=== PATIENT | female | born 1940 | race Caucasian/White ===

== ENCOUNTER 2022-02-25 06:54 | Inpatient (IN) ==
[2022-02-25] MEDS ORDERED: SODIUM CHLORIDE 0.9% 500 ML IV SCH (07:15)
--- NOTE | 2022-02-25 07:15 | Emergency Department Note ---
Impression & Plan Weakness, Urinary tract infection, Hypomagnesemia ED Provider Note NAME: STEFFANIE Yan MINOR AGE: 81 SEX: F : 1940 ARRIVES VIA: Walk-In INFORMANT: Patient, ED PROVIDER(S): Sen Alvarez DO CHIEF COMPLAINT: Weakness HPI: The patient is an 81-year-old female who presented to the emergency department with her granddaughter for evaluation of generalized weakness. Apparently the patient has been having problems for a few months. She is concerned because her symptoms are not any have been worsening and especially over the last week. She has been noticing that she is become very weak. She has difficulty breathing with any ambulation. She notices exertional dyspnea as well. She notices no orthopnea. She has had a dry cough but has had 2 episodes of COVID-19 infection since October of this year. She does not notice any lower extremity swelling. She does not notice any chest pain. She was seen by her primary crystal gazer recently and had an echocardiogram but does not know the results of this test. She does have a history of cardiomyopathy but she states this is not ischemic cardiomyopathy. She is been compliant with her usual medications. She had decreased p.o. intake. She has loose bowel movements but this is not new for her. She denies having any black or bloody bowel movements. She also notices lower abdominal pain which she states is suprapubic in nature and shoots up into her epigastric region. She notices this pain intermittently and is associated with nausea. The patient also has been noticed to have a low-grade fever around 100 degrees. She also was noted to have episodes of hypoxia when her pulse ox was checked at home. She has had exertional pulse ox is in the 80s. She is also noticed back pain but this is not new for her. She has a history of spinal stenosis. ROS: See above HPI for pertinent positives & negatives. A total of 10 systems reviewed and were otherwise negative. PAST MEDICAL HISTORY: See Below PAST SURGICAL HISTORY: See Below FAMILY HISTORY: See Below SOCIAL HISTORY: See Below HOME MEDICATIONS: See Below ALLERGIES: See Below VITALS: See Below PHYSICAL EXAMINATION: GENERAL: The patient is awake and alert. She is comfortable appearing. EYES: The conjunctivae are clear. The pupils are round and reactive. EARS, NOSE, MOUTH AND THROAT: The nose is without any evidence of any deformity. Mucous membranes are dry. NECK: The neck is nontender and supple. RESPIRATORY: Normal respiratory effort is noted there is no evidence of wheezing rhonchi or rales CARDIOVASCULAR: Regular rate and rhythm noted there no murmurs rubs or gallops normal S1 normal S2. GASTROINTESTINAL: Abdomen is soft and nondistended. There is suprapubic tenderness to palpation but no guarding rigidity. MUSCULOSKELETAL/EXTREMITIES: There is no evidence of gross deformity full range of motion is noted in the hips and shoulders. SKIN: The skin is warm and dry. Trace pedal edema was noted bilaterally. NEUROLOGIC: Patient is awake alert and oriented x3. Strength was symmetric but diminished. There is no facial droop. Speech is clear. MEDICAL DECISION MAKING: Patient is an 81-year-old female who presented to the emergency department for evaluation of weakness and shortness of breath. The patient is noticed worsening shortness of breath with exertion as well as generalized weakness over the last few weeks. The patient had COVID infection in the past. She was unsure if this was secondary to COVID. She was also noted to have hypoxia by family members previously when they checked her pulse ox at home. I discussed the patient's laboratory and radiographic studies with her. She was treated with a small fluid bolus as well as IV antibiotics. Given the patient's overall condition and findings of hypoxia at home I did discuss her case with the on- call hospitalist. The degree to evaluate the patient in the emergency department for further management and disposition. Triage Nursing notes reviewed. Prior medical records reviewed Vital Signs: reviewed and remarkable for elevated blood pressure. Differential diagnosis: Infection, dehydration, metabolic abnormality, hypo/hyperglycemia, electrolyte disturbance, anemia, hypoxia, cardiac sources, intracerebral event, toxicologic, neurologic, as well as other pathologies. ER treatment provided: See below Diagnostics interpreted by me: ECG: EKG was obtained in the emergency department. My interpretation is sinus rhythm at 67 bpm. Left bundle branch block pattern was appreciated. No previous tracing was available Cardiac Monitoring: An order was placed for continuous cardiac monitoring. The monitor shows a rate of 77 bpm with sinus rhythm. Laboratory studies: As stated above and show below. Imaging studies: See below Consultation(s): I discussed this case with Dr. Abad who is on-call for the [facility] hospitalist group. Past Med/Surg History Medical History Cardiomyopathy High cholesterol Spinal stenosis Valvular heart disease Surgical History H/O: hysterectomy History of appendectomy History of cholecystectomy Social History Smoking Status: Never smoker Feels Safe at Home: Yes Allergies Allergies Allergy/AdvReac Type Severity Reaction Status Date / Time amoxicillin [From Augmentin] Allergy Severe Anaphylaxis Unverified 02/25/22 08:50 cefuroxime Allergy Severe Anaphylaxis Unverified 02/25/22 08:50 clarithromycin Allergy Severe Anaphylaxis Unverified 02/25/22 08:50 clavulanic acid Allergy Severe Anaphylaxis Unverified 02/25/22 08:50 [From Augmentin] erythromycin base Allergy Severe Anaphylaxis Unverified 02/25/22 08:50 Penicillins Allergy Severe Anaphylaxis Unverified 02/25/22 08:50 phenobarbital Allergy Severe Anaphylaxis Unverified 02/25/22 08:50 Home Meds Home Medications Medication Instructions Recorded Confirmed Spbjhkt-Uzhdkgjln-Size-D3 3 tab PO QAM 02/25/22 02/25/22 aspirin 81 mg tablet,delayed 81 mg PO QAM 02/25/22 02/25/22 release atorvastatin 80 mg tablet 80 mg PO HS 02/25/22 02/25/22 carvedilol 25 mg tablet 25 mg PO BID 02/25/22 02/25/22 cyanocobalamin (vitamin B-12) 1,000 mcg SUBCUT .EVERY 3 WEEKS 02/25/22 02/25/22 1,000 mcg/mL injection solution esomeprazole magnesium 40 mg 40 mg PO QAM 02/25/22 02/25/22 capsule,delayed release ferrous sulfate 325 mg (65 mg 325 mg PO QAM 02/25/22 02/25/22 iron) tablet (iron) folic acid 800 mcg tablet 0.8 mg PO 3XWK 02/25/22 02/25/22 ipratropium 0.5 mg-albuterol 3 mg 3 ml INHALATION QID PRN 02/25/22 02/25/22 (2.5 mg base)/3 mL nebulization soln naproxen 500 mg tablet 500 mg PO DAILY PRN 02/25/22 02/25/22 omega 4-vkt-thc-fish oil 1,000 mg 1 cap PO QAM 02/25/22 02/25/22 (120 mg-180 mg) capsule (Fish Oil) paroxetine HCl 20 mg tablet 20 mg PO QAM 02/25/22 02/25/22 sacubitril 24 mg-valsartan 26 mg 1 tab PO BID 02/25/22 02/25/22 tablet (Entresto) spironolactone 25 mg tablet 25 mg PO QAM 02/25/22 02/25/22 tolterodine 4 mg capsule,extended 4 mg PO QAM 02/25/22 02/25/22 release 24 hr vitamins A,C,R-zbap-nwhuet 7,160 2 tab PO HS 02/25/22 02/25/22 unit-113 mg-100 unit tablet (PreserVision AREDS) Results & Data (ED) Vital Signs Vital Signs - 24 hr 02/25/22 06:54 02/25/22 07:22 02/25/22 07:30 Temperature 36.4 C L Temperature Source Oral Pulse Rate 70 68 67 Pulse Rate [Apical] Pulse Rate from SpO2 Sensor 68 71 Respiratory Rate 16 20 28 H Respiratory Effort / Characteristics Non-Labored Spontaneous Respiratory Depth Normal Respiratory Pattern Regular Blood Pressure 115/69 118/75 116/61 Blood Pressure [Left Arm] Blood Pressure Mean 84 89 79 Blood Pressure Mean [Left Arm] Blood Pressure Position Sitting Pulse Oximetry 95 94 95 Oxygen Delivery Method Room Air Room Air Room Air Oxygen Flow Rate Sepsis Recent Fever Within 48 Hours Yes Sepsis New/Unexplained Change in Mental Status No Sepsis Action Taken by Nursing No Action Required Oxygen Flow Rate - Titration Pulse Oximetry Post Tiitration 02/25/22 07:40 02/25/22 08:00 02/25/22 08:30 Temperature Temperature Source Pulse Rate 72 71 Pulse Rate [Apical] Pulse Rate from SpO2 Sensor 72 Respiratory Rate 19 Respiratory Effort / Characteristics Non-Labored Spontaneous Respiratory Depth Respiratory Pattern Regular Blood Pressure 109/55 L Blood Pressure [Left Arm] Blood Pressure Mean 73 Blood Pressure Mean [Left Arm] Blood Pressure Position Pulse Oximetry 95 91 84 L Oxygen Delivery Method Room Air Room Air Room Air Oxygen Flow Rate Sepsis Recent Fever Within 48 Hours Sepsis New/Unexplained Change in Mental Status Sepsis Action Taken by Nursing Oxygen Flow Rate - Titration 2 Pulse Oximetry Post Tiitration 96 02/25/22 09:00 02/25/22 09:30 02/25/22 10:00 Temperature Temperature Source Pulse Rate 72 69 73 Pulse Rate [Apical] Pulse Rate from SpO2 Sensor 71 69 73 Respiratory Rate 18 15 15 Respiratory Effort / Characteristics Respiratory Depth Respiratory Pattern Blood Pressure 111/62 122/62 119/57 L Blood Pressure [Left Arm] Blood Pressure Mean 78 82 77 Blood Pressure Mean [Left Arm] Blood Pressure Position Pulse Oximetry 96 95 96 Oxygen Delivery Method Nasal Cannula Nasal Cannula Nasal Cannula Oxygen Flow Rate 2 2 2 Sepsis Recent Fever Within 48 Hours Sepsis New/Unexplained Change in Mental Status Sepsis Action Taken by Nursing Oxygen Flow Rate - Titration Pulse Oximetry Post Tiitration 02/25/22 11:00 02/25/22 11:30 02/25/22 12:00 Temperature 37 C Temperature Source Oral Pulse Rate 70 77 Pulse Rate [Apical] 77 Pulse Rate from SpO2 Sensor 69 Respiratory Rate 16 22 25 H Respiratory Effort / Characteristics Respiratory Depth Respiratory Pattern Blood Pressure 132/71 148/76 H Blood Pressure [Left Arm] 127/72 Blood Pressure Mean 91 100 Blood Pressure Mean [Left Arm] 90 Blood Pressure Position Pulse Oximetry 95 96 Oxygen Delivery Method Nasal Cannula Nasal Cannula Oxygen Flow Rate 2 2 Sepsis Recent Fever Within 48 Hours Sepsis New/Unexplained Change in Mental Status Sepsis Action Taken by Nursing Oxygen Flow Rate - Titration Pulse Oximetry Post Tiitration Home Medications Current Medication List: was personally reviewed by me Laboratory Data Attestation: I reviewed the patient's lab results. Result diagrams: 02/25/22 07:27 02/25/22 07:27 Lab Results 02/25/22 02/25/22 02/25/22 Range/Units 07:27 07:27 07:27 WBC 13.20 H (4.8-10.8) K/uL RBC 3.39 L (4.2-5.4) M/uL Hgb 10.4 L (12.0-16.0) g/dL Hct 31.7 L (37-47) % MCV 93.5 (80-100) fL MCH 30.7 (25-34) pg MCHC 32.8 (32-36) g/dL RDW Std Deviation 45.9 (36.4-46.3) fL RDW Coeff of [place] 13.4 (11.5-14.5) % Plt Count 186 (130-400) K/uL MPV 10.1 (7.4-10.4) fL Immature Gran % (Auto) 0.2 % Neut % (Auto) 75.8 % Lymph % (Auto) 11.6 % [place] % (Auto) 12.0 % Eos % (Auto) 0.2 % Baso % (Auto) 0.2 % Neut # (Auto) 10.01 H (1.4-6.5) K/uL Lymph # (Auto) 1.53 (1.2-3.4) K/uL [place] # (Auto) 1.59 H (0.11-0.59) K/uL Eos # (Auto) 0.02 (0-0.5) K/uL Baso # (Auto) 0.02 (0-0.2) K/uL Immature Gran # (Auto) 0.03 H (0.00-0.02) K/uL ESR 12 (0-30) mm/hr PT 11.6 (9.0-12.0) Seconds INR 1.1 (0.9-1.1) APTT 24.4 (21.0-31.0) Seconds PTT Ratio 0.9 Sodium (136-145) mmol/L Potassium (3.5-5.1) mmol/L Chloride (98-107) mmol/L Carbon Dioxide (21-32) mmol/L Anion Gap (3-11) BUN (6-23) mg/dl Creatinine (0.6-1.2) mg/dl Est Cr Clr Drug Dosing Est GFR ( Amer) ml/min Est GFR (Non-Af Amer) ml/min BUN/Creatinine Ratio (10-20) Glucose (70-99(Fasting)) mg/dl Lactate (0.4-2.0) mmol/L Calcium (8.5-10.1) mg/dl Magnesium (1.7-2.4) mg/dl Total Bilirubin (0.2-1.0) mg/dl AST (13-39) U/L ALT (7-52) U/L Alkaline Phosphatase (34-104) U/L Total Creatine Kinase (26-192) U/L Troponin I High Sens (0-14) pg/ml C-Reactive Protein (0-0.5) mg/dl Total Protein (6.0-8.3) gm/dl Albumin (3.4-5.0) gm/dl Globulin (2.5-4.0) gm/dl Albumin/Globulin Ratio (0.9-2) Procalcitonin (0-0.5) ng/ml TSH (0.300-4.500) uIu/ml Free T4 (0.61-1.60) ng/dl Urine Color Urine Appearance (Clear) Urine pH (4.5-7.5) Ur Specific [place] (1.000-1.030) Urine Protein (Negative) Urine Glucose (UA) (Negative) Urine Ketones (Negative) Urine Blood (Negative) Urine Nitrite (Negative) Urine Bilirubin (Negative) Urine Urobilinogen (Negative) Ur Leukocyte Esterase (Negative) Urine WBC (Auto) (0-5) /hpf Urine RBC (Auto) (0-4) /hpf U Hyaline Cast (Auto) (0-5) /lpf U Epithel Cells (Auto) (0-5) /lpf Urine Bacteria (Auto) (Negative) SARS-CoV-2, RNA, NAAT (NEGATIVE) 02/25/22 02/25/22 02/25/22 Range/Units 07:27 07:27 07:27 WBC (4.8-10.8) K/uL RBC (4.2-5.4) M/uL Hgb (12.0-16.0) g/dL Hct (37-47) % MCV (80-100) fL MCH (25-34) pg MCHC (32-36) g/dL RDW Std Deviation (36.4-46.3) fL RDW Coeff of [place] (11.5-14.5) % Plt Count (130-400) K/uL MPV (7.4-10.4) fL Immature Gran % (Auto) % Neut % (Auto) % Lymph % (Auto) % Meeker % (Auto) % Eos % (Auto) % Baso % (Auto) % Neut # (Auto) (1.4-6.5) K/uL Lymph # (Auto) (1.2-3.4) K/uL [place] # (Auto) (0.11-0.59) K/uL Eos # (Auto) (0-0.5) K/uL Baso # (Auto) (0-0.2) K/uL Immature Gran # (Auto) (0.00-0.02) K/uL ESR (0-30) mm/hr PT (9.0-12.0) Seconds INR (0.9-1.1) APTT (21.0-31.0) Seconds PTT Ratio Sodium 133 L (136-145) mmol/L Potassium 3.6 (3.5-5.1) mmol/L Chloride 100 (98-107) mmol/L Carbon Dioxide 24 (21-32) mmol/L Anion Gap 9 (3-11) BUN 10 (6-23) mg/dl Creatinine 0.86 (0.6-1.2) mg/dl Est Cr Clr Drug Dosing Not Reportable Est GFR ( Amer) 72.4 ml/min Est GFR (Non-Af Amer) 62.5 ml/min BUN/Creatinine Ratio 11.6 (10-20) Glucose 112 H (70-99(Fasting)) mg/dl Lactate (0.4-2.0) mmol/L Calcium 8.6 (8.5-10.1) mg/dl Magnesium 1.1 L (1.7-2.4) mg/dl Total Bilirubin 1.1 H (0.2-1.0) mg/dl AST 9 L (13-39) U/L ALT 6 L (7-52) U/L Alkaline Phosphatase 95 (34-104) U/L Total Creatine Kinase 39 (26-192) U/L Troponin I High Sens 15.5 H (0-14) pg/ml C-Reactive Protein 10.03 H (0-0.5) mg/dl Total Protein 6.1 (6.0-8.3) gm/dl Albumin 3.6 (3.4-5.0) gm/dl Globulin 2.5 (2.5-4.0) gm/dl Albumin/Globulin Ratio 1.4 (0.9-2) Procalcitonin 0.12 (0-0.5) ng/ml TSH 5.129 H (0.300-4.500) uIu/ml Free T4 1.24 (0.61-1.60) ng/dl Urine Color Urine Appearance (Clear) Urine pH (4.5-7.5) Ur Specific [place] (1.000-1.030) Urine Protein (Negative) Urine Glucose (UA) (Negative) Urine Ketones (Negative) Urine Blood (Negative) Urine Nitrite (Negative) Urine Bilirubin (Negative) Urine Urobilinogen (Negative) Ur Leukocyte Esterase (Negative) Urine WBC (Auto) (0-5) /hpf Urine RBC (Auto) (0-4) /hpf U Hyaline Cast (Auto) (0-5) /lpf U Epithel Cells (Auto) (0-5) /lpf Urine Bacteria (Auto) (Negative) SARS-CoV-2, RNA, NAAT (NEGATIVE) 02/25/22 02/25/22 02/25/22 Range/Units 07:49 09:00 11:10 WBC (4.8-10.8) K/uL RBC (4.2-5.4) M/uL Hgb (12.0-16.0) g/dL Hct (37-47) % MCV (80-100) fL MCH (25-34) pg MCHC (32-36) g/dL RDW Std Deviation (36.4-46.3) fL RDW Coeff of [place] (11.5-14.5) % Plt Count (130-400) K/uL MPV (7.4-10.4) fL Immature Gran % (Auto) % Neut % (Auto) % Lymph % (Auto) % [place] % (Auto) % Eos % (Auto) % Baso % (Auto) % Neut # (Auto) (1.4-6.5) K/uL Lymph # (Auto) (1.2-3.4) K/uL [place] # (Auto) (0.11-0.59) K/uL Eos # (Auto) (0-0.5) K/uL Baso # (Auto) (0-0.2) K/uL Immature Gran # (Auto) (0.00-0.02) K/uL ESR (0-30) mm/hr PT (9.0-12.0) Seconds INR (0.9-1.1) APTT (21.0-31.0) Seconds PTT Ratio Sodium (136-145) mmol/L Potassium (3.5-5.1) mmol/L Chloride (98-107) mmol/L Carbon Dioxide (21-32) mmol/L Anion Gap (3-11) BUN (6-23) mg/dl Creatinine (0.6-1.2) mg/dl Est Cr Clr Drug Dosing Est GFR ( Amer) ml/min Est GFR (Non-Af Amer) ml/min BUN/Creatinine Ratio (10-20) Glucose (70-99(Fasting)) mg/dl Lactate 0.7 (0.4-2.0) mmol/L Calcium (8.5-10.1) mg/dl Magnesium (1.7-2.4) mg/dl Total Bilirubin (0.2-1.0) mg/dl AST (13-39) U/L ALT (7-52) U/L Alkaline Phosphatase (34-104) U/L Total Creatine Kinase (26-192) U/L Troponin I High Sens (0-14) pg/ml C-Reactive Protein (0-0.5) mg/dl Total Protein (6.0-8.3) gm/dl Albumin (3.4-5.0) gm/dl Globulin (2.5-4.0) gm/dl Albumin/Globulin Ratio (0.9-2) Procalcitonin (0-0.5) ng/ml TSH (0.300-4.500) uIu/ml Free T4 (0.61-1.60) ng/dl Urine Color Yellow Urine Appearance Cloudy A (Clear) Urine pH 6.0 (4.5-7.5) Ur Specific [place] 1.004 (1.000-1.030) Urine Protein Trace H (Negative) Urine Glucose (UA) Negative (Negative) Urine Ketones Negative (Negative) Urine Blood 1+ H (Negative) Urine Nitrite Positive A (Negative) Urine Bilirubin Negative (Negative) Urine Urobilinogen Negative (Negative) Ur Leukocyte Esterase 3+ H (Negative) Urine WBC (Auto) >30 H (0-5) /hpf Urine RBC (Auto) 0-4 (0-4) /hpf U Hyaline Cast (Auto) 0 (0-5) /lpf U Epithel Cells (Auto) 5-10 H (0-5) /lpf Urine Bacteria (Auto) 4+ H (Negative) SARS-CoV-2, RNA, NAAT NEGATIVE (NEGATIVE) Administered Medications Discontinued Medications Sodium Chloride (Nss) 500 mls @ 999 mls/hr IV .Q31M YARELIS Stop: 02/25/22 07:45 Last Infusion: 02/25/22 08:18 Dose: 0 mls/hr Documented by: [id number] Admin: 02/25/22 07:47 Dose: 999 mls/hr Documented by: [id number] Magnesium Sulfate/Dextrose (Magnesium Sulfate / D5w) 1 gm in 100 mls @ 100 mls/hr IV Q1H YARELIS Stop: 02/25/22 10:20 Last Infusion: 02/25/22 11:18 Dose: 0 mls/hr Documented by: [id number] Admin: 02/25/22 10:11 Dose: 100 mls/hr Documented by: [id number] Infusion: 02/25/22 09:56 Dose: 100 mls/hr Documented by: [id number] Admin: 02/25/22 08:56 Dose: 100 mls/hr Documented by: [id number] Ceftriaxone Sodium (Rocephin) 2,000 mg in 70 mls @ 140 mls/hr IV NOW STA Stop: 02/25/22 11:26 Last Admin: 02/25/22 11:18 Dose: 140 mls/hr Documented by: [id number] Ondansetron HCl (Ondansetron Inj 2 Mg/Ml 2 Ml Vial) Confirm Administered Dose 4 mg .ROUTE .STK-MED ONE Stop: 02/25/22 11:45 Last Admin: 02/25/22 11:47 Dose: 4 mg Documented by: [id number] Imaging Data Radiologist's Impression: Chest X-Ray 02/25/22 07:12 XR chest 1V portable CLINICAL HISTORY: weakness TECHNIQUE: Single frontal radiograph of the chest was obtained. Comparison: None available at the time of this dictation. FINDINGS: No lines and tubes are seen. There is borderline cardiomegaly. The lungs are clear. There is a small left pleural effusion. IMPRESSION: Small left pleural effusion. ACT 112: Negative or not required by law. Electronically signed by: Judd Hoyt M.D. 02/25/2022 7:43 AM Abdomen/Pelvis CT 02/25/22 07:20 CT SCAN OF THE ABDOMEN AND PELVIS WITHOUT IV CONTRAST CLINICAL HISTORY: Lower abdominal pain. Nausea and vomiting. COMPARISON STUDY: No priors. TECHNIQUE: CT scan of the abdomen and pelvis is performed from the lung bases to the proximal femora. Images are reviewed in the axial, sagittal, and coronal planes. IV contrast was not administered for this examination. Note that the examination was performed in suboptimal fashion without oral and IV contrast. A dose lowering technique was utilized adhering to the principles of ALARA. CT DOSE: 479.77 mGy.cm FINDINGS: Lung bases: The heart is mildly enlarged noting trace pericardial effusion. There are scattered calcified granulomas. The lung bases are otherwise clear noting bibasilar scarring/atelectasis. There is a large hiatal hernia, with the majority of the stomach located in the thorax. Liver: The unenhanced liver is normal in size, contour, and attenuation. There is no intrahepatic biliary ductal dilatation. Gallbladder: Surgically absent noting clips in the gallbladder fossa. Spleen: Normal in size and attenuation. Pancreas: The unenhanced pancreas is moderately atrophic and grossly unremarkable. Adrenal glands: Unremarkable. Kidneys: The unenhanced kidneys demonstrate cortical atrophy and are without hydronephrosis. There are no renal calculi identified. There is no evidence of contour deforming renal mass lesion. Question trace age indeterminant subcapsular hematoma of the left kidney. There is mild nonspecific bilateral perinephric stranding. Abdominal vasculature: The abdominal aorta is normal in course and caliber noting advanced atherosclerotic calcification. Bowel: There is no bowel obstruction. Mild fecal retention is seen throughout the colon. The appendix is not identified and reported surgically absent. Peritoneum: There is no intraperitoneal free air or abdominal ascites. A midline surgical scar is noted. Lymphadenopathy: None. Pelvic viscera: The bladder is normal as visualized. The uterus is surgically absent. No adnexal lesion is seen. Skeletal structures: The skeletal structures are osteopenic. There is moderate to advanced lumbar sacral spondylosis and mild scoliosis. No lytic or blastic lesions are seen. IMPRESSION: 1. Question trace age indeterminant subcapsular hemorrhage of the left kidney. This could be further assessed with a contrast-enhanced examination if clinically warranted. 2. There is mild nonspecific bilateral perinephric stranding. Correlate with urinalysis. 3. Large hiatal hernia. 4. Cardiomegaly. 5. Additional findings as above. ACT 112: Negative or not required by law. Electronically signed by: Ty Fung M.D. 02/25/2022 9:09 AM Chest CTA 02/25/22 09:24 CT angio chest PE protocol HISTORY: 81 years-old Female with PE. Acute shortness of breath TECHNIQUE: Multiple CTA images of the chest were obtained after the intravenous administration of 120 ml Optiray. Coronal and sagittal MIPS were obtained from the axial data set and were submitted for review. All measurements were obtained according to NASCET criteria. A dose lowering technique was utilized adhering to the principles of ALARA. COMPARISON: CT abdomen and pelvis of same day FINDINGS: CTA: Moderate cardiomegaly with small pericardial effusion. Atherosclerosis of the thoracic aorta without aneurysm. Mild descending thoracic aortic tortuosity. Satisfactory opacification of the pulmonary artery. No filling defects are identified to suggest thromboembolic disease. CT CHEST: No thyroid nodule or lymphadenopathy identified. Trace pleural effusions. No pne umothorax. Mild intralobular septal thickening. Subsegmental bibasilar groundglass and consolidative opacities are noted along with bronchial wall thickening. No suspicious pulmonary nodules or masses are identified. Central airways are patent. Cholecystectomy. Mid to distal esophageal wall thickening with moderate sized hiatal hernia. Nonspecific bilateral perinephric stranding. Unremarkable soft tissues. Degenerative changes of the shoulders and spine. Debris noted within the bilateral glenohumeral joints with possible rotator cuff calcific tendinosis. IMPRESSION: 1. No pulmonary emboli. 2. Cardiomegaly with suggestion of mild developing interstitial pulmonary edema. 3. Trace pleural effusions with left greater than right bibasilar opacities favoring atelectasis. 4. Moderate sized hiatal hernia. ACT 112: Negative or not required by law. The above report was generated using voice recognition software. It may contain grammatical, syntax or spelling errors. Electronically signed by: Duane Joyce M.D. 02/25/2022 10:38 AM Abdomen/Pelvis CT 02/25/22 09:27 CT SCAN OF THE ABDOMEN AND PELVIS WITH IV CONTRAST CLINICAL HISTORY: Remote fall. Follow-up abnormal left kidney. COMPARISON STUDY: Unenhanced abdominal CT performed earlier the same day 02/25/2022. TECHNIQUE: Following the IV administration of 120 cc of Optiray 320, CT scan of the abdomen and pelvis is performed from the lung bases to the proximal femora. Images are reviewed in the axial, sagittal, and coronal planes. IV contrast was administered without complication. A dose lowering technique was utilized adhering to the principles of ALARA. CT DOSE: 848.95 mGy.cm FINDINGS: Lung bases: The heart is mildly enlarged noting trace pericardial effusion. There are scattered calcified granulomas. The lung bases are otherwise clear noting bibasilar scarring/atelectasis. There is a large hiatal hernia, with the majority of the stomach located in the thorax. Liver: The contrast-enhanced liver is normal in size, contour, and attenuation. There is no intrahepatic biliary ductal dilatation. The hepatic veins and portal veins are patent. Gallbladder: Surgically absent noting clips in the gallbladder fossa. Spleen: Normal in size and attenuation. Pancreas: The unenhanced pancreas is moderately atrophic and grossly unremarkable. Adrenal glands: Unremarkable. Kidneys: The contrast-enhanced kidneys demonstrate cortical atrophy and are without hydronephrosis. The kidneys enhance symmetrically. Urothelial thickening and enhancement is noted in the renal pelvis bilaterally and involving both ureters. There is mild nonspecific bilateral perinephric stranding. Scattered subcentimeter cortical hypodensities likely represent cysts but are too small for definitive characterization. Abdominal vasculature: The abdominal aorta is normal in course and caliber noting advanced atherosclerotic calcification. Bowel: There is no bowel obstruction. Mild fecal retention is seen throughout the colon. The appendix is not identified and reported surgically absent. Peritoneum: There is trace free fluid in the pelvis. No intraperitoneal free air is identified. A midline surgical scar is noted. Lymphadenopathy: None. Pelvic viscera: The bladder wall appears mildly thickened with mucosal hyperemia. The uterus is surgically absent. No adnexal lesion is seen. Skeletal structures: The skeletal structures are osteopenic. There is moderate to advanced lumbar sacral spondylosis and mild scoliosis. No lytic or blastic lesions are seen. IMPRESSION: 1. Findings suggest cystitis with bilateral ascending urinary tract infection. Correlate with clinical findings and urinalysis. 2. There is no subcapsular hemorrhage of the left kidney. The finding questioned on today's unenhanced examination corresponds to prominent/asymmetric clinical lobulation. 3. Trace free fluid in the pelvis is nonspecific and likely reactive. 4. Large hiatal hernia. 5. Cardiomegaly. 6. Additional findings as above. ACT 112: Negative or not required by law. Electronically signed by: Ty Fung M.D. 02/25/2022 10:03 AM Discharge Plan Visit Data Chief Complaint: Shortness of Breath/Dyspnea Stated Complaint: SOB/N/V/ABD APIN ED Provider: Sen Alvarez Discharge Problem: Weakness, Urinary tract infection, Hypomagnesemia Patient Disposition: Being Evaluated by Hospitalist Forms Stand Alone Forms: My [facility] Prescriptions Prescriptions: No Action atorvastatin 80 mg tablet 80 mg PO HS RF: 0 carvedilol 25 mg tablet 25 mg PO BID RF: 0 ipratropium-albuterol 0.5 mg-3 mg(2.5 mg base)/3 mL solution for nebulization 3 ml INHALATION QID PRN (Reason: Shortness Of Breath Or Wheezing) RF: 0 tolterodine 4 mg capsule,extended release 24hr 4 mg PO QAM RF: 0 aspirin [Aspir-81] 81 mg Tablet,Delayed Release (Dr/Ec) 81 mg PO QAM RF: 0 spironolactone 25 mg tablet 25 mg PO QAM RF: 0 paroxetine HCl 20 mg tablet 20 mg PO QAM RF: 0 cyanocobalamin (vitamin B-12) 1,000 mcg/mL solution 1,000 mcg subcut .EVERY 3 WEEKS RF: 0 ferrous sulfate [iron] 325 mg (65 mg iron) Tablet 325 mg PO QAM RF: 0 esomeprazole magnesium 40 mg capsule,delayed release(DR/EC) 40 mg PO QAM RF: 0 folic acid 800 mcg Tablet 0.8 mg PO 3XWK RF: 0 naproxen 500 mg tablet 500 mg PO DAILY PRN (Reason: Back Pain) RF: 0 omega 5-jsg-lxo-fish oil [Fish Oil] 1,000 mg (120 mg-180 mg) Capsule 1 cap PO QAM RF: 0 PreserVision AREDS 7,160 unit- 113 mg-100 unit Tablet 2 tab PO HS RF: 0 Entresto 24-26 mg tablet 1 tab PO BID RF: 0 Gahodjy-Nwkiaztnf-Ipqw-D3 3 tab PO QAM RF: 0 Referrals Referrals: PCP,NO [Physician] -
--- NOTE | 2022-02-25 07:44 | XRay Report ---
XR chest 1V portable CLINICAL HISTORY: weakness TECHNIQUE: Single frontal radiograph of the chest was obtained. Comparison: None available at the time of this dictation. FINDINGS: No lines and tubes are seen. There is borderline cardiomegaly. The lungs are clear. There is a small left pleural effusion. IMPRESSION: Small left pleural effusion. ACT 112: Negative or not required by law. Electronically signed by: Judd Hoyt M.D. 02/25/2022 7:43 AM
[2022-02-25 07:46] LABS: Basophils # (auto) 0.02 K/uL (0-0.2); Basophils % (auto) 0.2 %; Eosinophils # (auto) 0.02 K/uL (0-0.5); Eosinophils % (auto) 0.2 %; Hematocrit (blood only) 31.7 % (37-47); Hemoglobin 10.4 g/dL (12.0-16.0); Immature Granulocytes # (auto) 0.03 K/uL (0.00-0.02); Immature Granulocytes % (auto) 0.2 %; Lymphocytes # (auto) 1.53 K/uL (1.2-3.4); Lymphocytes % (auto) 11.6 %; Mean Corpuscular Hemoglobin 30.7 pg (25-34); Mean Corpuscular Hgb Conc 32.8 g/dL (32-36); Mean Corpuscular Volume 93.5 fL (80-100); Mean Platelet Volume 10.1 fL (7.4-10.4); Monocytes # (auto) 1.59 K/uL (0.11-0.59); Neutrophils # (auto) 10.01 K/uL (1.4-6.5); Neutrophils % (auto) 75.8 %; Platelet Count 186 K/uL (130-400); RDW Coefficient of Variation 13.4 % (11.5-14.5); RDW Standard Deviation 45.9 fL (36.4-46.3); Red Blood Count 3.39 M/uL (4.2-5.4)
[2022-02-25 07:55] LABS: INR 1.1 (0.9-1.1); Partial Thromboplastin Ratio 0.9; Partial Thromboplastin Time 24.4 Seconds (21.0-31.0); Prothrombin Time 11.6 Seconds (9.0-12.0)
[2022-02-25 08:01] LABS: Alanine Aminotransferase 6 U/L (7-52); Albumin Globulin Ratio 1.4 (0.9-2); Albumin Level 3.6 gm/dl (3.4-5.0); Alkaline Phosphatase 95 U/L (34-104); Anion Gap 9 (3-11); Aspartate Aminotransferase 9 U/L (13-39); BUN Creatinine Ratio 11.6 (10-20); Bilirubin,Total 1.1 mg/dl (0.2-1.0); Blood Urea Nitrogen 10 mg/dl (6-23); C Reactive Protein 10.03 mg/dl (0-0.5); Calcium 8.6 mg/dl (8.5-10.1); Carbon Dioxide 24 mmol/L (21-32); Chloride 100 mmol/L (98-107); Creatine Kinase 39 U/L (26-192); Est GFR (African American) 72.4 ml/min; Est GFR (Non-African American) 62.5 ml/min; Globulin 2.5 gm/dl (2.5-4.0); Glucose 112 mg/dl (70-99(Fasting)); Magnesium 1.1 mg/dl (1.7-2.4); Potassium 3.6 mmol/L (3.5-5.1); Sodium 133 mmol/L (136-145); Total Protein 6.1 gm/dl (6.0-8.3)
[2022-02-25 08:08] LABS: Troponin I High Sensitivity 15.5 pg/ml (0-14)
[2022-02-25 08:29] LABS: Thyroid Stimulating Hormone 5.129 uIu/ml (0.300-4.500)
[2022-02-25] MEDS: MAGNESIUM SULFATE / D5W 1 GM/100 ML BAG IV SCH ×6 (08:56→23:57)
--- NOTE | 2022-02-25 09:11 | CT Scan Report ---
CT SCAN OF THE ABDOMEN AND PELVIS WITHOUT IV CONTRAST CLINICAL HISTORY: Lower abdominal pain. Nausea and vomiting. COMPARISON STUDY: No priors. TECHNIQUE: CT scan of the abdomen and pelvis is performed from the lung bases to the proximal femora. Images are reviewed in the axial, sagittal, and coronal planes. IV contrast was not administered for this examination. Note that the examination was performed in suboptimal fashion without oral and IV contrast. A dose lowering technique was utilized adhering to the principles of ALARA. CT DOSE: 479.77 mGy.cm FINDINGS: Lung bases: The heart is mildly enlarged noting trace pericardial effusion. There are scattered calci fied granulomas. The lung bases are otherwise clear noting bibasilar scarring/atelectasis. There is a large hiatal hernia, with the majority of the stomach located in the thorax. Liver: The unenhanced liver is normal in size, contour, and attenuation. There is no intrahepatic lyn iary ductal dilatation. Gallbladder: Surgically absent noting clips in the gallbladder fossa. Spleen: Normal in size and attenuation. Pancreas: The unenhanced pancreas is moderately atrophic and grossly unremarkable. Adrenal glands: Unremarkable. Kidneys: The unenhanced kidneys demonstrate cortical atrophy and are without hydronephrosis. There ar e no renal calculi identified. There is no evidence of contour deforming renal mass lesion. Question trace age indeterminant subcapsular hematoma of the left kidney. There is mild nonspecific bilateral perinephric stranding. Abdominal vasculature: The abdominal aorta is normal in course and caliber noting advanced atheroscle rotic calcification. Bowel: There is no bowel obstruction. Mild fecal retention is seen throughout the colon. The appendix is not identified and reported surgically absent. Peritoneum: There is no intraperitoneal free air or abdominal ascites. A midline surgical scar is not ed. Lymphadenopathy: None. Pelvic viscera: The bladder is normal as visualized. The uterus is surgically absent. No adnexal lesi on is seen. Skeletal structures: The skeletal structures are osteopenic. There is moderate to advanced lumbar sac ral spondylosis and mild scoliosis. No lytic or blastic lesions are seen. IMPRESSION: 1. Question trace age indeterminant subcapsular hemorrhage of the left kidney. This could be further assessed with a contrast-enhanced examination if clinically warranted. 2. There is mild nonspecific bilateral perinephric stranding. Correlate with urinalysis. 3. Large hiatal hernia. 4. Cardiomegaly. 5. Additional findings as above. ACT 112: Negative or not required by law. Electronically signed by: Ty Fung M.D. 02/25/2022 9:09 AM
[2022-02-25 09:12] LABS: T4 Free Thyroxine 1.24 ng/dl (0.61-1.60)
[2022-02-25 09:29] LABS: Appearance Urine Cloudy (Clear); Bacteria Urine Automated 4+ (Negative); Bilirubin Urine Negative (Negative); Blood Urine 1+ (Negative); Cast Urine Automated 0 /lpf (0-5); Color Urine Yellow; Glucose Urine UA Negative (Negative); Ketones Urine Negative (Negative); Leukocyte Esterase Urine 3+ (Negative); Nitrite Urine Positive (Negative); Protein Urine Trace (Negative); RBC Urine Automated 0-4 /hpf (0-4); Specific Gravity Urine 1.004 (1.000-1.030); Urobilinogen Urine Negative (Negative); WBC Urine Automated >30 /hpf (0-5)
--- NOTE | 2022-02-25 10:04 | CT Scan Report ---
CT SCAN OF THE ABDOMEN AND PELVIS WITH IV CONTRAST CLINICAL HISTORY: Remote fall. Follow-up abnormal left kidney. COMPARISON STUDY: Unenhanced abdominal CT performed earlier the same day 02/25/2022. TECHNIQUE: Following the IV administration of 120 cc of Optiray 320, CT scan of the abdomen and pelvi s is performed from the lung bases to the proximal femora. Images are reviewed in the axial, sagittal , and coronal planes. IV contrast was administered without complication. A dose lowering technique wa s utilized adhering to the principles of ALARA. CT DOSE: 848.95 mGy.cm FINDINGS: Lung bases: The heart is mildly enlarged noting trace pericardial effusion. There are scattered calci fied granulomas. The lung bases are otherwise clear noting bibasilar scarring/atelectasis. There is a large hiatal hernia, with the majority of the stomach located in the thorax. Liver: The contrast-enhanced liver is normal in size, contour, and attenuation. There is no intrahepa tic biliary ductal dilatation. The hepatic veins and portal veins are patent. Gallbladder: Surgically absent noting clips in the gallbladder fossa. Spleen: Normal in size and attenuation. Pancreas: The unenhanced pancreas is moderately atrophic and grossly unremarkable. Adrenal glands: Unremarkable. Kidneys: The contrast-enhanced kidneys demonstrate cortical atrophy and are without hydronephrosis. T he kidneys enhance symmetrically. Urothelial thickening and enhancement is noted in the renal pelvis bilaterally and involving both ureters. There is mild nonspecific bilateral perinephric stranding. Sc attered subcentimeter cortical hypodensities likely represent cysts but are too small for definitive characterization. Abdominal vasculature: The abdominal aorta is normal in course and caliber noting advanced atheroscle rotic calcification. Bowel: There is no bowel obstruction. Mild fecal retention is seen throughout the colon. The appendix is not identified and reported surgically absent. Peritoneum: There is trace free fluid in the pelvis. No intraperitoneal free air is identified. A mid line surgical scar is noted. Lymphadenopathy: None. Pelvic viscera: The bladder wall appears mildly thickened with mucosal hyperemia. The uterus is surgi coco absent. No adnexal lesion is seen. Skeletal structures: The skeletal structures are osteopenic. There is moderate to advanced lumbar sac ral spondylosis and mild scoliosis. No lytic or blastic lesions are seen. IMPRESSION: 1. Findings suggest cystitis with bilateral ascending urinary tract infection. Correlate with clinica l findings and urinalysis. 2. There is no subcapsular hemorrhage of the left kidney. The finding questioned on today's unenhance d examination corresponds to prominent/asymmetric clinical lobulation. 3. Trace free fluid in the pelvis is nonspecific and likely reactive. 4. Large hiatal hernia. 5. Cardiomegaly. 6. Additional findings as above. ACT 112: Negative or not required by law. Electronically signed by: Ty Fung M.D. 02/25/2022 10:03 AM
--- NOTE | 2022-02-25 10:40 | CT Scan Report ---
CT angio chest PE protocol HISTORY: 81 years-old Female with PE. Acute shortness of breath TECHNIQUE: Multiple CTA images of the chest were obtained after the intravenous administration of 120 ml Optiray. Coronal and sagittal MIPS were obtained from the axial data set and were submitted for review. All measurements were obtained according to NASCET criteria. A dose lowering technique was u tilized adhering to the principles of ALARA. COMPARISON: CT abdomen and pelvis of same day FINDINGS: CTA: Moderate cardiomegaly with small pericardial effusion. Atherosclerosis of the thoracic aorta without aneurysm. Mild descending thoracic aortic tortuosity. Satisfactory opacification of the pulmonary art daly. No filling defects are identified to suggest thromboembolic disease. CT CHEST: No thyroid nodule or lymphadenopathy identified. Trace pleural effusions. No pneumothorax. Mild intra lobular septal thickening. Subsegmental bibasilar groundglass and consolidative opacities are noted a long with bronchial wall thickening. No suspicious pulmonary nodules or masses are identified. Centra l airways are patent. Cholecystectomy. Mid to distal esophageal wall thickening with moderate sized hiatal hernia. Nonspeci fic bilateral perinephric stranding. Unremarkable soft tissues. Degenerative changes of the shoulders and spine. Debris noted within the bilateral glenohumeral joints with possible rotator cuff calcific tendinosis. IMPRESSION: 1. No pulmonary emboli. 2. Cardiomegaly with suggestion of mild developing interstitial pulmonary edema. 3. Trace pleural effusions with left greater than right bibasilar opacities favoring atelectasis. 4. Moderate sized hiatal hernia. ACT 112: Negative or not required by law. The above report was generated using voice recognition software. It may contain grammatical, syntax o r spelling errors. Electronically signed by: Duane Joyce M.D. 02/25/2022 10:38 AM
[2022-02-25] MEDS ORDERED: cefTRIAXone SODIUM 2,000 MG/70 ML BAG IV STA (10:57)
[2022-02-25] MEDS ORDERED: ONDANSETRON INJ 2 MG/ML 2 ML VIAL ONE (11:44)
--- NOTE | 2022-02-25 12:36 | History & Physical Report ---
Date of Service February 25, 2022 Assessment & Plan (1) Urinary tract infection: Plan: - Dysuria, fever/chills for 1-2 days and UA with 4+ bacteria, > 30 WBCs, nitrites, and leuk esterase. Urine cultures sent. - Started on Rocephin in ED, tolerating well. Patient does have a reported history of anaphylaxis due to several antibiotics including cephalosporins and penicillins, however has not had any allergic reaction/side effects in ED. - Continue w/ Rocephin for now. -Follow blood cultures and urine culture (2) Acute respiratory failure with hypoxia: Plan: Requiring 2 L nasal cannula in the ER Chest imaging with pulmonary edema and small pleural effusions proBNP elevated history of HFrEF, this is likely acute on chronic HFrEF Diurese with IV Lasix Supplemental O2 to keep pulse ox greater than 90% (3) Hypomagnesemia: Plan: - 1.1 in ED, in the setting of ongoing n/v, decreased appetite suspected to be secondary to hiatal hernia, also with UTI. Could be contributing to her weakness. - Replete and recheck in AM. (4) Hyponatremia: Plan: - Na 133, urine osm 125, urine Na 22. which is consistent with hypotonic hyponatremia secondary to CHF Doubt it is driving her weakness, but may be partially contributing. - Continue to follow on a.m. labs. Diuresis ordered (5) Weakness: Plan: - Ongoing since COVID infection, with acute worsening over the past week or so. Likely multifactorial, given her hyponatremia, hypomagnesemia, poor p.o. intake, and UTI. - Will replete magnesium, on antibiotics for infection, also provide Zofran for nausea. Continue to follow improvement in weakness with improvement of infection, electrolytes. - Will have PT and OT evaluate patient during her stay. (6) MCHUGH (dyspnea on exertion): Plan: - Chronic, longstanding issue since initial COVID infection in June. CXR/CT today negative for PE or pulmonary source of infection. - Differential at this point includes worsening of her cardiomyopathy from COVID infection/monoclonal antibody treatment vs congestive heart failure. She was recently taken off her Lasix due to borderline hypotension, does have a small pleural effusion today, however her symptoms started months prior to be taken off Lasix and have not become significantly worse without Lasix on board. Diurese with Lasix Continue supplemental O2 as needed (7) Cardiomyopathy: Plan: - EF in September 50%, echo done as outpatient 3 weeks ago for evaluation of progressive MCHUGH, however patient has not received those results. Will request these records. - Continue Entresto, Coreg, spironolactone. Recently taken off Lasix 3 weeks ago at computer technology trainer appointment due to borderline hypotension. She had previously been taking it every other day. - Will order one-time dose of IV 20 Lasix x1, given her shortness of breath, pleural effusion seen on CT. - BNP came back at 451, no previous values for reference. (8) Hyperlipidemia: Plan: - Continue atorvastatin 80 mg. (9) Hiatal hernia: Plan: - Patient has ongoing nausea and vomiting that has been worse over the past week or so. CT A/P negative for any acute process. She is status postcholecystectomy. - Suspect her nausea/vomiting is related may be due to her hiatal hernia and worsened by UTI, however it would probably be beneficial for patient to have an EGD done as an outpatient for further investigation. (10) Anemia: Plan: - Hgb 10.4, no prior labs for comparison. - Continue po iron supplementation and monitor on AM labs. (11) Urinary incontinence: Plan: - Chronic, stable. - Continue Detrol. Plan: - Admit to med/tele. - SCDs for DVT ppx. - DNR/DNI. History of Present Illness Chief Complaint: weakness Primary Care Provider: Hunter Garcia MD Jane Beaver is an 81-year-old female with past medical history significant for cardiomyopathy, hypertension, hyperlipidemia, GERD, and depression who presents today with weakness. Over the past day or so, she has developed low grade fevers at home, as well as dysuria and her baseline weakness has been worse. She is also feeling more nauseous and vomiting more than usual. This is not entirely new for her, as she does have a large hiatal hernia, but is has become worse and it has been difficulty for her to keep up up with po intake. She is also chronically SOB, this has been an ongoing issue for several months after patient had COVID-19 twice, in June and November. She has had a difficult recovery since then, with ongoing MCHUGH with a dry cough that has not been getting any better. She does have a history of cardiomyopathy with heart failure, therefore she was seen by her computer technology trainer 3 weeks ago for evaluation of her symptoms. At that point an EKG and echocardiogram was done as well as routine labs. She was taken off of Lasix then due to SBP in 90s and change in renal fu nction. EKG apparently without new changes, however they have no received results of her echo yet. Since then, she has continued to become progressively short of breath with minimal activity. Her O2 at home has been in 70-80s at various points. Her son provided her with an oxygen tank, which seems to help her breathing somewhat. She seeks further evaluation for nausea/vomiting and weakness, as well as the shortness of breath which is so severe at this point that she is unable to ambulate more than a few feet without feeling winded. In ED, she presented with vital signs stable and within normal limits. Did require 2L NC after receiving IVF, SPO2 >95% on 2L. Labs significant for WBC 13.20, CRP 10.03, ESR 12. Hgb 10.4. Magnesium 1.1, TSH 5.129. UA with WBCs, leuk esterase, nitrates, bacteria. Blood and urine cultures sent. COVID- negative. CXR with small pleural effusion, CTA of chest showed cardiomegaly with interstitial pulmonary edema. No pulmonary emboli. CT A/P without contrast showed questionable trace age-indeterminate subcapsular hemorrhage of left kidney. Follow-up CT A/P with contrast did not show evidence of this, however did show cystitis with bilateral ascending UTI. Trace free fluid in pelvis nonspecific, likely reactive. Allergies Allergy/AdvReac Type Severity Reaction Status Date / Time amoxicillin [From Augmentin] Allergy Severe Anaphylaxis Unverified 02/25/22 08:50 cefuroxime Allergy Severe Anaphylaxis Unverified 02/25/22 08:50 clarithromycin Allergy Severe Anaphylaxis Unverified 02/25/22 08:50 clavulanic acid Allergy Severe Anaphylaxis Unverified 02/25/22 08:50 [From Augmentin] erythromycin base Allergy Severe Anaphylaxis Unverified 02/25/22 08:50 Penicillins Allergy Severe Anaphylaxis Unverified 02/25/22 08:50 phenobarbital Allergy Severe Anaphylaxis Unverified 02/25/22 08:50 Home Medications Medication Instructions Recorded Confirmed Type Jviweom-Hybtqnivu-Druv-D3 3 tab PO QAM 02/25/22 02/25/22 History aspirin 81 mg tablet,delayed 81 mg PO QAM 02/25/22 02/25/22 History release atorvastatin 80 mg tablet 80 mg PO HS 02/25/22 02/25/22 History carvedilol 25 mg tablet 25 mg PO BID 02/25/22 02/25/22 History cyanocobalamin (vitamin B-12) 1,000 mcg SUBCUT .EVERY 3 WEEKS 02/25/22 02/25/22 History 1,000 mcg/mL injection solution esomeprazole magnesium 40 mg 40 mg PO QAM 02/25/22 02/25/22 History capsule,delayed release ferrous sulfate 325 mg (65 mg 325 mg PO QAM 02/25/22 02/25/22 History iron) tablet (iron) folic acid 800 mcg tablet 0.8 mg PO 3XWK 02/25/22 02/25/22 History ipratropium 0.5 mg-albuterol 3 mg 3 ml INHALATION QID PRN 02/25/22 02/25/22 H istory (2.5 mg base)/3 mL nebulization soln naproxen 500 mg tablet 500 mg PO DAILY PRN 02/25/22 02/25/22 History omega 8-pmc-qig-fish oil 1,000 mg 1 cap PO QAM 02/25/22 02/25/22 History (120 mg-180 mg) capsule (Fish Oil) paroxetine HCl 20 mg tablet 20 mg PO QAM 02/25/22 02/25/22 History sacubitril 24 mg-valsartan 26 mg 1 tab PO BID 02/25/22 02/25/22 History tablet (Entresto) spironolactone 25 mg tablet 25 mg PO QAM 02/25/22 02/25/22 History tolterodine 4 mg capsule,extended 4 mg PO QAM 02/25/22 02/25/22 History release 24 hr vitamins A,C,J-hdgz-xqoiwh 7,160 2 tab PO HS 02/25/22 02/25/22 History unit-113 mg-100 unit tablet (PreserVision AREDS) Past Med/Surg History Medical History (Updated 02/25/22 @ 23:45 by Angela Abad MD) Anemia Cardiomyopathy Hiatal hernia High cholesterol Spinal stenosis Urinary incontinence Valvular heart disease Surgical History H/O: hysterectomy History of appendectomy History of cholecystectomy Social History Smoking Status: Never smoker Hx Alcohol Use: No Hx Substance Use: No Communication Ability: Effective Bulk Fluids Handler Required: No Beliefs That Will Affect Care: None Current Living Situation: Alone Feels Safe at Home: Yes Assistive Devices: Nebulizer and Oxygen - Continuous Assistive Devices Comment: has oxygen floor concentrator but no portable, does not use at this time Review of Systems Review of Systems: Constitutional: fever/chills x1 day, generalized weakness, fatigue; no myalgias, anorexia, night sweats Eyes: No diplopia, no worsening or blurred vision ENT: normal hearing, no trouble swallowing Respiratory: progressive MCHUGH with dry cough x several months; no orthopnea, PND, SOB at rest Cardiovascular: No chest pain, tightness or palpitations Abdomen: intermittent nausea, vomiting weeks; No pain, diarrhea or constipation : dysuria x 1 day, without hematuria, increased urgency/frequency, urinary retention Musculoskeletal: No joint pain, calf pain, swelling Neurologic: No focal weakness, numbness/tingling, or balance problems Psychiatric: No anxiety or depression Skin: No rash or itch Physical Exam Physical Exam: General: awake, alert, no apparent distress Head: Normocephalic, atraumatic ENT: PERRL, EOMI, no pharyngeal exudate, mucous membranes moist Chest: Crackles heard at bilateral lung bases, patient on 2L NC Cardiac: Regular rate and rhythm, no murmur, no JVD, normal peripheral pulses, good capillary refill Abdominal: NABS x 4 quadrants, soft, nontender to palpation, no rebound, guarding or tenderness Extremities: Normal inspection, no peripheral edema or erythema, calfs nontender to palpation Psych: Normal mood and affect Neuro: AAO x 3, strength intact bilaterally and rated 5/5, no motor deficits, speech is clear, no peripheral sensory deficits Skin: no rash or erythema Results & Data Results & Data ([facility]) Vital Signs (Past 12 Hours) Vital Signs Temp Pulse Pulse Resp BP BP Pulse Ox 02/25/22 12:00 77 25 H 148/76 H 02/25/22 11:30 37 C 77 22 127/72 96 02/25/22 11:00 70 16 132/71 95 02/25/22 10:00 73 15 119/57 L 96 02/25/22 09:30 69 15 122/62 95 02/25/22 09:00 72 18 111/62 96 02/25/22 08:30 84 L 02/25/22 08:00 71 19 109/55 L 91 02/25/22 07:40 72 95 02/25/22 07:30 67 28 H 116/61 95 02/25/22 07:22 68 20 118/75 94 02/25/22 06:54 36.4 C L 70 16 115/69 95 Laboratory Results Abnormal lab results 02/25/22 02/25/22 02/25/22 Range/Units 07:27 07:27 07:27 WBC 13.20 H (4.8-10.8) K/uL RBC 3.39 L (4.2-5.4) M/uL Hgb 10.4 L (12.0-16.0) g/dL Hct 31.7 L (37-47) % Neut # (Auto) 10.01 H (1.4-6.5) K/uL [place] # (Auto) 1.59 H (0.11-0.59) K/uL Immature Gran # (Auto) 0.03 H (0.00-0.02) K/uL Sodium 133 L (136-145) mmol/L Glucose 112 H (70-99(Fasting)) mg/dl Magnesium 1.1 L (1.7-2.4) mg/dl Total Bilirubin 1.1 H (0.2-1.0) mg/dl AST 9 L (13-39) U/L ALT 6 L (7-52) U/L Troponin I High Sens 15.5 H (0-14) pg/ml C-Reactive Protein 10.03 H (0-0.5) mg/dl TSH 5.129 H (0.300-4.500) uIu/ml Urine Appearance (Clear) Urine Protein (Negative) Urine Blood (Negative) Urine Nitrite (Negative) Ur Leukocyte Esterase (Negative) Urine WBC (Auto) (0-5) /hpf U Epithel Cells (Auto) (0-5) /lpf Urine Bacteria (Auto) (Negative) 02/25/22 Range/Units 09:00 WBC (4.8-10.8) K/uL RBC (4.2-5.4) M/uL Hgb (12.0-16.0) g/dL Hct (37-47) % Neut # (Auto) (1.4-6.5) K/uL [place] # (Auto) (0.11-0.59) K/uL Immature Gran # (Auto) (0.00-0.02) K/uL Sodium (136-145) mmol/L Glucose (70-99(Fasting)) mg/dl Magnesium (1.7-2.4) mg/dl Total Bilirubin (0.2-1.0) mg/dl AST (13-39) U/L ALT (7-52) U/L Troponin I High Sens (0-14) pg/ml C-Reactive Protein (0-0.5) mg/dl TSH (0.300-4.500) uIu/ml Urine Appearance Cloudy A (Clear) Urine Protein Trace H (Negative) Urine Blood 1+ H (Negative) Urine Nitrite Positive A (Negative) Ur Leukocyte Esterase 3+ H (Negative) Urine WBC (Auto) >30 H (0-5) /hpf U Epithel Cells (Auto) 5-10 H (0-5) /lpf Urine Bacteria (Auto) 4+ H (Negative) Diagnostic Findings Chest X-Ray 02/25/22 07:12 XR chest 1V portable CLINICAL HISTORY: weakness TECHNIQUE: Single frontal radiograph of the chest was obtained. Comparison: None available at the time of this dictation. FINDINGS: No lines and tubes are seen. There is borderline cardiomegaly. The lungs are clear. There is a small left pleural effusion. IMPRESSION: Small left pleural effusion. ACT 112: Negative or not required by law. Electronically signed by: Judd Hoyt M.D. 02/25/2022 7:43 AM Abdomen/Pelvis CT 02/25/22 07:20 CT SCAN OF THE ABDOMEN AND PELVIS WITHOUT IV CONTRAST CLINICAL HISTORY: Lower abdominal pain. Nausea and vomiting. COMPARISON STUDY: No priors. TECHNIQUE: CT scan of the abdomen and pelvis is performed from the lung bases to the proximal femora. Images are reviewed in the axial, sagittal, and coronal planes. IV contrast was not administered for this examination. Note that the examination was performed in suboptimal fashion without oral and IV contrast. A dose lowering technique was utilized adhering to the principles of ALARA. CT DOSE: 479.77 mGy.cm FINDINGS: Lung bases: The heart is mildly enlarged noting trace pericardial effusion. There are scattered calcified granulomas. The lung bases are otherwise clear noting bibasilar scarring/atelectasis. There is a large hiatal hernia, with the majority of the stomach located in the thorax. Liver: The unenhanced liver is normal in size, contour, and attenuation. There is no intrahepatic biliary ductal dilatation. Gallbladder: Surgically absent noting clips in the gallbladder fossa. Spleen: Normal in size and attenuation. Pancreas: The unenhanced pancreas is moderately atrophic and grossly unremarkable. Adrenal glands: Unremarkable. Kidneys: The unenhanced kidneys demonstrate cortical atrophy and are without hydronephrosis. There are no renal calculi identified. There is no evidence of contour deforming renal mass lesion. Question trace age indeterminant subcapsular hematoma of the left kidney. There is mild nonspecific bilateral perinephric stranding. Abdominal vasculature: The abdominal aorta is normal in course and caliber noting advanced atherosclerotic calcification. Bowel: There is no bowel obstruction. Mild fecal retention is seen throughout the colon. The appendix is not identified and reported surgically absent. Peritoneum: There is no intraperitoneal free air or abdominal ascites. A midline surgical scar is noted. Lymphadenopathy: None. Pelvic viscera: The bladder is normal as visualized. The uterus is surgically absent. No adnexal lesion is seen. Skeletal structures: The skeletal structures are osteopenic. There is moderate to advanced lumbar sacral spondylosis and mild scoliosis. No lytic or blastic lesions are seen. IMPRESSION: 1. Question trace age indeterminant subcapsular hemorrhage of the left kidney. This could be further assessed with a contrast-enhanced examination if clinically warranted. 2. There is mild nonspecific bilateral perinephric stranding. Correlate with urinalysis. 3. Large hiatal hernia. 4. Cardiomegaly. 5. Additional findings as above. ACT 112: Negative or not required by law. Electronically signed by: Ty Fung M.D. 02/25/2022 9:09 AM Chest CTA 02/25/22 09:24 CT angio chest PE protocol HISTORY: 81 years-old Female with PE. Acute shortness of breath TECHNIQUE: Multiple CTA images of the chest were obtained after the intravenous administration of 120 ml Optiray. Coronal and sagittal MIPS were obtained from the axial data set and were submitted for review. All measurements were obtained according to NASCET criteria. A dose lowering technique was utilized adhering to the principles of ALARA. COMPARISON: CT abdomen and pelvis of same day FINDINGS: CTA: Moderate cardiomegaly with small pericardial effusion. Atherosclerosis of the thoracic aorta without aneurysm. Mild descending thoracic aortic tortuosity. Satisfactory opacification of the pulmonary artery. No filling defects are identified to suggest thromboembolic disease. CT CHEST: No thyroid nodule or lymphadenopathy identified. Trace pleural effusions. No pneumothorax. Mild intralobular septal thickening. Subsegmental bibasilar groundglass and consolidative opacities are noted along with bronchial wall thickening. No suspicious pulmonary nodules or masses are identified. Central airways are patent. Cholecystectomy. Mid to distal esophageal wall thickening with moderate sized hiatal hernia. Nonspecific bilateral perinephric stranding. Unremarkable soft tissues. Degenerative changes of the shoulders and spine. Debris noted within the bilateral glenohumeral joints with possible rotator cuff calcific tendinosis. IMPRESSION: 1. No pulmonary emboli. 2. Cardiomegaly with suggestion of mild developing interstitial pulmonary edema. 3. Trace pleural effusions with left greater than right bibasilar opacities fa voring atelectasis. 4. Moderate sized hiatal hernia. ACT 112: Negative or not required by law. The above report was generated using voice recognition software. It may contain grammatical, syntax or spelling errors. Electronically signed by: Duane Joyce M.D. 02/25/2022 10:38 AM Abdomen/Pelvis CT 02/25/22 09:27 CT SCAN OF THE ABDOMEN AND PELVIS WITH IV CONTRAST CLINICAL HISTORY: Remote fall. Follow-up abnormal left kidney. COMPARISON STUDY: Unenhanced abdominal CT performed earlier the same day 02/25/2022. TECHNIQUE: Following the IV administration of 120 cc of Optiray 320, CT scan of the abdomen and pelvis is performed from the lung bases to the proximal femora. Images are reviewed in the axial, sagittal, and coronal planes. IV contrast was administered without complication. A dose lowering technique was utilized adhering to the principles of ALARA. CT DOSE: 848.95 mGy.cm FINDINGS: Lung bases: The heart is mildly enlarged noting trace pericardial effusion. There are scattered calcified granulomas. The lung bases are otherwise clear noting bibasilar scarring/atelectasis. There is a large hiatal hernia, with the majority of the stomach located in the thorax. Liver: The contrast-enhanced liver is normal in size, contour, and attenuation. There is no intrahepatic biliary ductal dilatation. The hepatic veins and portal veins are patent. Gallbladder: Surgically absent noting clips in the gallbladder fossa. Spleen: Normal in size and attenuation. Pancreas: The unenhanced pancreas is moderately atrophic and grossly unremarkable. Adrenal glands: Unremarkable. Kidneys: The contrast-enhanced kidneys demonstrate cortical atrophy and are without hydronephrosis. The kidneys enhance symmetrically. Urothelial thickening and enhancement is noted in the renal pelvis bilaterally and involving both ureters. There is mild nonspecific bilateral perinephric stranding. Scattered subcentimeter cortical hypodensities likely represent cysts but are too small for definitive characterization. Abdominal vasculature: The abdominal aorta is normal in course and caliber noting advanced atherosclerotic calcification. Bowel: There is no bowel obstruction. Mild fecal retention is seen throughout the colon. The appendix is not identified and reported surgically absent. Peritoneum: There is trace free fluid in the pelvis. No intraperitoneal free air is identified. A midline surgical scar is noted. Lymphadenopathy: None. Pelvic viscera: The bladder wall appears mildly thickened with mucosal hyperemia. The uterus is surgically absent. No adnexal lesion is seen. Skeletal structures: The skeletal structures are osteopenic. There is moderate to advanced lumbar sacral spondylosis and mild scoliosis. No lytic or blastic lesions are seen. IMPRESSION: 1. Findings suggest cystitis with bilateral ascending urinary tract infection. Correlate with clinical findings and urinalysis. 2. There is no subcapsular hemorrhage of the left kidney. The finding questioned on today's unenhanced examination corresponds to prominent/asymmetric clinical lobulation. 3. Trace free fluid in the pelvis is nonspecific and likely reactive. 4. Large hiatal hernia. 5. Cardiomegaly. 6. Additional findings as above. ACT 112: Negative or not required by law. Electronically signed by: Ty Fung M.D. 02/25/2022 10:03 AM ECG Additional Comments: Normal sinus rhythm Left axis deviation Left bundle branch block Abnormal ECG No previous ECGs available Code Status & VTE Plan Code Status DNR/DNI VTE Prophylaxis Plan VTE Prophylaxis will be ordered: Yes Supervising Physician Co-Signing Physician Notes PA Supervision Note: I personally saw and examined the patient. I verified all woodruff points and agree with HERLINDA Ceron with the following exceptions and/or additions: This patient is an 81-year-old female with a history of HFrEF, hiatal hernia, urinary urge incontinence, anemia, hyperlipidemia, HTN, who presents to the ER with more subacute shortness of breath and dyspnea on exertion and hypoxia as well as with some lower abdominal pain, fevers, worsening weakness and increasing nausea. No chest pains. In the ER, she was requiring 2 L nasal cannula. Was found to have a UTI. CTA chest was negative for PE or pneumonia but did show pleural effusions and pulmonary edema. History and ROS reviewed as above O- Vitals reviewed Gen: AAOx3, NAD HEENT: Anicteric sclerae, EOMI CV: RRR no mgr nl S1S2 Pulm: Positive bibasilar crackles, no wheezing or rhonchi, breathing unlabored Abd: +BS soft NT ND no masses or hernias Ext: No edema, 2+ DP pulses Skin: No rashes, warm/dry Neuro: Full strength throughout Labs, rads, ECG reviewed A/[id number]-old female here with history as above here with acute on chronic HFrEF as well as UTI and generalized weakness due to acute illness. Plan outlined as above Continue antibiotics and follow cultures Diurese with IV Lasix and make this Lasix 20 Mg IV twice daily Follow BMP, magnesium after replacement Follow serial troponin Try to obtain records from outside cardiology, but will order echocardiogram for here to expedite work-up PG Care Time/CCT Total # of Minutes Spent Total Time Spent with Patient: Total time spent is greater than 50% in coordination of care (as documented) at patient's floor/unit and/or counseling patient: Coding Level of Care Code 47716 Initial Inpt Care Lvl 3 Diagnoses Urinary tract infection N39.0 Hematuria presence: without hematuria Urinary tract infection type: site unspecified Hypomagnesemia E83.42 Cardiomyopathy I42.9 Hyperlipidemia E78.5 Weakness R53.1 MCHUGH (dyspnea on exertion) R06.00 Hyponatremia E87.1 Hiatal hernia K44.9 Anemia D64.9 Urinary incontinence R32 Acute respiratory failure with hypoxia J96.01 (1) Urinary tract infection Hematuria presence: without hematuria Urinary tract infection type: site unspecified Qualified Code(s): N39.0 - Urinary tract infection, site not specified
[2022-02-25] MEDS ORDERED: FUROSEMIDE INJ 20 MG/2 ML VIAL IV ONE (14:43)
[2022-02-25] MEDS ORDERED: ALBUT/IPRATROP 3MG/0.5MG NEB 3 ML VIAL INH PRN (16:27)
[2022-02-25] MEDS ORDERED: POLYETHYLENE (MIRALAX) 17 GM PACK PO PRN (16:27)
[2022-02-25] MEDS ORDERED: ACETAMINOPHEN 325 MG TAB PO PRN (16:27)
[2022-02-25] MEDS ORDERED: ONDANSETRON INJ 2 MG/ML 2 ML VIAL IV PRN (16:27)
[2022-02-25] MEDS ORDERED: carvediloL 25 MG TAB PO SCH (17:00)
[2022-02-25] MEDS ORDERED: Nursing to Pharmacy Communication SCH (18:45)
[2022-02-25] MEDS ORDERED: ATORVASTATIN 40 MG TAB PO SCH (21:00)
[2022-02-25] MEDS ORDERED: CEROVITE ADV FORMULA TAB PO SCH (21:00)
[2022-02-25] MEDS ORDERED: VALSARTAN/SACUBITRIL 26/24MG TAB PO SCH (21:00)
[2022-02-26 00:20] LABS: Magnesium 2.7 mg/dl (1.7-2.4)
[2022-02-26 00:25] LABS: Troponin I High Sensitivity 32.1 pg/ml (0-14)
[2022-02-26] MEDS: MAGNESIUM SULFATE / D5W 1 GM/100 ML BAG IV SCH (00:57)
[2022-02-26] MEDS: ATORVASTATIN 40 MG TAB PO SCH (01:22)
[2022-02-26] MEDS: VALSARTAN/SACUBITRIL 26/24MG TAB PO SCH ×2 (01:22→13:20)
[2022-02-26] MEDS: PARoxetine HCL 20 MG TAB PO SCH (01:23)
[2022-02-26] MEDS: carvediloL 25 MG TAB PO SCH ×2 (01:23→14:13)
[2022-02-26] MEDS: TOLTERODINE TARTRATE LA 4 MG CAPCR PO SCH (01:24)
[2022-02-26 07:35] LABS: Basophils # (auto) 0.02 K/uL (0-0.2); Basophils % (auto) 0.2 %; Eosinophils # (auto) 0.07 K/uL (0-0.5); Eosinophils % (auto) 0.6 %; Hematocrit (blood only) 29.1 % (37-47); Hemoglobin 9.7 g/dL (12.0-16.0); Immature Granulocytes # (auto) 0.04 K/uL (0.00-0.02); Immature Granulocytes % (auto) 0.4 %; Lymphocytes # (auto) 1.33 K/uL (1.2-3.4); Lymphocytes % (auto) 11.7 %; Mean Corpuscular Hemoglobin 31.2 pg (25-34); Mean Corpuscular Hgb Conc 33.3 g/dL (32-36); Mean Corpuscular Volume 93.6 fL (80-100); Mean Platelet Volume 9.9 fL (7.4-10.4); Monocytes # (auto) 1.42 K/uL (0.11-0.59); Monocytes % (auto) 12.5 %; Neutrophils % (auto) 74.6 %; Platelet Count 171 K/uL (130-400); RDW Coefficient of Variation 13.3 % (11.5-14.5); RDW Standard Deviation 45.6 fL (36.4-46.3); Red Blood Count 3.11 M/uL (4.2-5.4); White Blood Count 11.38 K/uL (4.8-10.8)
[2022-02-26 07:55] LABS: BUN Creatinine Ratio 11.5 (10-20); Est GFR (African American) 63.4 ml/min; Est GFR (Non-African American) 54.7 ml/min; Magnesium 2.5 mg/dl (1.7-2.4); Potassium 3.1 mmol/L (3.5-5.1)
[2022-02-26] MEDS ORDERED: ASPIRIN 81 MG ECTAB PO SCH (09:00)
[2022-02-26] MEDS ORDERED: SPIRONOLACTONE 25 MG TAB PO SCH (09:00)
[2022-02-26] MEDS ORDERED: MAGNESIUM PO SCH (09:00)
[2022-02-26] MEDS ORDERED: CHOLECALCIFEROL PO SCH (09:00)
[2022-02-26] MEDS ORDERED: PANTOprazole 40 MG TAB PO SCH (09:00)
[2022-02-26] MEDS ORDERED: CALCIUM PO SCH (09:00)
[2022-02-26] MEDS ORDERED: TOLTERODINE TARTRATE LA 4 MG CAPCR PO SCH (09:00)
[2022-02-26] MEDS ORDERED: FERROUS SULFATE 325 MG TAB PO SCH (09:00)
[2022-02-26] MEDS ORDERED: PARoxetine HCL 20 MG TAB PO SCH (09:00)
[2022-02-26] MEDS ORDERED: ZINC PO SCH (09:00)
[2022-02-26] MEDS: cefTRIAXone SODIUM 2,000 MG in DEXTROSE 5% 50 ML IV SCH (09:22)
[2022-02-26] MEDS: FUROSEMIDE INJ 20 MG/2 ML VIAL IV SCH ×3 (13:19→20:18)
[2022-02-26] MEDS: SPIRONOLACTONE 25 MG TAB PO SCH (13:20)
[2022-02-26] MEDS: FERROUS SULFATE 325 MG TAB PO SCH (13:20)
[2022-02-26] MEDS: ASPIRIN 81 MG ECTAB PO SCH (13:20)
[2022-02-26] MEDS: PANTOprazole 40 MG TAB PO SCH (13:20)
[2022-02-26] MEDS: CEROVITE ADV FORMULA TAB PO SCH (13:21)
--- NOTE | 2022-02-26 17:43 | XCELERA ---
[id number]
[2022-02-26] MEDS ORDERED: Nursing to Pharmacy Communication SCH (18:15)
[2022-02-26] MEDS: POTASSIUM CHLORIDE CRTAB 20 MEQ TABCR PO SCH (20:18)
--- NOTE | 2022-02-26 20:33 | Hospitalist Progress Note ---
Date of Service February 26, 2022 Assessment & Plan (1) Urinary tract infection: Plan: - Dysuria, fever/chills for 1-2 days and UA with 4+ bacteria, > 30 WBCs, nitrites, and leuk esterase. Urine cultures sent. - Started on Rocephin in ED, tolerating well. Patient does have a reported history of anaphylaxis due to several antibiotics including cephalosporins and penicillins, however has not had any allergic reaction/side effects in ED. - Continue w/ Rocephin for now. -Follow blood cultures and urine culture (2) Acute respiratory failure with hypoxia: Plan: Requiring 2 L nasal cannula in the ER May be multifactorial, CHF, Lung pathology. Patient may benefit with PFT as an outpatient. Chest imaging with pulmonary edema and small pleural effusions proBNP elevated history of HFrEF, this is likely acute on chronic HFrEF Continue to Diurese with IV Lasix Supplemental O2 to keep pulse ox greater than 90% (3) Hypomagnesemia: Plan: - 1.1 in ED, in the setting of ongoing n/v, decreased appetite suspected to be secondary to hiatal hernia, also with UTI. Could be contributing to her weakness. - Replenished (4) Hyponatremia: Plan: - Na 133, urine osm 125, urine Na 22. which is consistent with hypotonic hyponatremia secondary to CHF Doubt it is driving her weakness, but may be partially contributing. - Continue to follow on a.m. labs. Diuresis ordered (5) Weakness: Plan: - Ongoing since COVID infection, with acute worsening over the past week or so. Likely multifactorial, given her hyponatremia, hypomagnesemia, poor p.o. intake, and UTI. - Will replete magnesium, on antibiotics for infection, also provide Zofran for nausea. Continue to follow improvement in weakness with improvement of infection, electrolytes. - Will have PT and OT evaluate patient during her stay. (6) MCHUGH (dyspnea on exertion): Plan: - Chronic, longstanding issue since initial COVID infection in June. CXR/CT today negative for PE or pulmonary source of infection. - Differential at this point includes worsening of her cardiomyopathy from COVID infection/monoclonal antibody treatment vs congestive heart failure. She was recently taken off her Lasix due to borderline hypotension, does have a small pleural effusion today, however her symptoms started months prior to be taken off Lasix and have not become significantly worse without Lasix on board. Diurese with Lasix Continue supplemental O2 as needed (7) Cardiomyopathy: Plan: - EF in September 50%, echo done as outpatient 3 weeks ago for evaluation of progressive MCHUGH, however patient has not received those results. Will request these records. - Continue Entresto, Coreg, spironolactone. Recently taken off Lasix 3 weeks ago at [employer] appointment due to borderline hypotension. She had previously been taking it every other day. - Will order one-time dose of IV 20 Lasix x1, given her shortness of breath, pleural effusion seen on CT. - BNP came back at 451, no previous values for reference. (8) Hyperlipidemia: Plan: - Continue atorvastatin 80 mg. (9) Hiatal hernia: Plan: - Patient has ongoing nausea and vomiting that has been worse over the past week or so. CT A/P negative for any acute process. She is status postcholecystectomy. - Suspect her nausea/vomiting is related may be due to her hiatal hernia and worsened by UTI, however it would probably be beneficial for patient to have an EGD done as an outpatient for further investigation. (10) Anemia: Plan: - Hgb 10.4, no prior labs for comparison. - Continue po iron supplementation and monitor on AM labs. (11) Urinary incontinence: Plan: - Chronic, stable. - Continue Detrol. Plan: - Admit to med/tele. - SCDs for DVT ppx. - DNR/DNI. Admission and Anticipated Discharge Date Admission Date: February 25, 2022 Subjective Patient reports feeling slightly better today. Review of Systems Review of Systems: All systems reviewed & are unremarkable except as noted in HPI & below Physical Exam Physical Exam: General: awake, alert, no apparent distress Head: Normocephalic, atraumatic ENT: PERRL, EOMI, no pharyngeal exudate, mucous membranes moist Chest: Clear, patient on 2L NC Cardiac: Regular rate and rhythm, no murmur, no JVD, normal peripheral pulses, good capillary refill Abdominal: NABS x 4 quadrants, soft, nontender to palpation, no rebound, guarding or tenderness Extremities: Normal inspection, no peripheral edema or erythema, calfs nontender to palpation Psych: Normal mood and affect Neuro: AAO x 3, strength intact bilaterally and rated 5/5, no motor deficits, speech is clear, no peripheral sensory deficits Skin: no rash or erythema Results & Data Results & Data ([facility]) Vital Signs (Past 12 Hours) Vital Signs Temp Pulse Pulse Resp BP Pulse Ox Pulse Ox 02/26/22 19:00 37.3 C 64 20 127/69 92 02/26/22 16:27 95 02/26/22 16:13 36.6 C 58 L 18 119/68 95 02/26/22 15:56 61 02/26/22 12:30 36.6 C 68 18 123/60 92 PG Care Time/CCT Total # of Minutes Spent Total Time Spent with Patient: Total time spent is greater than 50% in coordination of care (as documented) at patient's floor/unit and/or counseling patient: Coding Level of Care Code 64746 Subseq Hosp Care Lvl 2 Diagnoses Urinary tract infection N39.0 Hematuria presence: without hematuria Urinary tract infection type: site unspecified Acute respiratory failure with hypoxia J96.01 Hypomagnesemia E83.42 Hyponatremia E87.1 Weakness R53.1 MCHUGH (dyspnea on exertion) R06.00 Cardiomyopathy I42.9 Hyperlipidemia E78.5 Hiatal hernia K44.9 Anemia D64.9 Urinary incontinence R32 (1) Urinary tract infection Hematuria presence: without hematuria Urinary tract infection type: site unspecified Qualified Code(s): N39.0 - Urinary tract infection, site not specified
[2022-02-27] MEDS: ATORVASTATIN 40 MG TAB PO SCH (01:21)
[2022-02-27] MEDS: PARoxetine HCL 20 MG TAB PO SCH (01:21)
[2022-02-27] MEDS: carvediloL 25 MG TAB PO SCH ×2 (01:21→14:10)
[2022-02-27] MEDS: TOLTERODINE TARTRATE LA 4 MG CAPCR PO SCH (01:21)
[2022-02-27] MEDS: VALSARTAN/SACUBITRIL 26/24MG TAB PO SCH ×2 (01:22→14:10)
--- NOTE | 2022-02-27 06:14 | Electrocardiogram Report ---
Test Reason : Blood Pressure : / mmHG Vent. Rate : 067 BPM Atrial Rate : 067 BPM P-R Int : 182 ms QRS Dur : 160 ms QT Int : 412 ms P-R-T Axes : 021 -34 108 degrees QTc Int : 435 ms Normal sinus rhythm Left axis deviation Left bundle branch block Abnormal ECG No previous ECGs available Confirmed by Eliot Sheikh ([id number]) on 02/27/2022 6:13:27 AM Referred By: Confirmed By:Eliot Sheikh
[2022-02-27 06:55] LABS: Hematocrit (blood only) 31.6 % (37-47); Hemoglobin 10.6 g/dL (12.0-16.0); Mean Corpuscular Hgb Conc 33.5 g/dL (32-36); Mean Corpuscular Volume 92.4 fL (80-100); Mean Platelet Volume 9.5 fL (7.4-10.4); Platelet Count 187 K/uL (130-400); RDW Coefficient of Variation 12.9 % (11.5-14.5); Red Blood Count 3.42 M/uL (4.2-5.4); White Blood Count 8.63 K/uL (4.8-10.8)
[2022-02-27 07:14] LABS: BUN Creatinine Ratio 11.2 (10-20); Calcium 8.2 mg/dl (8.5-10.1); Creatinine Clr Calc Pharmacy 43.9 ml/min; Est GFR (African American) 61.8 ml/min; Est GFR (Non-African American) 53.3 ml/min
[2022-02-27] MEDS: POTASSIUM CHLORIDE CRTAB 20 MEQ TABCR PO SCH ×3 (08:36→20:18)
[2022-02-27] MEDS: cefTRIAXone SODIUM 2,000 MG in DEXTROSE 5% 50 ML IV SCH (08:36)
[2022-02-27] MEDS ORDERED: FOLIC ACID 400 MCG TAB PO SCH ×2 (09:00→14:00)
[2022-02-27] MEDS: PANTOprazole 40 MG TAB PO SCH (14:10)
[2022-02-27] MEDS: SPIRONOLACTONE 25 MG TAB PO SCH (14:10)
[2022-02-27] MEDS: CEROVITE ADV FORMULA TAB PO SCH (14:11)
[2022-02-27] MEDS: ASPIRIN 81 MG ECTAB PO SCH (14:11)
[2022-02-27] MEDS: FERROUS SULFATE 325 MG TAB PO SCH (14:11)
[2022-02-27] MEDS: FUROSEMIDE INJ 20 MG/2 ML VIAL IV SCH ×2 (14:11→20:18)
--- NOTE | 2022-02-27 18:04 | Cardiology Consultation ---
Date of Consultation February 27, 2022 Assessment & Plan (1) NYHA class 3 heart failure with preserved ejection fraction, with i mprovement of ejection fraction from prior measurement: (2) Chronic heart failure with preserved ejection fraction: (3) CAD (coronary artery disease): (4) Urinary tract infection: (5) Bacteremia: (6) Cardiomyopathy: (7) Hyperlipidemia: (8) MCHUGH (dyspnea on exertion): (9) Acute respiratory failure with hypoxia: ASSESSMENT/PLAN: 1. Chronic heart failure with improved EF: She does not appear to be significantly hypervolemic on examination but has improved with diuretic therapy. Unfortunately, cannot fully assess the effectiveness of the diuresis other than by symptoms. Recommend strict I&Os. Daily weights. Low-sodium diet, less than 2000 mg daily. Heart failure program referral to assist in post discharge management while arranging outpatient cardiology follow-up in her local area. Continue carvedilol, Entresto, spironolactone. Can titrate Entresto as an outpatient if able. Recommend SG LT 2 inhibitor on discharge. Continue current diuretic. Monitor renal function and electrolytes. Electrolyte replacement is being performed by primary hospitalist service. 2. Acute respiratory failure with hypoxia: Overall, symptoms have improved with diuretic therapy. Continue with plan as above. 3. Dyspnea with exertion: Likely related to heart failure but cannot exclude other etiologies as a contributing factor such as previous COVID pneumonia. She has PFTs ordered by her outpatient providers, that are currently pending. 4. CAD: Described as nonobstructive. No angina. Continue risk factor modification. Continue beta-vipin and high-intensity statin therapy. On aspirin. 5. Cardiomyopathy: Described EF in the past as low as 30%. Normal LV systolic function during this hospital stay on echo. Plan as above. 6. Bacteremia/UTI: E coli UTI but also 1 of 2 blood cultures growing E coli. Treatment as per primary hospitalist service. Low-grade temperature this morning. Could also be contributing to her overall presentation. 7. Dyslipidemia: Continue high-intensity statin therapy. 8. Nausea/vomiting: Has known hiatal hernia. If no improvement with treatment of her infection, would recommend further evaluation as per primary service. 9. Disposition: Cardiology will continue to follow. Thank you for allowing me to participate in the care of your patient. Please call for any other questions or concerns. Sincerely, Mj Sheikh M.D. History of Present Illness Reason for Consultation: Diastolic heart failure Requesting Physician: Sarwat Mcconnell Attending Physician: Sarwat Mcconnell History of Present Illness Mrs. Beaver is a very pleasant 81-year-old female with a history significant for nonischemic cardiomyopathy, heart failure with improved EF, dyslipidemia, nonobstructive CAD, pernicious anemia, GERD, and spinal stenosis. Her primary court advocate is Dr. Asher in [place]. She was admitted on 02/25/2022 with shortness of breath. History was obtained from patient but also her granddaughter, Josephine, who is a nurse in the emergency department. She had COVID-19 infection in 2020 and was treated with monoclonal therapy. She had another COVID 19 infection in October of 2021. Her shortness of breath has been worse since COVID-19 infection. She had been on Lasix since June of 2021, 20 mg every other day. This was discontinued last month, approximately 3.5 weeks ago, when she was seen by her court advocate. This was reportedly done due to mild hypotension and elevated creatinine, although labs are not known by patient or her family. She underwent echocardiogram at that time as well, once again without known results. Since discontinuation of the Lasix, her breathing has worsened. She has dyspnea with exertion. Oxygen saturation at home was noted to be 84% on room air at rest and dropped with exertion. She also has been having issues with fatigue, nausea, epigastric pain, and vomiting. She denies shortness of breath at rest. She denies orthopnea, chest pain, syncope, palpitations, melena, hematochezia, hematuria, other bleeding, or edema. Epigastric pain occurs with food and she has not had much of an appetite. She is nauseated at times and vomits, both after eating but also even sometimes during the night. Her last emesis was 02/25/2022. She maintains a low-sodium diet based on her description, and also due to the fact that she has not been consuming much food recently. She does not have a scale at home. She has been on spironolactone for years and also Entresto for the past several years after reporting an EF as low as 30%. She has undergone cardiac catheterization x3 with the most recent being 3 or 4 years ago. She reportedly has nonobstructive CAD and has not required revascularization. While here, she has been receiving Lasix 20 mg IV b.i.d.. Unfortunately, fluid balance has not been calculated as her urine output has not been collected. Her breathing has improved but not yet back to baseline. With some degree of diuresis, labs do not suggest azotemia. During this hospital stay, she has been diagnosed with UTI and had fever and dysuria prior to hospitalization. She had a low grade temperature earlier this morning. She is receiving ceftriaxone. Urine culture on 02/25/2022 was positive for E coli (pansensitive). 1 of 2 blood cultures also positive for E coli. Review of systems: As above. Review of systems otherwise negative/unremarkable. Family history: Father from [place] at the age of 69. Sister from [place] at 52. Several siblings with CAD. Social history: She denies tobacco, alcohol, or drug abuse. She is a . She has 5 children, 18 grandchildren, and 13 great grandchildren. She lives alone in the [facility], but has family nearby. She was accompanied in her hospital room by her granddaughter, Josephine, who is a nurse in the emergency department at [facility] [employer]. Allergies Allergy/AdvReac Type Severity Reaction Status Date / Time amoxicillin [From Augmentin] Allergy Severe Anaphylaxis Unverified 02/25/22 08:50 cefuroxime Allergy Severe Anaphylaxis Unverified 02/25/22 08:50 clarithromycin Allergy Severe Anaphylaxis Unverified 02/25/22 08:50 clavulanic acid Allergy Severe Anaphylaxis Unverified 02/25/22 08:50 [From Augmentin] erythromycin base Allergy Severe Anaphylaxis Unverified 02/25/22 08:50 Penicillins Allergy Severe Anaphylaxis Unverified 02/25/22 08:50 phenobarbital Allergy Severe Anaphylaxis Unverified 02/25/22 08:50 Home Medications Medication Instructions Recorded Confirmed Type Pxaejum-Rgfyzgosi-Pvnu-D3 3 tab PO QAM 02/25/22 02/25/22 History aspirin 81 mg tablet,delayed 81 mg PO QAM 02/25/22 02/25/22 History release atorvastatin 80 mg tablet 80 mg PO HS 02/25/22 02/25/22 History carvedilol 25 mg tablet 25 mg PO BID 02/25/22 02/25/22 History cyanocobalamin (vitamin B-12) 1,000 mcg SUBCUT .EVERY 3 WEEKS 02/25/22 02/25/22 History 1,000 mcg/mL injection solution esomeprazole magnesium 40 mg 40 mg PO QAM 02/25/22 02/25/22 History capsule,delayed release ferrous sulfate 325 mg (65 mg 325 mg PO QAM 02/25/22 02/25/22 History iron) tablet (iron) folic acid 800 mcg tablet 0.8 mg PO 3XWK 02/25/22 02/25/22 History ipratropium 0.5 mg-albuterol 3 mg 3 ml INHALATION QID PRN 02/25/22 02/25/22 History (2.5 mg base)/3 mL nebulization soln naproxen 500 mg tablet 500 mg PO DAILY PRN 02/25/22 02/25/22 History omega 9-vts-adc-fish oil 1,000 mg 1 cap PO QAM 02/25/22 02/25/22 History (120 mg-180 mg) capsule (Fish Oil) paroxetine HCl 20 mg tablet 20 mg PO QAM 02/25/22 02/25/22 History sacubitril 24 mg-valsartan 26 mg 1 tab PO BID 02/25/22 02/25/22 History tablet (Entresto) spironolactone 25 mg tablet 25 mg PO QAM 02/25/22 02/25/22 History tolterodine 4 mg capsule,extended 4 mg PO QAM 02/25/22 02/25/22 History release 24 hr vitamins A,C,X-tokk-wtzufb 7,160 2 tab PO HS 02/25/22 02/25/22 History unit-113 mg-100 unit tablet (PreserVision AREDS) Patient History Medical History (Updated 02/27/22 @ 18:13 by Eliot Sheikh MD) Anemia CAD (coronary artery disease) Cardiomyopathy Hiatal hernia High cholesterol Spinal stenosis Urinary incontinence Valvular heart disease Surgical History H/O: hysterectomy History of appendectomy History of cholecystectomy Social History Smoking Status: Never smoker Hx Alcohol Use: No Hx Substance Use: No Communication Ability: Effective Social Sciences Professor Required: No Beliefs That Will Affect Care: None marital status: / Current Living Situation: Alone How many Children do You have: 4 Feels Safe at Home: Yes Assistive Devices: Oxygen - at Night Assistive Devices Comment: oxygen concentrator only Physical Exam Physical Exam: Gen.: No acute distress. Alert. HEENT: Anicteric sclera. Neck: No JVD. No hepatic jugular reflux noted. No bruits. Normal carotid upstrokes bilaterally. Cardiac: PMI was nonpalpable. No ventricular heave. Regular. Normal S1-S2. No murmurs, rubs, or gallops. Pulmonary: Clear to auscultation bilaterally without wheezes, rales, or rhonchi. Abdomen: Soft, nontender, nondistended, with normoactive bowel sounds. No bruits noted. Extremities: 2+ radial pulses bilaterally. 2+ posterior tibialis pulses bilaterally. No significant pitting edema. No cyanosis. Psychiatric: Affect appears appropriate. Results & Data ([facility]) Vital Signs (Past 12 Hours) Vital Signs Temp Pulse Pulse Resp BP BP Pulse Ox 02/27/22 15:00 65 02/27/22 14:19 37.6 C H 95 H 18 106/69 96 02/27/22 11:24 37 C 67 20 101/57 L 94 02/27/22 08:00 66 02/27/22 07:13 37 C 66 20 100/61 93 02/27/22 04:54 37.3 C Intake & Output 02/25/22 02/26/22 02/27/22 02/28/22 06:59 06:59 06:59 06:59 Intake Total 2768.333 / 2768.333 1260 / 1260 190 / 190 Output Total 500 / 500 Balance 2268.333 / 2268.333 1259 / 1259 189 / 189 Weight 165 lb 9.074 oz 164 lb 3.91 oz Laboratory Results Laboratory Results - last 24 hr 02/27/22 02/27/22 02/27/22 06:39 06:39 06:39 WBC 8.63 RBC 3.42 L Hgb 10.6 L Hct 31.6 L MCV 92.4 MCH 31.0 MCHC 33.5 RDW Std Deviation 44.0 RDW Coeff of [place] 12.9 Plt Count 187 MPV 9.5 Sodium 134 L Potassium 3.0 L Chloride 98 Carbon Dioxide 30 Anion Gap 6 BUN 11 Creatinine 0.98 Est Cr Clr Drug Dosing 43.9 Est GFR ( Amer) 61.8 Est GFR (Non-Af Amer) 53.3 BUN/Creatinine Ratio 11.2 Glucose 112 H Calcium 8.2 L B-Natriuretic Peptide 176 H Diagnostic Findings Telemetry personally reviewed: Sinus rhythm. No arrhythmia. ECG personally reviewed from 02/25/2022 7:05 a.m.: Sinus rhythm 67 beats per minute. LBBB. Echo 02/26/2022: Normal LV size, wall motion, systolic function. EF 60-65%. Moderate left atrial dilation. Mild MR. Normal RVSP. Chest CTA 02/25/2022: No PE. Cardiomegaly with suggestion of mild developing interstitial pulmonary edema per Radiology. Trace pleural effusions with left greater than right bibasilar opacities, favoring atelectasis per Radiology. Moderate hiatal hernia. Medications Administered Current Inpatient Medications Acetaminophen (Acetaminophen 325 Mg Tab) 650 mg PO Q4H PRN PRN Reason: Pain or Fever Stop: 03/27/22 16:26 Albuterol (Albut/Ipratrop 3mg/0.5mg Neb 3 Ml Vial) 3 ml INH QIDR PRN; Protocol PRN Reason: Shortness Of Breath Or Wheezing Stop: 03/27/22 16:26 Aspirin (Aspirin 81 Mg Ectab) 81 mg PO DAILY@1400 [facility] Stop: 03/28/22 13:59 Last Admin: 02/27/22 14:11 Dose: 81 mg Documented by: Atorvastatin Calcium (Atorvastatin 40 Mg Tab) 80 mg PO DAILY@0200 [facility] Stop: 03/28/22 01:59 Last Admin: 02/27/22 01:21 Dose: 80 mg Documented by: Carvedilol (Carvedilol 25 Mg Tab) [address] [facility] Stop: 03/28/22 01:59 Last Admin: 02/27/22 14:10 Dose: 25 mg Documented by: Ferrous Sulfate (Ferrous Sulfate 325 Mg Tab) 325 mg PO DAILY@1400 [facility] Stop: 03/28/22 13:59 Last Admin: 02/27/22 14:11 Dose: 325 mg Documented by: Folic Acid (Folic Acid 400 Mcg Tab) 800 mcg PO MoWeFr@1400 [facility] Stop: 03/29/22 13:59 Last Admin: 02/27/22 14:11 Dose: 800 mcg Documented by: Furosemide (Furosemide Inj 20 Mg/2 Ml Vial) 20 mg IV 1300,2100 [facility] Stop: 03/28/22 20:59 Last Admin: 02/27/22 14:11 Dose: 20 mg Documented by: Ceftriaxone Sodium 2,000 mg/ (Dextrose) 70 mls @ 100 mls/hr IV DAILY [facility]; Protocol Stop: 03/03/22 08:59 Last Infusion: 02/27/22 09:30 Dose: Infused Documented by: Multivitamins/Minerals (Cerovite Adv Formula Tab) 1 tab PO DAILY@1400 [facility]; Protocol Stop: 03/28/22 13:59 Last Admin: 02/27/22 14:11 Dose: 1 tab Documented by: Ondansetron HCl (Ondansetron Inj 2 Mg/Ml 2 Ml Vial) 4 mg IV Q6H PRN PRN Reason: Nausea Stop: 03/27/22 16:26 Pantoprazole Sodium (Pantoprazole 40 Mg Tab) 40 mg PO DAILY@1400 [facility]; Protocol Stop: 03/28/22 13:59 Last Admin: 02/27/22 14:10 Dose: 40 mg Documented by: Paroxetine HCl (Paroxetine Hcl 20 Mg Tab) 20 mg PO DAILY@0200 [facility] Stop: 03/28/22 01:59 Last Admin: 02/27/22 01:21 Dose: 20 mg Documented by: Polyethylene Glycol (Polyethylene (Miralax) 17 Gm Pack) 17 gm PO DAILY PRN PRN Reason: Constipation Stop: 03/27/22 16:26 Potassium Chloride (Potassium Chloride Crtab 20 Meq Tabcr) [address] [facility] Stop: 03/28/22 20:59 Last Admin: 02/27/22 14:12 Dose: 20 meq Documented by: Sacubitril/Valsartan (Valsartan/Sacubitril 26/24mg Tab) [address] [facility] Stop: 03/28/22 01:59 Last Admin: 02/27/22 14:10 Dose: 1 tab Documented by: Spironolactone (Spironolactone 25 Mg Tab) 25 mg PO DAILY@1400 [facility] Stop: 03/28/22 13:59 Last Admin: 02/27/22 14:10 Dose: 25 mg Documented by: Tolterodine Tartrate (Tolterodine Tartrate La 4 Mg Capcr) 4 mg PO DAILY@0200 [facility] Stop: 03/28/22 01:59 Last Admin: 02/27/22 01:21 Dose: 4 mg Documented by: PG Care Time/CCT Total # of Minutes Spent Total Time Spent with Patient: Total time spent is greater than 50% in coordination of care (as documented) at patient's floor/unit and/or counseling patient: Coding Level of Care Code 05137 Initial Inpt Care Lvl 3 Diagnoses NYHA class 3 heart failure with preserved ejection fraction, with improvement of ejection fraction from prior measurement I50.30 Chronic heart failure with preserved ejection fraction I50.32 CAD (coronary artery disease) I25.10 Urinary tract infection N39.0 Hematuria presence: without hematuria Urinary tract infection type: site unspecified Bacteremia R78.81 Cardiomyopathy I42.9 Hyperlipidemia E78.5 MCHUGH (dyspnea on exertion) R06.00 Acute respiratory failure with hypoxia J96.01 (1) Urinary tract infection Hematuria presence: without hematuria Urinary tract infection type: site unspecified Qualified Code(s): N39.0 - Urinary tract infection, site not specified
--- NOTE | 2022-02-27 22:42 | Hospitalist Progress Note ---
Date of Service February 27, 2022 Assessment & Plan (1) Urinary tract infection: Plan: - Dysuria, fever/chills for 1-2 days and UA with 4+ bacteria, > 30 WBCs, nitrites, and leuk esterase. Urine cultures sent. - Started on Rocephin in ED, tolerating well. Patient does have a reported history of anaphylaxis due to several antibiotics including cephalosporins and penicillins, however has not had any allergic reaction/side effects in ED. - Continue w/ Rocephin for now. -Cultures show: bacteremia and urine positive for biggs sensitive E. Coli -will transition to cipro on 02/28 -Follow blood cultures and urine culture (2) Acute respiratory failure with hypoxia: Plan: Requiring 2 L nasal cannula in the ER May be multifactorial, CHF, Lung pathology. Also ordered incentive spirometry for atelectasis. Patient may benefit with PFT as an outpatient. Chest imaging with pulmonary edema and small pleural effusions proBNP elevated history of HFrEF, this is likely acute on chronic HFrEF Continue to Diurese with IV Lasix Supplemental O2 to keep pulse ox greater than 90% will try to titrate down. (3) Hypomagnesemia: Plan: - 1.1 in ED, in the setting of ongoing n/v, decreased appetite suspected to be secondary to hiatal hernia, also with UTI. Could be contributing to her weakness. - Replenished (4) Hyponatremia: Plan: - Na 133, urine osm 125, urine Na 22. which is consistent with hypotonic hyponatremia secondary to CHF Doubt it is driving her weakness, but may be partially contributing. - Continue to follow on a.m. labs. Diuresis ordered (5) Weakness: Plan: - Ongoing since COVID infection, with acute worsening over the past week or so. Likely multifactorial, given her hyponatremia, hypomagnesemia, poor p.o. intake, and UTI. - Will replete magnesium, on antibiotics for infection, also provide Zofran for nausea. Continue to follow improvement in weakness with improvement of infection, electrolytes. - Will have PT and OT evaluate patient during her stay. (6) MCHUGH (dyspnea on exertion): Plan: - Chronic, longstanding issue since initial COVID infection in June. CXR/CT today negative for PE or pulmonary source of infection. - Differential at this point includes worsening of her cardiomyopathy from COVID infection/monoclonal antibody treatment vs congestive heart failure. She was recently taken off her Lasix due to borderline hypotension, does have a small pleural effusion today, however her symptoms started months prior to be taken off Lasix and have not become significantly worse without Lasix on board. Diurese with Lasix Continue supplemental O2 as needed (7) Cardiomyopathy: Plan: - EF in September 50%, echo done as outpatient 3 weeks ago for evaluation of progressive MCHUGH, however patient has not received those results. Will request these records. - Continue Entresto, Coreg, spironolactone. 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 She had previously been taking it every other day. - Will order one-time dose of IV 20 Lasix x1, given her shortness of breath, pleural effusion seen on CT. - BNP came back at 451, no previous values for reference. (8) Hyperlipidemia: Plan: - Continue atorvastatin 80 mg. (9) Hiatal hernia: Plan: - Patient has ongoing nausea and vomiting that has been worse over the past week or so. CT A/P negative for any acute process. She is status postcholecystectomy. - Suspect her nausea/vomiting is related may be due to her hiatal hernia and worsened by UTI, however it would probably be beneficial for patient to have an EGD done as an outpatient for further investigation. will need to set up GI appointment for patient. (10) Anemia: Plan: - Hgb 10.4, now 10.6 - Continue po iron supplementation and monitor on AM labs. (11) Urinary incontinence: Plan: - Chronic, stable. - Continue Detrol. Plan: - Admit to med/tele. - SCDs for DVT ppx. - DNR/DNI. Admission and Anticipated Discharge Date Admission Date: February 25, 2022 Subjective Patient reports breathing better. Review of Systems Review of Systems: All systems reviewed & are unremarkable except as noted in HPI & below Physical Exam Physical Exam: General: awake, alert, no apparent distress Head: Normocephalic, atraumatic ENT: PERRL, EOMI, no pharyngeal exudate, mucous membranes moist Chest: Clear, patient on 2L NC Cardiac: Regular rate and rhythm, no murmur, no JVD, normal peripheral pulses, good capillary refill Abdominal: NABS x 4 quadrants, soft, nontender to palpation, no rebound, guarding or tenderness Extremities: Normal inspection, no peripheral edema or erythema, calfs nontender to palpation Psych: Normal mood and affect Neuro: AAO x 3, strength intact bilaterally and rated 5/5, no motor deficits, speech is clear, no peripheral sensory deficits Skin: no rash or erythema Results & Data Results & Data ([facility]) Vital Signs (Past 12 Hours) Vital Signs Temp Pulse Pulse Resp BP BP Pulse Ox 02/27/22 19:15 36.7 C 59 L 18 109/60 94 02/27/22 15:00 65 02/27/22 14:19 37.6 C H 95 H 18 106/69 96 02/27/22 11:24 37 C 67 20 101/57 L 94 PG Care Time/CCT Total # of Minutes Spent Total Time Spent with Patient: Total time spent is greater than 50% in coordination of care (as documented) at patient's floor/unit and/or counseling patient: Coding Level of Care Code 40285 Subseq Hosp Care Lvl 2 Diagnoses Urinary tract infection N39.0 Hematuria presence: without hematuria Urinary tract infection type: site unspecified Acute respiratory failure with hypoxia J96.01 Hypomagnesemia E83.42 Hyponatremia E87.1 Weakness R53.1 MCHUGH (dyspnea on exertion) R06.00 Cardiomyopathy I42.9 Hyperlipidemia E78.5 Hiatal hernia K44.9 Anemia D64.9 Urinary incontinence R32 (1) Urinary tract infection Hematuria presence: without hematuria Urinary tract infection type: site unspecified Qualified Code(s): N39.0 - Urinary tract infection, site not specified
[2022-02-28] MEDS: carvediloL 25 MG TAB PO SCH ×2 (01:09→13:36)
[2022-02-28] MEDS: ATORVASTATIN 40 MG TAB PO SCH (01:09)
[2022-02-28] MEDS: VALSARTAN/SACUBITRIL 26/24MG TAB PO SCH ×2 (01:09→13:36)
[2022-02-28] MEDS: TOLTERODINE TARTRATE LA 4 MG CAPCR PO SCH (01:09)
[2022-02-28] MEDS: PARoxetine HCL 20 MG TAB PO SCH (01:10)
[2022-02-28 08:51] LABS: BUN Creatinine Ratio 9.8 (10-20); Calcium 8.6 mg/dl (8.5-10.1); Creatinine Clr Calc Pharmacy 38.1 ml/min; Est GFR (African American) 52.6 ml/min; Est GFR (Non-African American) 45.4 ml/min; Potassium 4.1 mmol/L (3.5-5.1)
[2022-02-28] MEDS ORDERED: CIPROFLOXACIN 500 MG TAB PO SCH (09:00)
[2022-02-28] MEDS ORDERED: FUROSEMIDE 20 MG TAB PO SCH (09:00)
[2022-02-28] MEDS: POTASSIUM CHLORIDE CRTAB 20 MEQ TABCR PO SCH (10:18)
[2022-02-28] MEDS: FERROUS SULFATE 325 MG TAB PO SCH (13:36)
[2022-02-28] MEDS: SPIRONOLACTONE 25 MG TAB PO SCH (13:36)
[2022-02-28] MEDS: CEROVITE ADV FORMULA TAB PO SCH (13:36)
[2022-02-28] MEDS: ASPIRIN 81 MG ECTAB PO SCH (13:36)
[2022-02-28] MEDS: PANTOprazole 40 MG TAB PO SCH (13:36)
[2022-02-28] MEDS ORDERED: FUROSEMIDE 20 MG TAB PO STA (15:04)
[2022-02-28] MEDS ORDERED: ADVANCED PROBIOTIC 1250 MG CAPSULE PO SCH (16:00)
--- NOTE | 2022-02-28 16:14 | Discharge Summary ---
Date of Service February 28, 2022 Admission HPI Per Admitting Provider Jane Beaver is an 81-year-old female with past medical history significant for cardiomyopathy, hypertension, hyperlipidemia, GERD, and depression who presents today with weakness. Over the past day or so, she has developed low grade fevers at home, as well as dysuria and her baseline weakness has been worse. She is also feeling more nauseous and vomiting more than usual. This is not entirely new for her, as she does have a large hiatal hernia, but is has become worse and it has been difficulty for her to keep up up with po intake. She is also chronically SOB, this has been an ongoing issue for several months after patient had COVID-19 twice, in June and November. She has had a difficult recovery since then, with ongoing MCHUGH with a dry cough that has not been getting any better. She does have a history of cardiomyopathy with heart failure, therefore she was seen by her science liaison 3 weeks ago for evaluation of her symptoms. At that point an EKG and echocardiogram was done as well as routine labs. She was taken off of Lasix then due to SBP in 90s and change in renal function. EKG apparently without new changes, however they have no received results of her echo yet. Since then, she has continued to become progressively short of breath with minimal activity. Her O2 at home has been in 70-80s at various points. Her son provided her with an oxygen tank, which seems to help her breathing somewhat. She seeks further evaluation for nausea/vomiting and weakness, as well as the shortness of breath which is so severe at this point that she is unable to ambulate more than a few feet without feeling winded. In ED, she presented with vital signs stable and within normal limits. Did require 2L NC after receiving IVF, SPO2 >95% on 2L. Labs significant for WBC 13.20, CRP 10.03, ESR 12. Hgb 10.4. Magnesium 1.1, TSH 5.129. UA with WBCs, leuk esterase, nitrates, bacteria. Blood and urine cultures sent. COVID- negative. CXR with small pleural effusion, CTA of chest showed cardiomegaly with interstitial pulmonary edema. No pulmonary emboli. CT A/P without contrast showed questionable trace age-indeterminate subcapsular hemorrhage of left kidney. Follow-up CT A/P with contrast did not show evidence of this, however did show cystitis with bilateral ascending UTI. Trace free fluid in pelvis nonspecific, likely reactive. Principal Diagnosis E. Coli bacteremia Acute congestive heart failure Discharge Exam Constitutional WD/WN, vitals as above Respiratory normal respiratory effort, lungs clear to auscultation Cardiovascular RRR, no murmur, no edema Gastrointestinal (Abdomen) normal bowel sounds, soft, nontender, no hepatosplenomegaly Musculoskeletal no cyanosis or clubbing, extremities motor strength 5/5 Skin no rashes, warm and dry Neurologic moves all extremities and awake; not confused Psychiatric A+Ox3, euthymic affect Discharge Data Allergies Allergy/AdvReac Type Severity Reaction Status Date / Time amoxicillin [From Augmentin] Allergy Severe Anaphylaxis Unverified 02/25/22 08:50 cefuroxime Allergy Severe Anaphylaxis Unverified 02/25/22 08:50 clarithromycin Allergy Severe Anaphylaxis Unverified 02/25/22 08:50 clavulanic acid Allergy Severe Anaphylaxis Unverified 02/25/22 08:50 [From Augmentin] erythromycin base Allergy Severe Anaphylaxis Unverified 02/25/22 08:50 Penicillins Allergy Severe Anaphylaxis Unverified 02/25/22 08:50 phenobarbital Allergy Severe Anaphylaxis Unverified 02/25/22 08:50 Consultations 02/25/22 12:17 ED Decision to Admit Stat 02/27/22 09:27 Consult Cardiology Routine 02/27/22 18:02 [facility] [place] Routine Ordered Studies 02/25/22 07:20 CT abd pelvis wo con Stat IMPRESSION: 1. Question trace age indeterminant subcapsular hemorrhage of the left kidney. This could be further assessed with a contrast-enhanced examination if clinically warranted. 2. There is mild nonspecific bilateral perinephric stranding. Correlate with urinalysis. 3. Large hiatal hernia. 4. Cardiomegaly. 5. Additional findings as above. 02/25/22 09:24 CT angio chest PE protocol Stat IMPRESSION: 1. No pulmonary emboli. 2. Cardiomegaly with suggestion of mild developing interstitial pulmonary edema. 3. Trace pleural effusions with left greater than right bibasilar opacities favoring atelectasis. 4. Moderate sized hiatal hernia. 02/25/22 09:27 CT abd pelvis IV con only Stat IMPRESSION: 1. Findings suggest cystitis with bilateral ascending urinary tract infection. Correlate with clinical findings and urinalysis. 2. There is no subcapsular hemorrhage of the left kidney. The finding questioned on today's unenhanced examination corresponds to prominent/asymmetric clinical lobulation. 3. Trace free fluid in the pelvis is nonspecific and likely reactive. 4. Large hiatal hernia. 5. Cardiomegaly. 6. Additional findings as above. Hospital Course (1) Urinary tract infection: Jane Beaver is an 81 year old female admitted at [facility] from February 25 - 2021 due to generalized weakness and low grade fevers. She was diagnosed with E. coli bacteremia with suspected bilateral pyelonephritis based on imaging. Of note she had no specific urinary symptoms. This was initially treated with intravenous ceftriaxone and switched to ciprofloxacin on day of discharge to complete a total 7 day course. Given quick resolution of symptoms and complete source control this should be adequate duration. Recommend she takes probiotics while on this antibiotic. She was also treated for acute congestive heart failure after recently stopping her usual diuretics for the last few weeks. She was treated with intravenous Lasix 20mg IV BID to good effect during her inpatient stay therefore will switch to Lasix 40mg PO daily on discharge on discussion with cardiology with close follow up in heart failure clinic. Her blood pressure has been low normal here but without significant symptoms therefore her carvedilol and Entresto dosing has not been changed however if she is to increased lightheadedness would consider reducing her carvedilol dosing. Her shortness of breath has significantly improved during her admission and 6 minute walk test on day of discharge showed she did not need any oxygen. She also reports having a chronic post nasal drip therefore Flonase was prescribed on discharge. Given non-seasonal nature of this however if Flonase is not effective she may benefit from ipratropium nasal spray and she was advised to follow up with her PCP regarding this. Magnesium level was 1.1 on admission. This was replaced and last measured on 02/26 @ 2.5. Consider repeating measurement in approximately 1 month to see if she needs ongoing replacement especially with diuretic use. (2) Acute respiratory failure with hypoxia: (3) Hypomagnesemia: (4) Hyponatremia: (5) Weakness: (6) MCHUGH (dyspnea on exertion): (7) Cardiomyopathy: (8) Hyperlipidemia: (9) Hiatal hernia: (10) Anemia: (11) Urinary incontinence: Total Time Total Time Spent Total Time Spent (In Minutes): 50 Discharge Plan Discharge Items Patient Disposition: Home - Self-Care Reason For Visit: UTI Discharge Diagnosis: E. Coli bacteremia Acute congestive heart failure Activity: Resume your previous activity Non-emergency contact: Primary Care Provider Call non-emergency contact if: you have any medication questions and your symptoms worsen Follow-up/Referrals: Josephine Cowan PA-C [Physician It Compliance Manager] - 03/08/22 9:30 am (THIS IS A VIRTUAL APPOINTMENT. WILL BE DONE BY PHONE) Hunter Garcia MD [Primary Care Provider] - Diet: Heart Healthy and Low Sodium (2gm) Addtl Attending Provider Instructions: You were admitted at [facility] from February 25 - 2021 due to generalized weakness and low grade fevers. You were diagnosed with E. coli bacteremia (bacteria in your blood) from a urinary tract infection. This was initially treated with intravenous ceftriaxone (antibiotic) and switched to ciprofloxacin on day of discharge to complete a total 7 day course. Recommend taking probiotics while on this antibiotic. You were also treated for acute congestive heart failure with intravenous Lasix during your admission in collaboration with cardiology. Please continue on Lasix 40mg once daily on discharge to maintain your fluid status and follow up with Aga Cowan in clinic for continuous adjustment of this. If you feel lightheaded or dizzy please call your science liaison for advice regarding reducing your blood pressure medication as your blood pressure has been low normal here. Potassium supplementation started while on Lasix as this can reduce your potassium levels. You were also noted to have a post nasal drip. Recommend trial use of fluticasone nasal spray for this once daily. If this is not effective recommend discussing ipratropium nasal spray for chronic post nasal drip with your primary care physician. Pending Studies at Discharge: No Stand-Alone Forms: [facility], Smoking Cessation Medications and DC Order Prescriptions: New ciprofloxacin HCl 500 mg Tablet 500 mg PO BID 4 Days Qty: 8 RF: 0 Advanced Probiotic 625 mg (10 billion cell) Capsule 2 cap PO DAILY 4 Days Qty: 8 RF: 0 fluticasone propionate [Flonase Allergy Relief] 50 mcg/actuation spray,suspension 2 spray intranasal DAILY Qty: 16 RF: 0 furosemide [Lasix] 40 mg tablet 40 mg PO DAILY Qty: 30 RF: 0 potassium chloride 20 mEq tablet extended release 20 meq PO DAILY Qty: 30 RF: 0 Continued atorvastatin 80 mg tablet 80 mg PO HS RF: 0 carvedilol 25 mg tablet 25 mg PO BID RF: 0 ipratropium-albuterol 0.5 mg-3 mg(2.5 mg base)/3 mL solution for nebulization 3 ml INHALATION QID PRN (Reason: Shortness Of Breath Or Wheezing) RF: 0 tolterodine 4 mg capsule,extended release 24hr 4 mg PO QAM RF: 0 aspirin 81 mg Tablet,Delayed Release (Dr/Ec) 81 mg PO QAM RF: 0 spironolactone 25 mg tablet 25 mg PO QAM RF: 0 paroxetine HCl 20 mg tablet 20 mg PO QAM RF: 0 cyanocobalamin (vitamin B-12) 1,000 mcg/mL solution 1,000 mcg subcut .EVERY 3 WEEKS RF: 0 ferrous sulfate [iron] 325 mg (65 mg iron) Tablet 325 mg PO QAM RF: 0 esomeprazole magnesium 40 mg capsule,delayed release(DR/EC) 40 mg PO QAM RF: 0 folic acid 800 mcg Tablet 0.8 mg PO 3XWK RF: 0 naproxen 500 mg tablet 500 mg PO DAILY PRN (Reason: Back Pain) RF: 0 omega 1-vyx-lrt-fish oil [Fish Oil] 1,000 mg (120 mg-180 mg) Capsule 1 cap PO QAM RF: 0 PreserVision AREDS 7,160 unit- 113 mg-100 unit Tablet 2 tab PO HS RF: 0 Entresto 24-26 mg tablet 1 tab PO BID RF: 0 [id number]-[id number]-Uqbw-D3 3 tab PO QAM RF: 0 Discharge Orders: Discharge Order (Routine); Ordered 02/28/22 Ordered By: Chino Ratliff Admission Data Admit Date/Time: 02/25/22 12:41 Attending Provider: Chino Ratliff Admit Provider: Angela Abad Primary Care Provider: Hunter Garcia Other Providers: Angela Abad ; Eliot Sheikh ; Josephine Cowan Other Interventions: Discharge Summary Assessment (RN) Last Done: 02/28/22 19:18 Coding Level of Care Code D/C DAY MANAGEMENT >30 MINS Diagnoses Urinary tract infection N39.0 Hematuria presence: without hematuria Urinary tract infection type: site unspecified Acute respiratory failure with hypoxia J96.01 Hypomagnesemia E83.42 Hyponatremia E87.1 Weakness R53.1 MCHUGH (dyspnea on exertion) R06.00 Cardiomyopathy I42.9 Hyperlipidemia E78.5 Hiatal hernia K44.9 Anemia D64.9 Urinary incontinence R32
--- NOTE | 2022-02-28 17:50 | Cardiology Progress Note ---
Date of Service February 28, 2022 Assessment & Plan (1) NYHA class 3 heart failure with preserved ejection fraction, with improv ement of ejection fraction from prior measurement: (2) Chronic heart failure with preserved ejection fraction: (3) CAD (coronary artery disease): (4) Urinary tract infection: (5) Bacteremia: (6) Cardiomyopathy: (7) Hyperlipidemia: (8) MCHUGH (dyspnea on exertion): (9) Acute respiratory failure with hypoxia: Plan: ASSESSMENT/PLAN: 1. Chronic heart failure with improved EF: She does not appear to be significantly hypervolemic on examination but has improved with diuretic therapy. Unfortunately, her fluid balance was not monitored until yesterday. Her weight has decreased by 5 lb since 02/26/2022 (initial weight was in the ER and not consistent with following day). Strict I&Os while hospitalized. Daily weights. Low-sodium diet, less than 2000 mg daily. Heart failure program referral to assist in post discharge management while arranging outpatient cardiology follow-up in her local area. Continue carvedilol, Entresto, s pironolactone. Can titrate Entresto as an outpatient if able. Recommend SG LT 2 inhibitor if/when appropriate (not started now due to UTI). Recommend oral Lasix (20 to 40 mg daily) on discharge. Monitor renal function and electrolytes. Electrolyte replacement is being performed by primary hospitalist service. 2. Acute respiratory failure with hypoxia: Overall, symptoms have improved with diuretic therapy. Continue with plan as above. 3. Dyspnea with exertion: Likely related to heart failure but cannot exclude other etiologies as a contributing factor such as previous COVID pneumonia. She has PFTs ordered by her outpatient providers, that are currently pending. 4. CAD: Described as nonobstructive. No angina. Continue risk factor modification. Continue beta-vipin and high-intensity statin therapy. On aspirin. 5. Cardiomyopathy: Described EF in the past as low as 30%. Normal LV systolic function during this hospital stay on echo. Plan as above. 6. Bacteremia/UTI: E coli UTI but also 1 of 2 blood cultures growing E coli. Treatment as per primary hospitalist service. 7. Dyslipidemia: Continue high-intensity statin therapy. 8. Nausea/vomiting: Has known hiatal hernia. As per primary service. 9. Disposition: Cardiology will continue to follow while hospitalized. On discharge, she should follow-up with her primary local structural worker however heart failure program can continue to assist during the transition period. Patient care discussed with primary hospitalist, Dr. Ratliff. Admission and Anticipated Discharge Date Admission Date: February 25, 2022 Subjective Patient was seen earlier today. She felt much better. Her breathing has significantly improved but still has some dyspnea. She feels better now than she has in months. She denies chest pain, syncope, near-syncope, palpitations, edema, or bleeding. Review of systems: As above. She was alone in her hospital room. Physical Exam Physical Exam: Gen.: No acute distress. Alert. HEENT: Anicteric sclera. Neck: No JVD. No hepatic jugular reflux noted. Cardiac: PMI was nonpalpable. No ventricular heave. Regular. Normal S1-S2. No murmurs, rubs, or gallops. Pulmonary: Clear to auscultation bilaterally without wheezes, rales, or rhonchi. Abdomen: Soft, nontender, nondistended, with normoactive bowel sounds. No bruits noted. Extremities: 2+ radial pulses bilaterally. 2+ posterior tibialis pulses bilaterally. No significant pitting edema. No cyanosis. Psychiatric: Affect appears appropriate. Results & Data ([facility]) Vital Signs (Past 12 Hours) Vital Signs Temp Pulse Pulse Pulse Pulse Pulse Resp 02/28/22 15:46 61 02/28/22 15:04 88 72 60 02/28/22 14:59 36.7 C 62 18 02/28/22 10:57 36.7 C 69 20 02/28/22 10:15 02/28/22 07:21 61 02/28/22 07:15 36.8 C 60 18 Resp Resp Resp BP Pulse Ox Pulse Ox Pulse Ox 02/28/22 15:46 02/28/22 15:04 18 16 16 93 95 02/28/22 14:59 97/62 L 95 02/28/22 10:57 102/67 92 02/28/22 10:15 103/65 02/28/22 07:21 02/28/22 07:15 91/55 L 94 Pulse Ox 02/28/22 15:46 02/28/22 15:04 93 02/28/22 14:59 02/28/22 10:57 02/28/22 10:15 02/28/22 07:21 02/28/22 07:15 Intake & Output 02/26/22 02/27/22 02/28/22 03/01/22 06:59 06:59 06:59 06:59 Intake Total 2768.333 / 2768.333 1260 / 1260 1060 / 1060 955 / 955 Output Total 500 / 500 1051 / 1051 201 / 201 Balance 2268.333 / 2268.333 1259 / 1259 754 / 754 Weight 165 lb 9.074 oz 164 lb 3.91 oz 160 lb 14.999 oz Laboratory Results Laboratory Results - last 24 hr 02/28/22 07:50 Sodium 134 L Potassium 4.1 D Chloride 97 L Carbon Dioxide 31 Anion Gap 6 BUN 11 Creatinine 1.12 Est Cr Clr Drug Dosing 38.1 Est GFR ( Amer) 52.6 Est GFR (Non-Af Amer) 45.4 BUN/Creatinine Ratio 9.8 L Glucose 109 H Calcium 8.6 Diagnostic Findings Telemetry personally reviewed: Sinus rhythm. No arrhythmia. Medications Administered Current Inpatient Medications Acetaminophen (Acetaminophen 325 Mg Tab) 650 mg PO Q4H PRN PRN Reason: Pain or Fever Stop: 03/27/22 16:26 Albuterol (Albut/Ipratrop 3mg/0.5mg Neb 3 Ml Vial) 3 ml INH QIDR PRN; Protocol PRN Reason: Shortness Of Breath Or Wheezing Stop: 03/27/22 16:26 Aspirin (Aspirin 81 Mg Ectab) 81 mg PO DAILY@1400 [facility] Stop: 03/28/22 13:59 Last Admin: 02/28/22 13:36 Dose: 81 mg Documented by: Atorvastatin Calcium (Atorvastatin 40 Mg Tab) 80 mg PO DAILY@0200 [facility] Stop: 03/28/22 01:59 Last Admin: 02/28/22 01:09 Dose: 80 mg Documented by: Carvedilol (Carvedilol 25 Mg Tab) 25 mg PO Q12H [facility] Stop: 03/28/22 01:59 Last Admin: 02/28/22 13:36 Dose: 25 mg Documented by: Ciprofloxacin (Ciprofloxacin 500 Mg Tab) 500 mg PO BID [facility]; Protocol Stop: 03/10/22 08:59 Last Admin: 02/28/22 10:17 Dose: 500 mg Documented by: Ferrous Sulfate (Ferrous Sulfate 325 Mg Tab) 325 mg PO DAILY@1400 [facility] Stop: 03/28/22 13:59 Last Admin: 02/28/22 13:36 Dose: 325 mg Documented by: Folic Acid (Folic Acid 400 Mcg Tab) 800 mcg PO MoWeFr@1400 [facility] Stop: 03/29/22 13:59 Last Admin: 02/27/22 14:11 Dose: 800 mcg Documented by: Furosemide (Furosemide 20 Mg Tab) 20 mg PO QAM [facility] Stop: 03/30/22 08:59 Last Admin: 02/28/22 10:18 Dose: 20 mg Documented by: Lactobacillus Acidophilus (Advanced Probiotic 1250 Mg Capsule) 2 cap PO DAILY [facility] Stop: 03/30/22 15:59 Last Admin: 02/28/22 17:20 Dose: 2 cap Documented by: Multivitamins/Minerals (Cerovite Adv Formula Tab) 1 tab PO DAILY@1400 [facility]; Protocol Stop: 03/28/22 13:59 Last Admin: 02/28/22 13:36 Dose: 1 tab Documented by: Ondansetron HCl (Ondansetron Inj 2 Mg/Ml 2 Ml Vial) 4 mg IV Q6H PRN PRN Reason: Nausea Stop: 03/27/22 16:26 Pantoprazole Sodium (Pantoprazole 40 Mg Tab) 40 mg PO DAILY@1400 [facility]; Protocol Stop: 03/28/22 13:59 Last Admin: 02/28/22 13:36 Dose: 40 mg Documented by: Paroxetine HCl (Paroxetine Hcl 20 Mg Tab) 20 mg PO DAILY@0200 [facility] Stop: 03/28/22 01:59 Last Admin: 02/28/22 01:10 Dose: 20 mg Documented by: Polyethylene Glycol (Polyethylene (Miralax) 17 Gm Pack) 17 gm PO DAILY PRN PRN Reason: Constipation Stop: 03/27/22 16:26 Sacubitril/Valsartan (Valsartan/Sacubitril 26/24mg Tab) 1 tab PO Q12H [facility] Stop: 03/28/22 01:59 Last Admin: 02/28/22 13:36 Dose: 1 tab Documented by: Spironolactone (Spironolactone 25 Mg Tab) 25 mg PO DAILY@1400 [facility] Stop: 03/28/22 13:59 Last Admin: 02/28/22 13:36 Dose: 25 mg Documented by: Tolterodine Tartrate (Tolterodine Tartrate La 4 Mg Capcr) 4 mg PO DAILY@0200 [facility] Stop: 03/28/22 01:59 Last Admin: 02/28/22 01:09 Dose: 4 mg Documented by: PG Care Time/CCT Total # of Minutes Spent Total Time Spent with Patient: Total time spent is greater than 50% in coordination of care (as documented) at patient's floor/unit and/or counseling patient: Coding Level of Care Code 44740 Subseq Hosp Care Lvl 3 Diagnoses NYHA class 3 heart failure with preserved ejection fraction, with improvement of ejection fraction from prior measurement I50.30 Chronic heart failure with preserved ejection fraction I50.32 CAD (coronary artery disease) I25.10 Urinary tract infection N39.0 Hematuria presence: without hematuria Urinary tract infection type: site unspecified Bacteremia R78.81 Cardiomyopathy I42.9 Hyperlipidemia E78.5 MCHUGH (dyspnea on exertion) R06.00 Acute respiratory failure with hypoxia J96.01 (1) Urinary tract infection Hematuria presence: without hematuria Urinary tract infection type: site unspecified Qualified Code(s): N39.0 - Urinary tract infection, site not specified
== END 2022-02-28 19:40 | disposition home or self-care (01) | DRG 689 ==
LOC: ED 06:54 → 2W 12:41 → SUATTDRO 12:41 → 2W 16:06
DX: D64.9 Anemia, unspecified; I25.10 Atherosclerotic heart disease of native coronary artery without angina pectoris; F32.A Depression, unspecified; E78.00 Pure hypercholesterolemia, unspecified; Z88.1 Allergy status to other antibiotic agents; I11.0 Hypertensive heart disease with heart failure; E83.42 Hypomagnesemia; Z88.8 Allergy status to other drugs, medicaments and biological substances; Z90.49 Acquired absence of other specified parts of digestive tract; I42.9 Cardiomyopathy, unspecified; B96.20 Unspecified Escherichia coli [E. coli] as the cause of diseases classified elsewhere; Z86.16 Personal history of COVID-19; J96.01 Acute respiratory failure with hypoxia; K44.9 Diaphragmatic hernia without obstruction or gangrene; R78.81 Bacteremia; N39.0 Urinary tract infection, site not specified; Z90.710 Acquired absence of both cervix and uterus; E78.5 Hyperlipidemia, unspecified; K21.9 Gastro-esophageal reflux disease without esophagitis; E87.1 Hypo-osmolality and hyponatremia; Z88.0 Allergy status to penicillin; Z66 Do not resuscitate; I50.33 Acute on chronic diastolic (congestive) heart failure; Z79.82 Long term (current) use of aspirin; Z88.2 Allergy status to sulfonamides

== ENCOUNTER 2022-09-16 14:46 | Observation (INO) ==
--- NOTE | 2022-09-16 15:34 | XRay Report ---
TWO VIEW CHEST CLINICAL HISTORY: Dyspnea. Cough. History of Covid. FINDINGS: PA and lateral chest radiographs are compared to chest x-ray and chest CT dated 02/25/2022. T he heart is enlarged noting atherosclerotic calcification of the thoracic aorta. The pulmonary vascul ature is noncongested. Chronic interstitial thickening is similar to previous. The lungs and pleural spaces are clear noting bibasilar scarring/atelectasis. There is no pneumothorax. The skeletal struc tures are osteopenic. The bony thorax appears intact. Cholecystectomy clips are seen in the right upp er quadrant. IMPRESSION: Cardiomegaly with no active disease in the chest. ACT 112: Negative or not required by law. Electronically signed by: Ty Fung M.D. 09/16/2022 3:33 PM
[2022-09-16 16:09] LABS: Basophils # (auto) 0.03 K/uL (0-0.2); Basophils % (auto) 0.2 %; Eosinophils # (auto) 0.53 K/uL (0-0.50); Eosinophils % (auto) 4.2 %; Hematocrit (blood only) 34.8 % (34.1-44.9); Hemoglobin 11.5 g/dl (12.0-16.0); Immature Granulocytes # (auto) 0.18 K/uL (0.00-0.02); Immature Granulocytes % (auto) 1.4 %; Lymphocytes # (auto) 4.22 K/uL (1.2-3.4); Lymphocytes % (auto) 33.1 %; Mean Corpuscular Hemoglobin 32.3 pg (25.0-34.0); Mean Corpuscular Volume 97.8 fL (80.0-100.0); Mean Platelet Volume 10.2 fL (9.4-12.3); Monocytes # (auto) 0.93 K/uL (0.24-0.82); Monocytes % (auto) 7.3 %; Neutrophils # (auto) 6.86 K/uL (1.4-6.5); Neutrophils % (auto) 53.8 %; Platelet Count 195 K/uL (130-400); RDW Standard Deviation 46.1 fL (36.4-46.3); Red Blood Count 3.56 M/uL (3.93-5.22); White Blood Count 12.75 K/ul (4.8-10.8)
[2022-09-16 16:26] LABS: Partial Thromboplastin Ratio 0.8; Partial Thromboplastin Time 22.6 Seconds (21.0-31.0)
[2022-09-16 16:31] LABS: Albumin Globulin Ratio 1.3 (0.9-2); Albumin Level 3.2 gm/dl (3.4-5.0); BUN Creatinine Ratio 19.1 (10-20); Bilirubin,Total 0.5 mg/dl (0.2-1.0); Calcium 8.3 mg/dl (8.5-10.1); Creatinine Clr Calc Pharmacy 38.7 ml/min; Globulin 2.4 gm/dl (2.5-4.0); Magnesium 1.9 mg/dl (1.7-2.4); Potassium 3.7 mmol/L (3.5-5.1); Total Protein 5.6 gm/dl (6.0-8.3)
[2022-09-16 16:51] LABS: Influenza A virus by PCR Negative (Neg); Influenza B virus by PCR Negative (Neg); RSV by PCR Negative (Neg); SARS CoV2 RNA(COVID-19) Ceph NEGATIVE (Negative)
--- NOTE | 2022-09-16 17:18 | Emergency Department Note ---
History of Present Illness General Chief complaint: Shortness of Breath/Dyspnea Stated complaint: COUGH, SOB Time Seen by Provider: 09/16/22 16:53 Source: patient and family Mode of arrival: ambulatory Limitations: no limitations History of Present Illness Provider complaint: Shortness of breath, cough This is an 81-year-old female presents emergency department due to worsening cough and increased shortness of breath. Granddaughter with the patient is a nurse and helps provide additional history. Patient has had COVID 3 times in the last 2 years, and had no pulmonary history prior to that. Since that time s he has had increased difficulty breathing and has had frequent bouts of bronchitis. She has not seen pulmonology. She does have cardiac history and does follow with cardiology routinely. In the last 6 months she has had several episodes of "bronchitis" and was given outpatient antibiotics and steroids. She states symptoms began again on , and she was again started on steroids and azithromycin. She feels her symptoms are worsening on these instead of improving. She does have a pulse oximeter at home and checks her pulse ox frequently and states she is frequently seen a drop into the 80s. She does not wear home oxygen. She does have as needed nebulizers which she has been using without any significant improvement. She denies any coming chest pain, abdominal pain, nausea or vomiting, fevers or chills, diarrhea. She states cough is mostly nonproductive, but occasionally she can produce mucus. She denies any hemoptysis. Home Medications Medication Instructions Recorded Confirmed Type Xmbkrih-Ftyoglowu-Hhch-D3 3 tab PO QAM 02/25/22 09/16/22 History aspirin 81 mg tablet,delayed 81 mg PO QAM 02/25/22 09/16/22 History release atorvastatin 80 mg tablet 80 mg PO HS 02/25/22 09/16/22 History cyanocobalamin (vitamin B-12) 1,000 mcg subcut .EVERY 3 WEEKS 02/25/22 09/16/22 History 1,000 mcg/mL injection solution esomeprazole magnesium 40 mg 40 mg PO QAM 02/25/22 09/16/22 History capsule,delayed release ferrous sulfate 325 mg (65 mg 325 mg PO QAM 02/25/22 09/16/22 History iron) tablet (iron) ipratropium 0.5 mg-albuterol 3 mg 3 ml inhalation QID PRN Shortness 02/25/22 09/16/22 History (2.5 mg base)/3 mL nebulization Of Breath Or Wheezing soln naproxen 500 mg tablet 500 mg PO DAILY PRN Back Pain 02/25/22 09/16/22 History omega 1-jgo-kyt-fish oil 1,000 mg 1 cap PO HS 02/25/22 09/16/22 History (120 mg-180 mg) capsule (Fish Oil) paroxetine HCl 20 mg tablet 20 mg PO HS 02/25/22 09/16/22 History tolterodine 4 mg capsule,extended 4 mg PO HS 02/25/22 09/16/22 History release 24 hr vitamins A,C,L-ykuh-hzqwzh 2,148 1 tab PO BID 02/25/22 09/16/22 History mcg-113 mg-45 mg-17.4 mg tablet (PreserVision AREDS) carvedilol 25 mg tablet 25 mg PO BID 04/04/22 09/16/22 History sacubitril 24 mg-valsartan 26 mg 1 tab PO BID 04/04/22 09/16/22 History tablet (Entresto) benzonatate 100 mg capsule 100 mg PO TID PRN Cough 09/16/22 09/16/22 History folic acid 1 mg tablet 1 mg PO 3XWK 09/16/22 09/16/22 History furosemide 40 mg tablet (Lasix) 20 mg PO MOWEFR PRN weight gain 09/16/22 09/16/22 History Allergies Allergy/AdvReac Type Severity Reaction Status Date / Time amoxicillin [From Augmentin] Allergy Severe Anaphylaxis Unverified 02/25/22 08:50 cefuroxime Allergy Severe Anaphylaxis Unverified 02/25/22 08:50 clarithromycin Allergy Severe Anaphylaxis Unverified 02/25/22 08:50 clavulanic acid Allergy Severe Anaphylaxis Unverified 02/25/22 08:50 [From Augmentin] erythromycin base Allergy Severe Anaphylaxis Unverified 02/25/22 08:50 Penicillins Allergy Severe Anaphylaxis Unverified 02/25/22 08:50 phenobarbital Allergy Severe Anaphylaxis Unverified 02/25/22 08:50 Past Med/Surg History Medical History Anemia CAD (coronary artery disease) Cardiomyopathy Hiatal hernia High cholesterol Spinal stenosis Urinary incontinence Valvular heart disease Surgical History H/O: hysterectomy History of appendectomy History of cholecystectomy Social History Smoking Status: Never smoker Hx Alcohol Use: No Hx Substance Use: No Preferred Language: [place] Communication Ability: Effective Armature Winder Repair Required: No Beliefs That Will Affect Care: None marital status: / Current Living Situation: Alone How many Children do You have: 4 Feels Safe at Home: Yes Assistive Devices: Cane, Denture - Upper, Denture - Lower, Glasses, Hearing Aid - Bilateral and Walker Review of Systems A total of 10 systems reviewed and were otherwise negative All systems reviewed & are unremarkable except as noted in HPI & below Physical Exam Vital Signs Vital Signs - 24 hr 09/16/22 15:04 09/16/22 15:04 Temperature 36.9 C Temperature Source Oral Pulse Rate 57 L Respiratory Rate 18 Respiratory Effort / Characteristics Non-Labored Spontaneous Respiratory Depth Normal Respiratory Pattern Regular Blood Pressure 113/64 Blood Pressure Mean 80 Pulse Oximetry 96 Oxygen Delivery Method Room Air Room Air Sepsis Recent Fever Within 48 Hours No Sepsis New/Unexplained Change in Mental Status No Sepsis Action Taken by Nursing No Action Required GENERAL: alert, well appearing, well nourished, no distress, non-toxic EYE EXAM: normal conjunctiva, PERRL and EOM's grossly intact OROPHARYNX: no exudate, no erythema, lips, buccal mucosa, and tongue normal and mucous membranes are moist NECK: supple, no nuchal rigidity, no adenopathy, non-tender LUNGS: Coarse bilaterally to auscultation. Normal chest wall mechanics, no r/r, faint expiratory wheeze noted in right upper lobe posteriorly, no tachypnea, no retractions, frequent coarse cough noted during exam HEART: no murmurs, S1 normal and S2 normal ABDOMEN: abdomen soft, non-tender, normo-active bowel sounds, no masses, no rebound or guarding. BACK: Back is symmetrical on inspection and there is no deformity, no midline tenderness, no CVA tenderness. SKIN: no rashes and no bruising UPPER EXTREMITIES: upper extremities are grossly normal. FROM, nml pulses b/l. LOWER EXTREMITIES: No pitting edema. FROM, nml pulses b/l. NEURO EXAM: Normal sensorium, cranial nerves II-XII grossly intact, normal speech, no gross weakness of arms, no gross weakness of legs. Gross sensation intact. Course Course 1834: Patient and granddaughter updated on CT results. Administered Medications Albuterol (Albut/Ipratrop 3mg/0.5mg Neb 3 Ml Vial) 3 ml NEB Q4R YARELIS; Protocol Stop: 10/16/22 22:59 Last Admin: 09/17/22 20:36 Dose: 3 ml Documented By: Admin: 09/17/22 15:57 Dose: 3 ml Documented By: Admin: 09/17/22 10:31 Dose: 3 ml Documented By: Admin: 09/17/22 05:50 Dose: 3 ml Documented By: Admin: 09/17/22 02:42 Dose: 3 ml Documented By: Admin: 09/16/22 23:41 Dose: 3 ml Documented By: KEYONA Aspirin (Aspirin 81 Mg Ectab) 81 mg PO QAM [facility] Stop: 10/17/22 08:59 Last Admin: 09/17/22 10:14 Dose: 81 mg Documented By: TAYLOR Atorvastatin Calcium (Atorvastatin 40 Mg Tab) 80 mg PO HS [facility] Stop: 10/16/22 22:14 Last Admin: 09/17/22 20:14 Dose: 80 mg Documented By: Admin: 09/16/22 23:38 Dose: 80 mg Documented By: KEYONA Carvedilol (Carvedilol 25 Mg Tab) 25 mg PO BID [facility] Stop: 10/16/22 22:08 Last Admin: 09/17/22 20:15 Dose: 25 mg Documented By: Admin: 09/17/22 10:13 Dose: 25 mg Documented By: Admin: 09/16/22 23:38 Dose: 25 mg Documented By: KEYONA Fluticasone/Vilanterol (Fluticasone/Vilanterol 100/25mcg 14 Puffs/Inhaler) 1 puffs INH DAILY [facility] Stop: 10/17/22 13:44 Last Admin: 09/17/22 16:24 Dose: 1 puffs Documented By: TAYLRO Furosemide (Furosemide 20 Mg Tab) 20 mg PO MOWEFR [facility] Stop: 10/16/22 22:14 Last Admin: 09/16/22 23:28 Dose: Not Given Documented By: KEYONA Heparin Sodium (Porcine) (Heparin Sod 5,000 Unit/0.5 Ml Vial) 5,000 units SQ Q12 [facility] Stop: 10/16/22 22:14 Last Admin: 09/17/22 20:15 Dose: Not Given Documented By: Admin: 09/17/22 10:13 Dose: Not Given Documented By: Admin: 09/16/22 23:35 Dose: Not Given Documented By: KEYONA Paroxetine HCl (Paroxetine Hcl 20 Mg Tab) 20 mg PO HS [facility] Stop: 10/16/22 22:19 Last Admin: 09/17/22 20:15 Dose: 20 mg Documented By: Admin: 09/16/22 23:39 Dose: 20 mg Documented By: KEYONA Prednisone (Prednisone 20 Mg Tab) 20 mg PO DAILY [facility] Stop: 10/17/22 08:59 Last Admin: 09/17/22 10:13 Dose: 20 mg Documented By: TAYLOR Sacubitril/Valsartan (Valsartan/Sacubitril 26/24mg Tab) 1 tab PO BID [facility] Stop: 10/16/22 22:08 Last Admin: 09/17/22 20:16 Dose: 1 tab Documented By: Admin: 09/17/22 10:13 Dose: 1 tab Documented By: Admin: 09/16/22 23:38 Dose: 1 tab Documented By: KEYONA Discontinued Medications Furosemide (Furosemide Inj 20 Mg/2 Ml Vial) 20 mg IV ONE ONE Stop: 09/16/22 22:10 Last Admin: 09/16/22 23:39 Dose: 20 mg Documented By: KEYONA Levofloxacin/Dextrose (Levaquin/D5w) 750 mg in 150 mls @ 100 mls/hr IV NOW STA Stop: 09/16/22 20:13 Last Infusion: 09/16/22 22:50 Dose: 0 mls/hr Documented By: Admin: 09/16/22 21:03 Dose: 100 mls/hr Documented By: LUCIE Ioversol (Optiray 350 100ml) 85 ml IV ONCE ONE Stop: 09/16/22 17:51 Last Admin: 09/16/22 17:53 Dose: 85 ml Documented By: TAURUS Methylprednisolone (Methylprednisolone 40 Mg/Ml Vial) 40 mg IV NOW STA Stop: 09/16/22 18:43 Last Admin: 09/16/22 20:43 Dose: 40 mg Documented By: LUCIE Medical Decision Making Differential Diagnosis Differential diagnoses includes but is not limited to pneumonia, bronchitis, COPD/Asthma exacerbation, pneumothorax, pulmonary embolism, congestive heart failure, acute coronary syndrome Medical Records Attestation: I reviewed the patient's medical records. Home Medications Current Medication List: was personally reviewed by me Laboratory Data Attestation: I reviewed the patient's lab results. Result diagrams: 09/17/22 04:42 09/17/22 04:42 Lab Results 09/16/22 09/16/22 09/16/22 Range/Units 15:52 15:52 15:52 WBC 12.75 H (4.8-10.8) K/ul RBC 3.56 L (3.93-5.22) M/uL Hgb 11.5 L (12.0-16.0) g/dl Hct 34.8 (34.1-44.9) % MCV 97.8 (80.0-100.0) fL MCH 32.3 (25.0-34.0) pg MCHC 33.0 (32.0-36.0) g/dL RDW Std Deviation 46.1 (36.4-46.3) fL RDW Coeff of [place] 13.0 (11.5-14.5) % Plt Count 195 (130-400) K/uL MPV 10.2 (9.4-12.3) fL Immature Gran % (Auto) 1.4 % Neut % (Auto) 53.8 % Lymph % (Auto) 33.1 % [place] % (Auto) 7.3 % Eos % (Auto) 4.2 % Baso % (Auto) 0.2 % Neut # (Auto) 6.86 H (1.4-6.5) K/uL Lymph # (Auto) 4.22 H (1.2-3.4) K/uL [place] # (Auto) 0.93 H (0.24-0.82) K/uL Eos # (Auto) 0.53 H (0-0.50) K/uL Baso # (Auto) 0.03 (0-0.2) K/uL Immature Gran # (Auto) 0.18 H (0.00-0.02) K/uL PT 11.0 (9.0-12.0) Seconds INR 1.0 (0.9-1.1) APTT 22.6 (21.0-31.0) Seconds PTT Ratio 0.8 Sodium 136 (136-145) mmol/L Potassium 3.7 (3.5-5.1) mmol/L Chloride 100 (98-107) mmol/L Carbon Dioxide 29 (21-32) mmol/L Anion Gap 7 (3-11) BUN 22 (6-23) mg/dl Creatinine 1.15 (0.6-1.2) mg/dl Est Cr Clr Drug Dosing 38.7 ml/min Est GFR ( Amer) 51.0 ml/min Est GFR (Non-Af Amer) 44.0 ml/min BUN/Creatinine Ratio 19.1 (10-20) Glucose 114 H (70-99(Fasting)) mg/dl Calcium 8.3 L (8.5-10.1) mg/dl Magnesium 1.9 (1.7-2.4) mg/dl Total Bilirubin 0.5 (0.2-1.0) mg/dl AST 16 (13-39) U/L ALT 18 (7-52) U/L Alkaline Phosphatase 92 (34-104) U/L Troponin I High Sens (0-14) pg/ml Total Protein 5.6 L (6.0-8.3) gm/dl Albumin 3.2 L (3.4-5.0) gm/dl Globulin 2.4 L (2.5-4.0) gm/dl Albumin/Globulin Ratio 1.3 (0.9-2) Procalcitonin (0-0.5) ng/ml Adenovirus (PCR) (NotDetected) B. pertussis DNA (PCR) (NotDetected) B.parapertussis DNA PCR (NotDetected) C. pneumoniae DNA (PCR) (NotDetected) Coronavirus OC43 (PCR) (NotDetected) Coronavirus HKU1 (PCR) (NotDetected) Coronavirus 229E (PCR) (NotDetected) SARS-CoV-2 (PCR) (Negative) Coronavirus NL63 (PCR) (NotDetected) Human Metapneumovir PCR (NotDetected) Influenza Type A (PCR) (Neg) Influenza Type B (PCR) (Neg) M. pneumoniae (PCR) (NotDetected) Parainfluenza 1 (PCR) (NotDetected) Parainfluenza 2 (PCR) (NotDetected) Parainfluenza 3 (PCR) (NotDetected) Parainfluenza 4 (PCR) (NotDetected) RSV (RT-PCR) (Neg) RSV (PCR) (NotDetected) Entero/Rhino (PCR) (NotDetected) 09/16/22 09/16/22 09/16/22 Range/Units 15:52 15:52 15:52 WBC (4.8-10.8) K/ul RBC (3.93-5.22) M/uL Hgb (12.0-16.0) g/dl Hct (34.1-44.9) % MCV (80.0-100.0) fL MCH (25.0-34.0) pg MCHC (32.0-36.0) g/dL RDW Std Deviation (36.4-46.3) fL RDW Coeff of [place] (11.5-14.5) % Plt Count (130-400) K/uL MPV (9.4-12.3) fL Immature Gran % (Auto) % Neut % (Auto) % Lymph % (Auto) % [place] % (Auto) % Eos % (Auto) % Baso % (Auto) % Neut # (Auto) (1.4-6.5) K/uL Lymph # (Auto) (1.2-3.4) K/uL [place] # (Auto) (0.24-0.82) K/uL Eos # (Auto) (0-0.50) K/uL Baso # (Auto) (0-0.2) K/uL Immature Gran # (Auto) (0.00-0.02) K/uL PT (9.0-12.0) Seconds INR (0.9-1.1) APTT (21.0-31.0) Seconds PTT Ratio Sodium (136-145) mmol/L Potassium (3.5-5.1) mmol/L Chloride (98-107) mmol/L Carbon Dioxide (21-32) mmol/L Anion Gap (3-11) BUN (6-23) mg/dl Creatinine (0.6-1.2) mg/dl Est Cr Clr Drug Dosing ml/min Est GFR ( Amer) ml/min Est GFR (Non-Af Amer) ml/min BUN/Creatinine Ratio (10-20) Glucose (70-99(Fasting)) mg/dl Calcium (8.5-10.1) mg/dl Magnesium (1.7-2.4) mg/dl Total Bilirubin (0.2-1.0) mg/dl AST (13-39) U/L ALT (7-52) U/L Alkaline Phosphatase (34-104) U/L Troponin I High Sens 11.6 (0-14) pg/ml Total Protein (6.0-8.3) gm/dl Albumin (3.4-5.0) gm/dl Globulin (2.5-4.0) gm/dl Albumin/Globulin Ratio (0.9-2) Procalcitonin (0-0.5) ng/ml Adenovirus (PCR) Not Detected (NotDetected) B. pertussis DNA (PCR) Not Detected (NotDetected) B.parapertussis DNA PCR Not Detected (NotDetected) C. pneumoniae DNA (PCR) Not Detected (NotDetected) Coronavirus OC43 (PCR) Not Detected (NotDetected) Coronavirus HKU1 (PCR) Not Detected (NotDetected) Coronavirus 229E (PCR) Not Detected (NotDetected) SARS-CoV-2 (PCR) NEGATIVE Not Detected (Negative) Coronavirus NL63 (PCR) Not Detected (NotDetected) Human Metapneumovir PCR Not Detected (NotDetected) Influenza Type A (PCR) Negative Not Detected (Neg) Influenza Type B (PCR) Negative Not Detected (Neg) M. pneumoniae (PCR) Not Detected (NotDetected) Parainfluenza 1 (PCR) Not Detected (NotDetected) Parainfluenza 2 (PCR) Not Detected (NotDetected) Parainfluenza 3 (PCR) Not Detected (NotDetected) Parainfluenza 4 (PCR) Not Detected (NotDetected) RSV (RT-PCR) Negative (Neg) RSV (PCR) Not Detected (NotDetected) Entero/Rhino (PCR) DETECTED A* (NotDetected) 09/16/22 Range/Units 15:52 WBC (4.8-10.8) K/ul RBC (3.93-5.22) M/uL Hgb (12.0-16.0) g/dl Hct (34.1-44.9) % MCV (80.0-100.0) fL MCH (25.0-34.0) pg MCHC (32.0-36.0) g/dL RDW Std Deviation (36.4-46.3) fL RDW Coeff of [place] (11.5-14.5) % Plt Count (130-400) K/uL MPV (9.4-12.3) fL Immature Gran % (Auto) % Neut % (Auto) % Lymph % (Auto) % [place] % (Auto) % Eos % (Auto) % Baso % (Auto) % Neut # (Auto) (1.4-6.5) K/uL Lymph # (Auto) (1.2-3.4) K/uL [place] # (Auto) (0.24-0.82) K/uL Eos # (Auto) (0-0.50) K/uL Baso # (Auto) (0-0.2) K/uL Immature Gran # (Auto) (0.00-0.02) K/uL PT (9.0-12.0) Seconds INR (0.9-1.1) APTT (21.0-31.0) Seconds PTT Ratio Sodium (136-145) mmol/L Potassium (3.5-5.1) mmol/L Chloride (98-107) mmol/L Carbon Dioxide (21-32) mmol/L Anion Gap (3-11) BUN (6-23) mg/dl Creatinine (0.6-1.2) mg/dl Est Cr Clr Drug Dosing ml/min Est GFR ( Amer) ml/min Est GFR (Non-Af Amer) ml/min BUN/Creatinine Ratio (10-20) Glucose (70-99(Fasting)) mg/dl Calcium (8.5-10.1) mg/dl Magnesium (1.7-2.4) mg/dl Total Bilirubin (0.2-1.0) mg/dl AST (13-39) U/L ALT (7-52) U/L Alkaline Phosphatase (34-104) U/L Troponin I High Sens (0-14) pg/ml Total Protein (6.0-8.3) gm/dl Albumin (3.4-5.0) gm/dl Globulin (2.5-4.0) gm/dl Albumin/Globulin Ratio (0.9-2) Procalcitonin < 0.05 (0-0.5) ng/ml Adenovirus (PCR) (NotDetected) B. pertussis DNA (PCR) (NotDetected) B.parapertussis DNA PCR (NotDetected) C. pneumoniae DNA (PCR) (NotDetected) Coronavirus OC43 (PCR) (NotDetected) Coronavirus HKU1 (PCR) (NotDetected) Coronavirus 229E (PCR) (NotDetected) SARS-CoV-2 (PCR) (Negative) Coronavirus NL63 (PCR) (NotDetected) Human Metapneumovir PCR (NotDetected) Influenza Type A (PCR) (Neg) Influenza Type B (PCR) (Neg) M. pneumoniae (PCR) (NotDetected) Parainfluenza 1 (PCR) (NotDetected) Parainfluenza 2 (PCR) (NotDetected) Parainfluenza 3 (PCR) (NotDetected) Parainfluenza 4 (PCR) (NotDetected) RSV (RT-PCR) (Neg) RSV (PCR) (NotDetected) Entero/Rhino (PCR) (NotDetected) Imaging Data Radiologist's Impression: Chest X-Ray 09/16/22 15:08 TWO VIEW CHEST CLINICAL HISTORY: Dyspnea. Cough. History of Covid. FINDINGS: PA and lateral chest radiographs are compared to chest x-ray and chest CT dated 02/25/2022. The heart is enlarged noting atherosclerotic calcification of the thoracic aorta. The pulmonary vasculature is noncongested. Chronic interstitial thickening is similar to previous. The lungs and pleural spaces are clear noting bibasilar scarring/atelectasis. There is no pneumothorax. The skeletal structures are osteopenic. The bony thorax appears intact. Cholecystectomy clips are seen in the right upper quadrant. IMPRESSION: Cardiomegaly with no active disease in the chest. ACT 112: Negative or not required by law. Electronically signed by: Ty Fung M.D. 09/16/2022 3:[address] 09/16/22 17:04 CT SCAN OF THE CHEST WITH IV CONTRAST CLINICAL HISTORY: Atypical chest pain. Dyspnea. COMPARISON STUDY: Chest x-ray dated 09/16/2022. Chest CT dated 02/25/2022. TECHNIQUE: Following the IV administration of 85 cc of Optiray 350, CT scan of the thorax was performed from the thoracic inlet to the upper abdomen. Images a re reviewed in the axial, sagittal, and coronal planes. IV contrast was administered without complication. A dose lowering technique was utilized adhering to the principles of ALARA. CT DOSE: 328.38 mGy.cm FINDINGS: Thyroid: Imaged portions of the thyroid gland are normal in size and attenuation. Thoracic aorta: There is mild atherosclerotic calcification of the thoracic aorta, which is normal in caliber and demonstrates standard 3-vessel arch anatomy. No dissection is seen. Pulmonary vasculature: The pulmonary trunk is normal in caliber. There are no filling defects identified in the central pulmonary vessels to indicate pulmonary embolus. Note that this examination was not protocoled for evaluation of the pulmonary arteries. Heart: The heart is enlarged note a small pericardial effusion. Lungs and pleural spaces: There are trace pleural effusions with dependent atelectasis. Minimal groundglass opacities are seen at the medial right lung base on image #226. The trachea and central airways are clear. Diffuse peribronchial thickening is observed. Mediastinum: There is no mediastinal lymphadenopathy. Tamie: Clear. Axillae: There is no axillary lymphadenopathy. Upper abdomen: There is a large hiatal hernia. Partially visualized upper abdominal viscera is otherwise grossly unremarkable. Skeletal structures: The skeletal structures are osteopenic. Degenerative change and hyperkyphosis is noted in the thoracic spine. No lytic or blastic bony lesions are seen. Arthritic change is seen in the shoulders. IMPRESSION: 1. Cardiomegaly and trace pleural effusions. 2. Large hiatal hernia. 3. There is diffuse peribronchial thickening which suggests bronchitis/reactive airway disease. Clinical correlation will be required. 4. Minimal groundglass opacities at the right lung base may represent a minimal pneumonitis. 5. Additional findings as above. ACT 112: Negative or not required by law. Electronically signed by: Ty Fung M.D. 09/16/2022 6:20 PM ECG Data Attestation: I personally reviewed and interpreted this ECG as follows: Indication: + SOB/dyspnea Rate (beats per minute): 57 Rhythm: + sinus bradycardia ECG Intervals/blocks: + Left bundle branch block and + Normal QT ECG [place]: + Normal ECG ST segments: + Nonspecific ST abnormalities MDM Narrative An order was placed for continuous cardiac monitoring. The monitor shows a rate of __86_ with _normal sinus__ rhythm. CURB 65 score moderate risk This is an 81-year-old female presents emergency department due to concern for worsening shortness of breath and hypoxia noted on home pulse oximeter in the 80s. Patient is already on azithromycin and steroids and does not feel any improvement after 4 days. Patient has had a course of recurrent episodes of bronchitis in the last 6 months. No prior history of asthma or COPD, no history of tobacco abuse. Patient has not yet seen pulmonology, family concerned as she lives by herself with worsening shortness of breath and hypoxia as granddaughter is a nurse and son a retired respiratory therapist. Labs drawn and sent, chest x-ray performed, evaluated patient in a triage waiting room area as she presented on day of high volume and acuity and there were no available regular patient rooms. Case discussed with hospitalist for additional evaluation and management. Patient started on a different IV antibiotic here after CT was discussed, as well as given a dose of IV Solu-Medrol. COVID swab negative. Impression & Plan Dyspnea, Failure of outpatient treatment, Hypoxia Discharge Plan Visit Data Chief Complaint: Shortness of Breath/Dyspnea Stated Complaint: COUGH, SOB ED Provider: Nilsa Max Discharge Problem: Dyspnea, Failure of outpatient treatment, Hypoxia Patient Disposition: Admitted As Inpatient Condition: Good Discharge Instructions Interventions: ED Discharge Assessment Last Done: 09/16/22 22:09
[2022-09-16] MEDS ORDERED: OPTIRAY 350 100ml IV ONE (17:50)
--- NOTE | 2022-09-16 18:22 | CT Scan Report ---
CT SCAN OF THE CHEST WITH IV CONTRAST CLINICAL HISTORY: Atypical chest pain. Dyspnea. COMPARISON STUDY: Chest x-ray dated 09/16/2022. Chest CT dated 02/25/2022. TECHNIQUE: Following the IV administration of 85 cc of Optiray 350, CT scan of the thorax was perform ed from the thoracic inlet to the upper abdomen. Images are reviewed in the axial, sagittal, and mark nal planes. IV contrast was administered without complication. A dose lowering technique was utilize d adhering to the principles of ALARA. CT DOSE: 328.38 mGy.cm FINDINGS: Thyroid: Imaged portions of the thyroid gland are normal in size and attenuation. Thoracic aorta: There is mild atherosclerotic calcification of the thoracic aorta, which is normal in caliber and demonstrates standard 3-vessel arch anatomy. No dissection is seen. Pulmonary vasculature: The pulmonary trunk is normal in caliber. There are no filling defects identif ied in the central pulmonary vessels to indicate pulmonary embolus. Note that this examination was no t protocoled for evaluation of the pulmonary arteries. Heart: The heart is enlarged note a small pericardial effusion. Lungs and pleural spaces: There are trace pleural effusions with dependent atelectasis. Minimal groun dglass opacities are seen at the medial right lung base on image #226. The trachea and central airway s are clear. Diffuse peribronchial thickening is observed. Mediastinum: There is no mediastinal lymphadenopathy. [place]: Clear. Axillae: There is no axillary lymphadenopathy. Upper abdomen: There is a large hiatal hernia. Partially visualized upper abdominal viscera is otherw ise grossly unremarkable. Skeletal structures: The skeletal structures are osteopenic. Degenerative change and hyperkyphosis is noted in the thoracic spine. No lytic or blastic bony lesions are seen. Arthritic change is seen in the shoulders. IMPRESSION: 1. Cardiomegaly and trace pleural effusions. 2. Large hiatal hernia. 3. There is diffuse peribronchial thickening which suggests bronchitis/reactive airway disease. Clini narcisa correlation will be required. 4. Minimal groundglass opacities at the right lung base may represent a minimal pneumonitis. 5. Additional findings as above. ACT 112: Negative or not required by law. Electronically signed by: Ty Fung M.D. 09/16/2022 6:20 PM
[2022-09-16] MEDS ORDERED: levoFLOXacin/D5W 750 MG/150 ML BAG IV STA (18:44)
--- NOTE | 2022-09-16 20:02 | History & Physical Report ---
Date of Service September 16, 2022 Assessment & Plan (1) Dyspnea: Plan: Waxing and waning course over 6 months. Responds temporarily to Z-pack +/- steroids. I see 1 of 2 most likely possibilities here: 1) Very mild CHF causing only cough and subjective shortness of breath as symptom. 2) Cough-variant asthma - Will give Lasix 20 mg IV x 1 now and monitor weights and I&Os. Low-sodium diet. Will get limited echo to ensure no change from 02/2022 and no return of pericardial effusion. - Will get respiratory BioFire. Could this be some sort of ongoing, low-level atypical bronchopneumonia that improves with a Z-pack but is not eliminated? Will start levofloxacin, scheduled DuoNebs, steroids. At this point, not sure pulmonary would have much to add, but could consider consult in the morning if no improvement. Really needs PFTs as outpatient once acute issue has resolved, but granddaughter reports she has not been well long enough to get this done. (2) Chronic heart failure with preserved ejection fraction: Plan: Mild exacerbation in 02/2022. Followed with Josephine Cowan x 2 visits, but has not since then. Dry weight seems to have been ~73 kg in February, but now weighed at 80 kg this evening. - Lasix and echo as above - Continue beta-vpiin, Entresto, atorvastatin (3) CAD (coronary artery disease): Plan: Described as non-occlusive in cardiology note in February. - Continue ASA, atorvastatin (4) DVT prophylaxis: Plan: Heparin 5,000 units SQ BID FULL CODE - Per patient with granddaughter present. History of Present Illness Primary Care Provider: Hunter Garcia MD 81yo F w/ hx of cardiomyopathy and HFrEF who presents with shortness of breath and cough. The patient was in the hospital for a mild CHF exacerbation in 02/2022. She was gently diuresed, and then was discharged after 3-4 days. Per granddaughter, she actually developed the cough on the day of discharge, and then had a cough with some shortness of breath for about 1 month after requiring two rounds of azithromycin and one of steroids. She was fine for about 1 month, then developed the cough again, again requiring azithromycin. Since then, she has been going back on azithromycin, getting well for a shorter and shorter duration, then requiring more steroid and azithromycin. Her granddaughter thinks she has been on a Z-pack at least 4 times since this summer. Today, she presents with continued cough and shortness of breath. At home, she is occasionally hypoxic on a home meter, though today she is 96% on room air. She reports that she was quite good at weighing herself after her discharge from the hospital, but at this point, she does not weigh herself frequently. Allergies Allergy/AdvReac Type Severity Reaction Status Date / Time amoxicillin [From Augmentin] Allergy Severe Anaphylaxis Unverified 02/25/22 08:50 cefuroxime Allergy Severe Anaphylaxis Unverified 02/25/22 08:50 clarithromycin Allergy Severe Anaphylaxis Unverified 02/25/22 08:50 clavulanic acid Allergy Severe Anaphylaxis Unverified 02/25/22 08:50 [From Augmentin] erythromycin base Allergy Severe Anaphylaxis Unverified 02/25/22 08:50 Penicillins Allergy Severe Anaphylaxis Unverified 02/25/22 08:50 phenobarbital Allergy Severe Anaphylaxis Unverified 02/25/22 08:50 Home Medications Medication Instructions Recorded Confirmed Type Syiypnn-Uiockzakq-Pkvz-D3 3 tab PO QAM 02/25/22 02/25/22 History aspirin 81 mg tablet,delayed 81 mg PO QAM 02/25/22 02/25/22 History release atorvastatin 80 mg tablet 80 mg PO HS 02/25/22 02/25/22 History cyanocobalamin (vitamin B-12) 1,000 mcg subcut .EVERY 3 WEEKS 02/25/22 02/25/22 History 1,000 mcg/mL injection solution esomeprazole magnesium 40 mg 40 mg PO QAM 02/25/22 02/25/22 History capsule,delayed release ferrous sulfate 325 mg (65 mg 325 mg PO QAM 02/25/22 02/25/22 History iron) tablet (iron) folic acid 800 mcg tablet 0.8 mg PO 3XWK 02/25/22 02/25/22 History ipratropium 0.5 mg-albuterol 3 mg 3 ml inhalation QID PRN Shortness 02/25/22 02/25/22 History (2.5 mg base)/3 mL nebulization Of Breath Or Wheezing soln naproxen 500 mg tablet 500 mg PO DAILY PRN Back Pain 02/25/22 02/25/22 History omega 5-rvl-lhb-fish oil 1,000 mg 1 cap PO QAM 02/25/22 02/25/22 History (120 mg-180 mg) capsule (Fish Oil) paroxetine HCl 20 mg tablet 20 mg PO HS 02/25/22 02/25/22 History tolterodine 4 mg capsule,extended 4 mg PO HS 02/25/22 02/25/22 History release 24 hr vitamins A,C,A-terj-lsqoii 2,148 2 tab PO HS 02/25/22 02/25/22 History mcg-113 mg-45 mg-17.4 mg tablet (PreserVision AREDS) fluticasone propionate 50 2 spray intranasal DAILY #16 grams 02/28/22 Rx mcg/actuation nasal spray,suspension (Flonase Allergy Relief) carvedilol 25 mg tablet 25 mg PO BID 04/04/22 History sacubitril 24 mg-valsartan 26 mg 1 tab PO BID 04/04/22 History tablet (Entresto) furosemide 40 mg tablet (Lasix) 20 mg PO MOWEFR PRN weight gain 09/16/22 History Past Med/Surg History Medical History Anemia CAD (coronary artery disease) Cardiomyopathy Hiatal hernia High cholesterol Spinal stenosis Urinary incontinence Valvular heart disease Surgical History H/O: hysterectomy History of appendectomy History of cholecystectomy Social History Smoking Status: Never smoker Hx Alcohol Use: No Hx Substance Use: No Preferred Language: Danish Communication Ability: Effective Patient Registration Supervisor Required: No Beliefs That Will Affect Care: None marital status: / Current Living Situation: Alone How many Children do You have: 4 Feels Safe at Home: Yes Assistive Devices: Oxygen - at Night Review of Systems Review of Systems: All systems reviewed & are unremarkable except as noted in HPI & below Physical Exam Constitutional: WD/WN, vitals as above Eyes: EOM intact bilaterally; no conjunctival abnormality ENMT: external ear and nose normal, oropharynx normal Neck: trachea midline, no thyromegaly normal visual inspection Respiratory: + cough; no respiratory distress, no labored breathing and not tachypneic Auscultation: + wheezes (Mild end-expiratory); no rhonchi Cardiovascular: RRR, no murmur, no edema Gastrointestinal (Abdomen): Inspection/Auscultation: abdomen normal to inspection; abdomen not distended Musculoskeletal: no cyanosis or clubbing, extremities motor strength 5/5 Skin: no rashes, warm and dry Neurologic: moves all extremities and awake Psychiatric: Orientation: alert, oriented to person and cooperative Results & Data Results & Data ([facility]) Vital Signs (Past 12 Hours) Vital Signs Temp Pulse Resp BP Pulse Ox O2 Del Method 09/16/22 15:04 Room Air 09/16/22 15:04 36.9 C 57 L 18 113/64 96 Room Air Code Status & VTE Plan VTE Prophylaxis Plan VTE Prophylaxis will be ordered: Yes PG Care Time/CCT Total # of Minutes Spent Total Time Spent with Patient: Total time spent is greater than 50% in coordination of care (as documented) at patient's floor/unit and/or counseling patient: Coding Level of Care Code 94331 Initial Inpt Care Lvl 3 Diagnoses Dyspnea R06.00 Chronic heart failure with preserved ejection fraction I50.32 CAD (coronary artery disease) I25.10 DVT prophylaxis Z29.9
[2022-09-16] MEDS ORDERED: ACETAMINOPHEN 325 MG TAB PO PRN (22:09)
[2022-09-16] MEDS ORDERED: ONDANSETRON INJ 2 MG/ML 2 ML VIAL IV PRN (22:09)
[2022-09-16] MEDS ORDERED: FUROSEMIDE INJ 20 MG/2 ML VIAL IV ONE (22:09)
[2022-09-16] MEDS ORDERED: FUROSEMIDE 20 MG TAB PO SCH (22:15)
[2022-09-16 23:28] LABS: Adenovirus PCR Not Detected (NotDetected); Bordetella parapertussis PCR Not Detected (NotDetected); Bordetella pertussis PCR Not Detected (NotDetected); Chlamydia pneumoniae PCR Not Detected (NotDetected); Coronavirus 229E PCR Not Detected (NotDetected); Coronavirus CoV-2 (COVID19)PCR Not Detected (NotDetected); Coronavirus HKU1 PCR Not Detected (NotDetected); Coronavirus NL63 PCR Not Detected (NotDetected); Coronavirus OC43PCR Not Detected (NotDetected); Human Metapneumovirus PCR Not Detected (NotDetected); Influenza A PCR Not Detected (NotDetected); Influenza B PCR Not Detected (NotDetected); Mycoplasma pneumoniae PCR Not Detected (NotDetected); Parainfluenza Virus 1 PCR Not Detected (NotDetected); Parainfluenza Virus 2 PCR Not Detected (NotDetected); Parainfluenza Virus 3 PCR Not Detected (NotDetected); Parainfluenza Virus 4 PCR Not Detected (NotDetected); Respiratory Syncytial VirusPCR Not Detected (NotDetected)
[2022-09-16] MEDS: HEPARIN SOD 5,000 UNIT/0.5 ML VIAL SQ SCH (23:35)
[2022-09-16 23:38] LABS: Rhinovirus/Enterovirus PCR DETECTED (NotDetected)
[2022-09-16] MEDS: carvediloL 25 MG TAB PO SCH (23:38)
[2022-09-16] MEDS: ATORVASTATIN 40 MG TAB PO SCH (23:38)
[2022-09-16] MEDS: VALSARTAN/SACUBITRIL 26/24MG TAB PO SCH (23:38)
[2022-09-16] MEDS: PARoxetine HCL 20 MG TAB PO SCH (23:39)
[2022-09-16] MEDS: ALBUT/IPRATROP 3MG/0.5MG NEB 3 ML VIAL NEB SCH (23:41)
[2022-09-17] MEDS: ALBUT/IPRATROP 3MG/0.5MG NEB 3 ML VIAL NEB SCH ×6 (02:42→23:46)
[2022-09-17 05:04] LABS: Hematocrit (blood only) 36.5 % (34.1-44.9); Hemoglobin 12.4 g/dl (12.0-16.0); Mean Corpuscular Volume 94.3 fL (80.0-100.0); Mean Platelet Volume 10.2 fL (9.4-12.3); Platelet Count 202 K/uL (130-400); RDW Coefficient of Variation 12.9 % (11.5-14.5); RDW Standard Deviation 43.9 fL (36.4-46.3); Red Blood Count 3.87 M/uL (3.93-5.22); White Blood Count 8.83 K/ul (4.8-10.8)
[2022-09-17 05:27] LABS: BUN Creatinine Ratio 22.2 (10-20); Calcium 8.4 mg/dl (8.5-10.1); Creatinine Clr Calc Pharmacy 49.4 ml/min; Est GFR (African American) 68.5 ml/min; Est GFR (Non-African American) 59.1 ml/min; Potassium 4.7 mmol/L (3.5-5.1)
[2022-09-17] MEDS: carvediloL 25 MG TAB PO SCH ×2 (10:13→20:15)
[2022-09-17] MEDS: predniSONE 20 MG TAB PO SCH (10:13)
[2022-09-17] MEDS: HEPARIN SOD 5,000 UNIT/0.5 ML VIAL SQ SCH ×2 (10:13→20:15)
[2022-09-17] MEDS: VALSARTAN/SACUBITRIL 26/24MG TAB PO SCH ×2 (10:13→20:16)
[2022-09-17] MEDS: ASPIRIN 81 MG ECTAB PO SCH (10:14)
--- NOTE | 2022-09-17 12:21 | XCELERA ---
[id number]
--- NOTE | 2022-09-17 12:49 | Electrocardiogram Report ---
Test Reason : Blood Pressure : / mmHG Vent. Rate : 057 BPM Atrial Rate : 057 BPM P-R Int : 172 ms QRS Dur : 154 ms QT Int : 462 ms P-R-T Axes : 023 -26 120 degrees QTc Int : 449 ms Sinus bradycardia Left bundle branch block Abnormal ECG When compared with ECG of 25-FEB-2022 07:05, No significant change was found Confirmed by Veto Hardy ([id number]) on 09/17/2022 12:48:45 PM Referred By: Confirmed By:Bert Hardy
--- NOTE | 2022-09-17 13:48 | Progress Note ---
Date of Service September 17, 2022 Assessment & Plan (1) Dyspnea: Plan: 81-year-old female with recurrence of cough with shortness of breath of the last year to 16 months now with hypoxia and concern for bronchitis. * Respiratory panel shows positive rhinovirus/enterovirus results. CT concerning for diffuse peribronchial thickening suggestive of bronchitis or reactive airway disease. Additionally, patient with small pleural effusions bilaterally. * Received initial dose of Lasix yesterday. Will repeat dose again today. * Currently covered with Levaquin and low-dose steroids. * In conversation with patient and family, they report that the patient had babysat 2 grandchildren and shortly after became sick herself. Her current flareup is likely related to the rhino enterovirus infection, however it is certainly concerning given her frequency of infections. Ideally, the patient would benefit from outpatient pulmonary follow-up. We will work on that while she is admitted. They are agreeable to follow locally with [facility] physician group. In the interim, we will place the patient on a long-acting beta agonist/inhaled corticosteroid combo moving forward as this may help with long-term symptom reduction. This was discussed with patient and family at bedside who are in agreement. * Continue course of Levaquin and steroids till complete. * Arrange outpatient pulmonary followup. (2) Chronic heart failure with preserved ejection fraction: Plan: * Echo demonstrating preserved EF of 55-60% w/o other acute findings. * Will continue with low dose Lasix given physical exam/CT findings. Admission and Anticipated Discharge Date Admission Date: September 16, 2022 Supervising Physician Co-Signing Physician Notes Attending Attestation - Chart reviewed, care plan d/w HERLINDA Rodriguez. I agree w/ the woodruff components of his documentation. Chino Campos MD Subjective Patient was seen and evaluated at bedside. She reports that other than her cough, she does not feel poorly. Her oxygen saturations were dipping low and she did require supplemental oxygen overnight. This has been titrated down throughout the day. Granddaughter is present at bedside and reports that she has had nearly 11 diagnoses of bronchitis over the past 12 to 16 months as well as multiple Z-Kavin's and rounds of steroids. There trying to get with a pulmonary provider, but she has not been well enough to be able to see 1. They are interested in following locally if possible. They are questioning if she carries a diagnosis of asthma. It was explained to them that she would need to undergo formal pulmonary testing, but that she may benefit from regular inhalers in the interim. Family seem comfortable with this. Otherwise, the patient reports feeling well and offers no complaints. Review of Systems Review of Systems: A complete 10 point review of systems was reviewed with the patient with pertinent positives and negatives as per history of present illness. All else were negative. Physical Exam Physical Exam: VITAL SIGNS - Vital signs and nursing notes were reviewed. GENERAL - 81-year-old female appearing her stated age who is in no acute distress. Communicates well with provider and answers questions appropriately. HEAD - NC/AT. EYES - PERRL with EOMI bilaterally. Sclera anicteric. MOUTH/OROPHARYNX - Without perioral cyanosis. NECK - Neck with FROM. LUNGS - Chest wall symmetric without accessory muscle use, intercostals retractions, or central cyanosis. Normal vesicular breath sounds CTA B/L. LEFT basilar rales. CARDIAC - RRR with S1/S2. No murmur, rubs, or gallops appreciated. No reproducible tenderness to palpation appreciated over the anterior chest wall. ABDOMEN - Abdominal contour flat without pulsations or visible masses. BS normoactive all four quadrants. No tenderness, palpable masses, hepatosplenomegaly, or ascites noted. EXTREMITIES - No clubbing or peripheral cyanosis. No pretibial edema present. +3/5 radial and dorsalis pedis pulses palpated throughout. +5/5 strength noted in UE/LE bilaterally. NEUROLOGIC - Cranial nerves II through XII grossly intact. Sensory intact to light touch throughout. PSYCH - A&Ox3 and cooperates fully with examiner. Pt is very pleasant and intera cts well with examiner. Results & Data ([facility]) Vital Signs (Past 12 Hours) Vital Signs Pulse Resp BP Pulse Ox O2 Del Method O2 Flow Rate 09/17/22 10:31 81 18 92 Room Air 09/17/22 06:00 67 18 135/81 93 Nasal Cannula 2 09/17/22 05:52 71 18 94 Nasal Cannula 2 09/17/22 02:42 62 16 94 Nasal Cannula 2 09/17/22 02:18 103/60 09/17/22 02:00 80 18 81/60 L 96 Room Air PG Care Time/CCT Total # of Minutes Spent Total Time Spent with Patient: Total time spent is greater than 50% in coordination of care (as documented) at patient's floor/unit and/or counseling patient: Coding Level of Care Code 02537 Subseq Hosp Care Lvl 3 Diagnoses Dyspnea R06.00 Chronic heart failure with preserved ejection fraction I50.32 Time Spent (min) 35
[2022-09-17] MEDS ORDERED: guaiFENesin SUGAR FREE 200 MG/10 ML UDC PO PRN (15:45)
[2022-09-17] MEDS: FLUTICASONE/VILANTEROL 100/25MCG 14 PUFFS/INHALER INH SCH (16:24)
[2022-09-17] MEDS: ATORVASTATIN 40 MG TAB PO SCH (20:14)
[2022-09-17] MEDS: PARoxetine HCL 20 MG TAB PO SCH (20:15)
[2022-09-18] MEDS: ALBUT/IPRATROP 3MG/0.5MG NEB 3 ML VIAL NEB SCH ×4 (02:20→14:18)
[2022-09-18] MEDS: predniSONE 20 MG TAB PO SCH (08:21)
[2022-09-18] MEDS: VALSARTAN/SACUBITRIL 26/24MG TAB PO SCH (08:21)
[2022-09-18] MEDS: ASPIRIN 81 MG ECTAB PO SCH (08:21)
[2022-09-18] MEDS: FLUTICASONE/VILANTEROL 100/25MCG 14 PUFFS/INHALER INH SCH (08:22)
[2022-09-18] MEDS: carvediloL 25 MG TAB PO SCH (08:22)
[2022-09-18] MEDS: HEPARIN SOD 5,000 UNIT/0.5 ML VIAL SQ SCH (08:23)
[2022-09-18 09:56] LABS: Basophils # (auto) 0.03 K/uL (0-0.2); Basophils % (auto) 0.2 %; Eosinophils # (auto) 0.07 K/uL (0-0.50); Eosinophils % (auto) 0.5 %; Hematocrit (blood only) 36.4 % (34.1-44.9); Immature Granulocytes # (auto) 0.14 K/uL (0.00-0.02); Immature Granulocytes % (auto) 1.1 %; Lymphocytes # (auto) 3.82 K/uL (1.2-3.4); Mean Corpuscular Volume 97.1 fL (80.0-100.0); Mean Platelet Volume 10.7 fL (9.4-12.3); Monocytes # (auto) 0.71 K/uL (0.24-0.82); Monocytes % (auto) 5.6 %; Neutrophils # (auto) 7.96 K/uL (1.4-6.5); Neutrophils % (auto) 62.6 %; Platelet Count 192 K/uL (130-400); RDW Coefficient of Variation 13.2 % (11.5-14.5); RDW Standard Deviation 46.8 fL (36.4-46.3); Red Blood Count 3.75 M/uL (3.93-5.22); White Blood Count 12.73 K/ul (4.8-10.8)
--- NOTE | 2022-09-18 10:15 | Hospitalist Progress Note ---
Date of Service September 18, 2022 Assessment & Plan (1) Dyspnea: Plan: 81-year-old female with recurrence of cough with shortness of breath of the last year to 16 months now with hypoxia and concern for bronchitis. * Respiratory panel shows positive rhinovirus/enterovirus results. CT concerning for diffuse peribronchial thickening suggestive of bronchitis or reactive airway disease. Additionally, patient with small pleural effusions bilaterally. * Will complete her course of Levaquin and steroids at home. * Continues with Breo. Recommend rinsing mouth out after use. * Will discuss with pulmonary colleague to setup follow up appointment in the outpatient setting. * Anticipate D/C today. (2) Chronic heart failure with preserved ejection fraction: Plan: * Echo demonstrating preserved EF of 55-60% w/o other acute findings. * Will continue with low dose Lasix given physical exam/CT findings. Admission and Anticipated Discharge Date Admission Date: September 16, 2022 Supervising Physician Co-Signing Physician Notes Attending Attestation - Chart reviewed, care plan d/w PA Alex Rodriguez. I agree w/ the woodruff components of his documentation. Please see my attestation on d/c summary from same date for further information. Chino Campos MD Subjective Patient was seen and evaluated by myself at bedside. She has been off supplemental oxygen for several hours at this point. She reports that she has a slightly productive cough at this point which she reports helps her feel better to cough up some of the mucus. She has been utilizing her nebulizers as well as the new Breo Ellipta inhaler. She is ambulating down the reyes. Patient is doing well and is hoping to be discharged home today. Review of Systems Review of Systems: A complete 10 point review of systems was reviewed with the patient with pertinent positives and negatives as per history of present illness. All else were negative. Physical Exam Physical Exam: VITAL SIGNS - Vital signs and nursing notes were reviewed. GENERAL - 81-year-old female appearing her stated age who is in no acute distress. Communicates well with provider and answers questions appropriately. HEAD - NC/AT. EYES - PERRL with EOMI bilaterally. Sclera anicteric. MOUTH/OROPHARYNX - Without perioral cyanosis. NECK - Neck with FROM. LUNGS - Chest wall symmetric without accessory muscle use, intercostals retractions, or central cyanosis. Normal vesicular breath sounds CTA B/L. LEFT basilar rales. CARDIAC - RRR with S1/S2. No murmur, rubs, or gallops appreciated. No reproducible tenderness to palpation appreciated over the anterior chest wall. ABDOMEN - Abdominal contour flat without pulsations or visible masses. BS normoactive all four quadrants. No tenderness, palpable masses, hepatosplenomegaly, or ascites noted. EXTREMITIES - No clubbing or peripheral cyanosis. No pretibial edema present. +3/5 radial and dorsalis pedis pulses palpated throughout. +5/5 strength noted in UE/LE bilaterally. NEUROLOGIC - Cranial nerves II through XII grossly intact. Sensory intact to light touch throughout. PSYCH - A&Ox3 and cooperates fully with examiner. Pt is very pleasant and interacts well with examiner. Results & Data Results & Data ([facility]) Vital Signs (Past 12 Hours) Vital Signs Temp Pulse Pulse Resp BP Pulse Ox O2 Del Method 09/18/22 10:10 Room Air 09/18/22 08:00 36.8 C 69 18 139/84 91 Room Air 09/18/22 07:11 65 09/18/22 05:32 65 91 Room Air 09/18/22 03:00 36.7 C 68 20 148/82 H 91 Room Air 09/17/22 23:49 76 18 90 Room Air 09/17/22 23:00 36.9 C 62 20 119/67 97 Room Air 09/17/22 22:17 Room Air
[2022-09-18 10:29] LABS: BUN Creatinine Ratio 27.6 (10-20); Calcium 8.4 mg/dl (8.5-10.1); Creatinine Clr Calc Pharmacy 44.7 ml/min; Est GFR (African American) 61.8 ml/min; Est GFR (Non-African American) 53.3 ml/min; Potassium 3.8 mmol/L (3.5-5.1)
[2022-09-18] MEDS ORDERED: levoFLOXacin 750 MG TAB PO SCH (11:00)
--- NOTE | 2022-09-18 14:39 | Discharge Summary ---
Date of Service September 18, 2022 Admission HPI Per Admitting Provider 81yo F w/ hx of cardiomyopathy and HFrEF who presents with shortness of breath and cough. The patient was in the hospital for a mild CHF exacerbation in 02/2022. She was gently diuresed, and then was discharged after 3-4 days. Per granddaughter, she actually developed the cough on the day of discharge, and then had a cough with some shortness of breath for about 1 month after requiring two rounds of azithromycin and one of steroids. She was fine for about 1 month, then developed the cough again, again requiring azithromycin. Since then, she has been going back on azithromycin, getting well for a shorter and shorter duration, then requiring more steroid and azithromycin. Her granddaughter thinks she has been on a Z-pack at least 4 times since this summer. Today, she presents with continued cough and shortness of breath. At home, she is occasionally hypoxic on a home meter, though today she is 96% on room air. She reports that she was quite good at weighing herself after her discharge from the hospital, but at this point, she does not weigh herself frequently. Admission Exam (Per Admitting) Constitutional Constitutional: WD/WN, vitals as above Eyes: EOM intact bilaterally; no conjunctival abnormality ENMT: external ear and nose normal, oropharynx normal Neck: trachea midline, no thyromegaly normal visual inspection Respiratory: + cough; no respiratory distress, no lab ored breathing and not tachypneic Auscultation: + wheezes (Mild end-expiratory); no rhonchi Cardiovascular: RRR, no murmur, no edema Gastrointestinal (Abdomen): Inspection/Auscultation: abdomen normal to inspection; abdomen not distended Musculoskeletal: no cyanosis or clubbing, extremities motor strength 5/5 Skin: no rashes, warm and dry Neurologic: moves all extremities and awake Psychiatric: Orientation: alert, oriented to person and cooperative Specialty Data Hospitalist Discharge Diagnosis - Rhinovirus infection with bronchitis Recurrent episodes of respiratory infection/?bronchitis Large hiatal hernia h/o chronic systolic CHF - EF now improved Discharge Data Consultations 09/16/22 19:05 ED Decision to Admit Stat Hospital Course (1) Dyspnea: 81-year-old female with recurrence of cough with shortness of breath of the last year to 16 months now with hypoxia and concern for bronchitis. * Respiratory panel shows positive rhinovirus/enterovirus results. CT concerning for diffuse peribronchial thickening suggestive of bronchitis or reactive airway disease. Additionally, patient with small pleural effusions bilaterally. * Will finish remaining doses of Levaquin (750 mg q2 days for a total of 4 doses). Will also complete a 5 day course of prednisone (20 mg daily). * Continues with Breo. Recommend rinsing mouth out after use. * Follow-up established with Dr. Garcia in the pulmonary clinic next week. * Discharge home today with self care and under the watchful eye of her RN granddaughter. (2) Chronic heart failure with preserved ejection fraction: (2) Chronic heart failure with preserved ejection fraction: Plan: * Echo demonstrating preserved EF of 55-60% w/o other acute findings. * EKG on 09/16 shows Sinus Bradycardia at 57 bpm w/ LBBB and QTc of 449 ms. * Will continue with low dose Lasix given physical exam/CT findings. (3) Hiatal hernia: large cont PPI consider increasing to BID dosing contributing to recurrent respiratory symptoms? (4) Rhinovirus infection: Respiratory BioFire + for such supportive care Supervising Physician Co-Signing Physician Notes Attending Attestation and Discharge Note: Pt seen/examined, chart reviewed, discharge care plan d/w HERLINDA Rodriguez. I agree w/ the woodruff components of his discharge documentation. Pleasant 81yo female with h/o chronic systolic CHF - EF now improved - with recurrent episodes of respiratory infection over the last 6 months. She has transient improvement with antibiotics and steroid therapy and then respiratory symptoms return. At time of this admission patient again reported cough and shortness of breath. Respiratory BioFire panel was + for rhinovirus. CT chest - IMPRESSION: 1. Cardiomegaly and trace pleural effusions. 2. Large hiatal hernia. 3. There is diffuse peribronchial thickening which suggests bronchitis/reactive airway disease. Clinical correlation will be required. 4. Minimal groundglass opacities at the right lung base may represent a minimal pneumonitis. She was treated with bronchodilators, steroids, and abx. She briefly needed supplemental NC O2 during the visit but this was fully weaned off by discharge. 2-step ambulatory O2 test was normal; she does not need home O2. She is being d/c on levaquin in the event she has bacterial superinfection in the setting of her rhinovirus infection. She has been initiated on Breo for persistent bronchial symptoms over the last few months. A course of prednisone was also prescribed at discharge. In addition, given the large hiatal hernia, could reflux leading to chronic aspiration be playing a role in her recurrent respiratory issues?? Advise increasing her PPI to twice daily. She will have close f/u with [facility] shortly after discharge for PFTs and additional w/u. Discharge exam - gen - NAD neck - no JVD heart - RRR, s1 s2 lungs - CTA b/l, no rales or wheeze; airation good; no distress ext - no edema, pulses 2+ b/l Chino Campos MD Coding Level of Care Code D/C DAY MANAGEMENT >30 MINS Diagnoses Dyspnea R06.00 Chronic heart failure with preserved ejection fraction I50.32 Hiatal hernia K44.9 Rhinovirus infection B34.8 Time Spent (min) 42
== END 2022-09-18 15:34 | disposition home or self-care (01) ==
LOC: ED 14:46 → INTOOBSV 19:44 → SUATTDRO 19:44 → EDINP 19:44 → 2N 22:09

== ENCOUNTER 2024-11-18 20:50 | Observation (INO) ==
[2024-11-18] MEDS: ONDANSETRON INJ 2 MG/ML 2 ML VIAL ONE (22:01)
[2024-11-18 22:04] LABS: Basophils # (auto) 0.03 K/uL (0.00-0.20); Basophils % (auto) 0.2 %; Eosinophils # (auto) 0.18 K/uL (0.00-0.50); Eosinophils % (auto) 1.4 %; Hematocrit (blood only) 37.7 % (37.0-47.0); Hemoglobin 12.5 g/dl (12.0-16.0); Immature Granulocytes # (auto) 0.14 K/uL (0.01-0.20); Immature Granulocytes % (auto) 1.1 %; Lymphocytes # (auto) 3.19 K/uL (1.20-3.40); Lymphocytes % (auto) 24.5 %; Mean Corpuscular Hemoglobin 30.4 pg (25.0-34.0); Mean Corpuscular Hgb Conc 33.2 g/dL (32.0-36.0); Mean Corpuscular Volume 91.7 fL (80.0-100.0); Monocytes # (auto) 1.27 K/uL (0.11-0.59); Monocytes % (auto) 9.7 %; Neutrophils # (auto) 8.22 K/uL (1.40-6.50); Neutrophils % (auto) 63.1 %; Platelet Count 281 K/uL (130-400); RDW Coefficient of Variation 13.7 % (11.5-14.5); RDW Standard Deviation 45.4 fL (36.4-46.3); Red Blood Count 4.11 M/uL (4.20-5.40); White Blood Count 13.03 K/ul (4.8-10.8)
[2024-11-18 22:05] LABS: Albumin Globulin Ratio 1.3 (0.9-2); Albumin Level 3.8 gm/dl (3.4-5.0); BUN Creatinine Ratio 17.2 (10-20); Bilirubin,Total 0.8 mg/dl (0.2-1.0); Calcium 8.7 mg/dl (8.6-10.3); Creatinine Clr Calc Pharmacy 28.7 ml/min; Globulin 2.9 gm/dl (2.5-4.0); Magnesium 2.2 mg/dl (1.7-2.4); Potassium 4.8 mmol/L (3.5-5.1); Total Protein 6.7 gm/dl (6.0-8.3)
[2024-11-18 22:13] LABS: Troponin I High Sensitivity 13.1 pg/ml (0-14)
[2024-11-18 22:20] LABS: Thyroid Stimulating Hormone 9.515 uIu/ml (0.300-4.500)
[2024-11-18] MEDS: MECLIZINE HCL 25 MG TAB PO STA (22:44)
[2024-11-18 22:55] LABS: T4 Free Thyroxine 1.11 ng/dl (0.61-1.60)
[2024-11-18 23:00] LABS: Appearance Urine Clear (Clear); Bacteria Urine Automated None Seen (None Seen); Bilirubin Urine Negative (Negative); Blood Urine Negative (Negative); Cast Urine Automated 0-2 /lpf (0-2); Color Urine Yellow; Epithelial Cell Urine Auto 0-2 /hpf (0-2); Glucose Urine UA Negative (Negative); Ketones Urine Negative (Negative); Leukocyte Esterase Urine Negative (Negative); Nitrite Urine Negative (Negative); Protein Urine Trace (Negative); RBC Urine Automated 0-2 /hpf (0-2); Specific Gravity Urine 1.015 (1.000-1.030); Urobilinogen Urine Negative (Negative); WBC Urine Automated 0-5 /hpf (0-5); pH Urine >= 9.0 (4.5-7.5)
--- NOTE | 2024-11-18 23:00 | Emergency Department Note ---
Impression & Plan Generalized weakness, Fall, CHI (closed head injury), Dizziness ED Provider Note NAME: STEFFANIE Yan MINOR AGE: 83 SEX: Female INFORMANT: Patient and family ED PROVIDER(S): Kuldip Kimbrough MD CHIEF COMPLAINT: Dizziness and weakness PLAN: Disposition: Admitted Outpatient prescription management: none Referral: None MEDICAL DECISION MAKING: Patient presented because of dizziness and weakness. Family was concerned as she has been much more fatigued since her hospital discharge and are concerned she is getting deconditioned. She has been dealing with dizziness. Her ECG did not show any acute ischemia. Patient had no dysrhythmia on monitoring. She had a mild leukocytosis on CBC. Chemistry panel was unremarkable. Magnesium was normal. Patient underwent CT imaging of the head and cervical spine. Straight cath urinalysis was performed. With the movement from her exam room to CT and back the patient became very nauseated and dizzy. She did require Zofran. I also did give her a dose of meclizine. Patient has positive orthostatic testing. This could explain some of the dizziness although she did feel better with the meclizine as well. Possible dual component. Consultation was made with Dr. Kris Mae of the [facility] service. Patient was evaluated in the ER for further management. Care/management discussed with: manager credit Level of care consideration(s): After review of the information above and other included data, I feel the patient requires escalation of care to admission Triage Nursing notes: reviewed and agree them. Vital Signs: reviewed and remarkable for no significant abnormalities Additional History obtained from: Patient's family Chronic Medical/Social Conditions affecting care: CHF, CAD Prior/ Outside/ External records reviewed: Hospital discharge from her admission last week was reviewed. Patient had elevated BNP. Chemistry is otherwise unremarkable. Differential Diagnosis: Concussion, closed head injury, SDH, SAH, fracture infection, dehydration, metabolic abnormality, hypo/hyperglycemia, electrolyte disturbance, anemia, hypoxia, cardiac sources, intracerebral event, CVA, TIA, toxicologic, neurologic, as well as other pathologies. Diagnostics, independently interpreted by me: ECG: Twelve-lead ECG reveals a normal sinus rhythm at 61 bpm. Left axis deviation and left bundle branch block. Cardiac Monitoring: Cardiac monitoring ordered by me: The patient was placed on continuous cardiac monitoring and observed. It revealed a normal sinus rhythm at 60 beats per minute without ectopy or evidence of dysrhythmia. Medical decision rules: none Imaging studies: Head CT: A noncontrast CT scan of the head was performed and was negative for tumor, fracture, intracranial hemorrhage, or other acute pathology. HPI: 83 year old Female arrives for evaluation of dizziness and weakness. Patient notes she has had feelings of fatigue and dizziness over the last month. She went to [facility] and was admitted. She had nausea and vomiting with the dizziness. She was told her oxygen was mildly low and she had gout. Her laboratory testing did not reveal any significant issues other than a mildly elevated BNP. Patient does note a history of heart failure. Denies any recent weight gain or significant lower extremity edema. She notes over the last week she has not been able to function well and has been sitting around quite a bit. She has had increased generalized weakness. She notes dizziness with movement. Patient was noting increasing symptoms and asked family to bring her to the hospital. Family was concerned as she has been much less mobile and active over the last week since discharge. Patient does have a history of hypomagnesemia and UTI. She notes chronic loose stool. She got very dizzy and weak today and fell over. She did strike her left forehead and family noted a hematoma develop. She has a mild headache. Pt denies LOC, fevers, chills, diaphoresis, visual changes, neck pain, chest pain, breathing difficulties, abdominal pain, back pain, melena, hematochezia, numbness, lymphadenopathy, rash, or other complaints. PAST MEDICAL HISTORY: See Below, CHF, GERD PAST SURGICAL HISTORY: See Below, SOCIAL HISTORY: See Below, retired HOME MEDICATIONS: See Below ALLERGIES: See Below VITALS: See Below PHYSICAL EXAMINATION: GENERAL: Awake, alert, age-appropriate appearing, in no distress HENT: Normocephalic, atraumatic. Oropharynx unremarkable. EYES: Normal conjunctiva. Sclera non-icteric. PERRLA. EOMI. NECK: Inspection normal. Non-tender. Supple. No nuchal rigidity. FROM. No masses. RESPIRATORY: Clear to auscultation. No wheezes. No rales. Normal respiratory effort. CARDIAC: Normal rate. Normal rhythm. No murmurs. No rubs. Extremities warm and well perfused. Pulses equal. No JVD. GI: Soft, non-distended. No tenderness to palpation. No rebound or guarding. No masses. RECTAL: Deferred. MUSCULOSKELETAL: Atraumatic. Chest examination reveals no tenderness. The back is kyphotic on inspection without obvious abnormality. There is no CVA tenderness to palpation. No joint edema. LOWER EXTREMITIES: Calves are equal size bilaterally and non-tender. No edema. No discoloration. NEURO: Normal sensorium. No sensory or motor deficits noted. Speech normal. No drift. SKIN: No rash or jaundice noted. PROCEDURES: none CRITICAL CARE: none OBSERVATION NOTE: none Past Med/Surg History Problem List (Updated 11/19/24 @ 02:34 by Zina Hooper PA-C) Hypotension Leukocytosis Swelling of right wrist Dehydration Dizziness (Acute) CHI (closed head injury) (Acute) Fall (Acute) Generalized weakness (Acute) Chronic cough GERD (gastroesophageal reflux disease) Weakness (Acute) Urinary tract infection (Acute) Hypomagnesemia (Acute) Hyperlipidemia MCHUGH (dyspnea on exertion) Hyponatremia Acute respiratory failure with hypoxia NYHA class 3 heart failure with preserved ejection fraction, with improvement of ejection fraction from prior measurement Bacteremia Dyspnea (Acute) Failure of outpatient treatment (Acute) Rhinovirus infection GERD (gastroesophageal reflux disease) Aspiration pneumonitis Lung nodule Hiatal hernia Chronic heart failure with preserved ejection fraction CAD (coronary artery disease) Urinary incontinence Anemia Hiatal hernia Cardiomyopathy follows with Dr. Asher in [place], [place] Medical History (Updated 11/19/24 @ 02:34 by Zina Hooper PA-C) Osteoarthritis Frequent UTI Hearing deficit Chronic cough intermittent since pt had covid History of COVID-19 x3---last 07/2021--moderate symptoms (bronchitis--uses oxygen/nebulizer during the time)--still has mild SOB/cough intermittently On home oxygen therapy 2L N/C PRN for SOB/sickness Spinal stenosis Valvular heart disease High cholesterol Surgical History History of lumpectomy of left breast removal of calcium deposit History of bilateral breast reduction surgery History of colonoscopy History of tooth extraction all teeth removed History of blepharoplasty History of cardiac cath multiple, no stents placed--last 2018 H/O: hysterectomy History of appendectomy History of cholecystectomy Family History Other No family history of adverse response to anesthesia Social History Smoking Status: Never smoker Second Hand Exposure: No; Do You Dip or Chew Tobacco: No; Hx Alcohol Use: No Hx Substance Use: No Preferred Language: Mongolian Communication Ability: Effective Communication Ability Comment: pt can sign own consents 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 Required: No Beliefs That Will Affect Care: None marital status: / Current Living Situation: Alone How many Children do You have: 4 Feels Safe at Home: Yes Safety Concerns: Feels Safe At This Time Assistive Devices: Denture - Upper, Denture - Lower and Glasses Allergies Allergies Allergy/AdvReac Type Severity Reaction Status Date / Time amoxicillin [From Augmentin] Allergy Severe Anaphylaxis Verified 10/30/22 10:55 cefuroxime Allergy Severe Anaphylaxis Verified 10/30/22 10:55 clarithromycin Allergy Severe Anaphylaxis Verified 10/30/22 10:55 clavulanic acid Allergy Severe Anaphylaxis Verified 10/30/22 10:55 [From Augmentin] erythromycin base Allergy Severe Anaphylaxis Verified 10/30/22 10:55 Penicillins Allergy Severe Anaphylaxis Verified 10/30/22 10:55 phenobarbital Allergy Severe Anaphylaxis Verified 10/30/22 10:55 Home Meds Home Medications Medication Instructions Recorded Confirmed aspirin 81 mg tablet,delayed 81 mg PO QAM 02/25/22 11/19/24 release atorvastatin 80 mg tablet 80 mg PO HS 02/25/22 11/19/24 cyanocobalamin (vitamin B-12) 1,000 mcg subcut .EVERY 3 WEEKS 02/25/22 11/19/24 1,000 mcg/mL injection solution ferrous sulfate 325 mg (65 mg 325 mg PO QAM 02/25/22 11/19/24 iron) tablet (iron) naproxen 500 mg tablet 500 mg PO DAILY PRN Back Pain 02/25/22 11/19/24 omega 1-fkv-vcb-fish oil 1,000 mg 1 cap PO HS 02/25/22 11/19/24 (120 mg-180 mg) capsule (Fish Oil) paroxetine HCl 20 mg tablet 20 mg PO HS 02/25/22 11/19/24 tolterodine 4 mg capsule,extended 4 mg PO HS 02/25/22 11/19/24 release 24 hr vit C 250 mg-vit E 90 mg-zinc 40 1 tab PO DAILY ##0 02/25/22 11/19/24 mg-copper 1 [id number]-[id number] capsule (PreserVision AREDS-2) carvedilol 25 mg tablet 25 mg PO BID 04/04/22 11/19/24 sacubitril 24 mg-valsartan 26 mg 1 tab PO BID 04/04/22 11/19/24 tablet (Entresto) furosemide 40 mg tablet (Lasix) 20 mg PO MOWEFR 09/16/22 11/19/24 calcium carbonate 600 mg PO DAILY 11/19/24 11/19/24 diclofenac sodium 1 % topical gel 2 g topical QID PRN Pain 11/19/24 11/19/24 tramadol 50 mg tablet 50 mg PO Q6H PRN Pain 11/19/24 11/19/24 Previous Rx's Medication Instructions Recorded pantoprazole 40 mg tablet,delayed 40 mg PO BID 90 days #180 tabs 10/24/22 release (Protonix) Results & Data (ED) Vital Signs Vital Signs - 24 hr 11/18/24 20:59 11/18/24 21:24 11/18/24 21:31 Temperature 36.6 C Temperature Source Temporal Artery Scan Pulse Rate 64 61 Pulse Rate [Apical] 60 Pulse Rhythm [Apical] Pulse Strength [Apical] Respiratory Rate 18 19 Respiratory Effort / Characteristics Non-Labored Spontaneous Respiratory Depth Normal Respiratory Pattern Regular Blood Pressure - Lying Blood Pressure - Sitting Blood Pressure 101/59 L Blood Pressure [Right Arm] 113/82 Blood Pressure Mean 73 Blood Pressure Mean [Right Arm] 92 Blood Pressure Position Sitting Blood Pressure Position [Right Arm] Pulse Oximetry 96 97 Oxygen Delivery Method Room Air Room Air Oxygen Flow Rate Sepsis Recent Fever Within 48 Hours No Sepsis New/Unexplained Change in Mental Status N/A Sepsis Action Taken by Nursing No Action Required 11/18/24 23:01 11/19/24 00:09 11/19/24 00:31 Temperature Temperature Source Pulse Rate Pulse Rate [Apical] 60 Pulse Rhythm [Apical] Pulse Strength [Apical] Respiratory Rate 18 Respiratory Effort / Characteristics Non-Labored Spontaneous Respiratory Depth Normal Respiratory Pattern Regular Blood Pressure - Lying 113/63 Blood Pressure - Sitting 91/63 L Blood Pressure Blood Pressure [Right Arm] 117/68 Blood Pressure Mean Blood Pressure Mean [Right Arm] 84 Blood Pressure Position Blood Pressure Position [Right Arm] Lying Pulse Oximetry 92 Oxygen Delivery Method Nasal Cannula Room Air Oxygen Flow Rate 2 Sepsis Recent Fever Within 48 Hours Sepsis New/Unexplained Change in Mental Status Sepsis Action Taken by Nursing 11/19/24 00:31 Temperature Temperature Source Pulse Rate Pulse Rate [Apical] 64 Pulse Rhythm [Apical] Regular Pulse Strength [Apical] Normal Respiratory Rate 18 Respiratory Effort / Characteristics Non-Labored Spontaneous Respiratory Depth Normal Respiratory Pattern Regular Blood Pressure - Lying Blood Pressure - Sitting Blood Pressure Blood Pressure [Right Arm] 105/60 Blood Pressure Mean Blood Pressure Mean [Right Arm] 75 Blood Pressure Position Blood Pressure Position [Right Arm] Lying Pulse Oximetry 95 Oxygen Delivery Method Room Air Oxygen Flow Rate Sepsis Recent Fever Within 48 Hours Sepsis New/Unexplained Change in Mental Status Sepsis Action Taken by Nursing Laboratory Data 11/19/24 04:17 11/19/24 04:17 Lab Results 11/18/24 11/18/24 Range/Units 21:16 22:35 WBC 13.03 H (4.8-10.8) K/ul RBC 4.11 L (4.20-5.40) M/uL Hgb 12.5 (12.0-16.0) g/dl Hct 37.7 (37.0-47.0) % MCV 91.7 (80.0-100.0) fL MCH 30.4 (25.0-34.0) pg MCHC 33.2 (32.0-36.0) g/dL RDW Std Deviation 45.4 (36.4-46.3) fL RDW Coeff of [place] 13.7 (11.5-14.5) % Plt Count 281 (130-400) K/uL MPV 10.0 (9.4-12.4) fL Immature Gran % (Auto) 1.1 % Neut % (Auto) 63.1 % Lymph % (Auto) 24.5 % Power % (Auto) 9.7 % Eos % (Auto) 1.4 % Baso % (Auto) 0.2 % Neut # (Auto) 8.22 H (1.40-6.50) K/uL Lymph # (Auto) 3.19 (1.20-3.40) K/uL Power # (Auto) 1.27 H (0.11-0.59) K/uL Eos # (Auto) 0.18 (0.00-0.50) K/uL Baso # (Auto) 0.03 (0.00-0.20) K/uL Immature Gran # (Auto) 0.14 (0.01-0.20) K/uL ESR 27 (0-30) mm/hr Sodium 131 L (136-145) mmol/L Potassium 4.8 (3.5-5.1) mmol/L Chloride 97 L (98-107) mmol/L Carbon Dioxide 27 (21-32) mmol/L Anion Gap 7 (3-11) BUN 22 (6-23) mg/dl Creatinine 1.28 H (0.6-1.2) mg/dl Est Cr Clr Drug Dosing 28.7 ml/min eGFR 41.05 BUN/Creatinine Ratio 17.2 (10-20) Glucose 85 (70-99(Fasting)) mg/dl Uric Acid 5.9 (2.6-7.2) mg/dl Calcium 8.7 (8.6-10.3) mg/dl Magnesium 2.2 (1.7-2.4) mg/dl Total Bilirubin 0.8 (0.2-1.0) mg/dl AST 12 L (13-39) U/L ALT 14 (7-52) U/L Alkaline Phosphatase 110 H (34-104) U/L Troponin I High Sens 13.1 (0-14) pg/ml B-Natriuretic Peptide 28 (0-100) pg/ml Total Protein 6.7 (6.0-8.3) gm/dl Albumin 3.8 (3.4-5.0) gm/dl Globulin 2.9 (2.5-4.0) gm/dl Albumin/Globulin Ratio 1.3 (0.9-2) TSH 9.515 H (0.300-4.500) uIu/ml Free T4 1.11 (0.61-1.60) ng/dl Urine Color Yellow Urine Appearance Clear (Clear) Urine pH >= 9.0 H (4.5-7.5) Ur Specific [place] 1.015 (1.000-1.030) Urine Protein Trace H (Negative) Urine Glucose (UA) Negative (Negative) Urine Ketones Negative (Negative) Urine Blood Negative (Negative) Urine Nitrite Negative (Negative) Urine Bilirubin Negative (Negative) Urine Urobilinogen Negative (Negative) Ur Leukocyte Esterase Negative (Negative) Urine WBC (Auto) 0-5 (0-5) /hpf Urine RBC (Auto) 0-2 (0-2) /hpf U Hyaline Cast (Auto) 0-2 (0-2) /lpf U Epithel Cells (Auto) 0-2 (0-2) /hpf Urine Bacteria (Auto) None Seen (None Seen) Administered Medications Aspirin (Aspirin 81 Mg Ectab) 81 mg PO QAM [facility] Stop: 12/19/24 08:59 Last Admin: 11/19/24 09:34 Dose: 81 mg Documented By: Ferrous Sulfate (Ferrous Sulfate 325 Mg Tab) 325 mg PO QAM [facility] Stop: 12/19/24 08:59 Last Admin: 11/19/24 09:34 Dose: 325 mg Documented By: Sodium Chloride (Nss) 1,000 mls @ 125 mls/hr IV .Q8H [facility] Stop: 11/19/24 23:44 Last Admin: 11/19/24 08:03 Dose: 125 mls/hr Documented By: Infusion: 11/19/24 07:46 Dose: Infused Documented By: Admin: 11/18/24 23:46 Dose: 125 mls/hr Documented By: TANIA Pantoprazole Sodium (Pantoprazole 40 Mg Tab) 40 mg PO BID [facility] Stop: 12/19/24 08:59 Last Admin: 11/19/24 09:34 Dose: 40 mg Documented By: Discontinued Medications Meclizine HCl (Meclizine Hcl 25 Mg Tab) 25 mg PO NOW [facility] Stop: 11/18/24 22:08 Last Admin: 11/18/24 22:44 Dose: 25 mg Documented By: STACEY Ondansetron HCl (Ondansetron Inj 2 Mg/Ml 2 Ml Vial) Confirm Administered Dose 4 mg .ROUTE .STK-MED ONE Stop: 11/18/24 21:56 Last Admin: 11/18/24 22:01 Dose: 4 mg Documented By: HALLE Imaging Data Radiologist's Impression: Cervical Spine CT 11/18/24 21:19 Exam(s): CT C SPINE EXAM: CT Cervical Spine Without Intravenous Contrast CLINICAL HISTORY: Reason for exam: fall. TECHNIQUE: Axial computed tomography images of the cervical spine without intravenous contrast. CTDI is 23.18 mGy and DLP is 466.85 mGy-cm. Automated exposure control was utilized for the study. A dose lowering technique was utilized adhering to the principles of ALARA. COMPARISON: No relevant prior studies available. FINDINGS: Vertebrae: Unremarkable. No acute fracture. Discs/spinal canal/neural foramina: No acute findings. No spinal canal stenosis. Soft tissues: Unremarkable. IMPRESSION: No evidence of acute cervical spine pathology. Electronically signed by: Nya Chen MD 11/19/24 00:[address] 11/18/24 21:19 Exam(s): CT HEAD Without Contrast EXAM: CT Head Without Intravenous Contrast CLINICAL HISTORY: Reason for exam: fall. TECHNIQUE: Axial computed tomography images of the head/brain without intravenous contrast. CTDI is 23.18 mGy and DLP is 466.85 mGy-cm. Automated exposure control was utilized for the study. A dose lowering technique was utilized adhering to the principles of ALARA. COMPARISON: Prior head CT from September 20, 2022. FINDINGS: Brain: Unremarkable. No hemorrhage. Mild to moderate nonspecific white matter changes.. No edema. Ventricles: Unremarkable. No ventriculomegaly. Bones/joints: Unremarkable. No acute fracture. Soft tissues: Unremarkable. Sinuses: Chronic left maxillary and ethmoid sinusitis. No acute sinusitis. Mastoid air cells: Unremarkable as visualized. No mastoid effusion. IMPRESSION: No evidence of acute intracranial pathology. Electronically signed by: Nya Chen MD 11/19/24 01:13 AM Discharge Plan Visit Data Chief Complaint: Dizziness Stated Complaint: DIZZY, LIGHTHEADED, HEAD PAIN, SHAKEY ED Provider: Kuldip Kimbrough Discharge Problem: Generalized weakness, Fall, CHI (closed head injury), Dizziness Discharge Instructions Interventions: ED Discharge Assessment Last Done: 11/19/24 02:13
[2024-11-18] MEDS: SODIUM CHLORIDE 0.9% 1,000 ML IV SCH (23:46)
--- NOTE | 2024-11-19 00:38 | History & Physical Report ---
Date of Service November 19, 2024 Assessment & Plan (1) Dizziness: (2) Generalized weakness: (3) Fall: (4) Dehydration: (5) Hypotension: (6) Hyponatremia: (7) Swelling of right wrist: (8) Leukocytosis: (9) Cardiomyopathy: (10) Chronic heart failure with preserved ejection fraction: Plan Patient is a 89-year-old female with a past medical history of cardiomyopathy, GERD, hiatal hernia, anemia. She presented to the ED due to a fall secondary to dizziness, resulting in a head strike on her bathtub. Patient also endorses fatigue, weakness, and shakiness for several weeks. She is being admitted for cardiac workup including stress echocardiogram and PT/OT evals. #dizziness/fall dizziness/vertigo resulting in fall 11/[address] and cervical spine CT negative EKG showed NSR with LBBB, troponin 13.1 UA negative TSH WNL given age, TSH 9.5, free T41.1 PT/OT consulted fall and aspiration precautions stress echo ordered continuous telemetry monitoring sed rate, ANIKET, rheumatoid factor ordered Differential includes but not limited to PMR, BPPV, dehydration, cardiac abnormality adrenal insufficiency low on differential given weakness started prior to Medrol taper during recent admission #dehydration/hypotension/hyponatremia BP 105/60 on admission NA 131, suspect 2/2 hypovolemia Urine pH > 9.0 Cr elevated but does not meet criteria for MYRIAM (1.05 -> 1.28) - hold naproxen and Entresto meclizine and Zofran as needed Continue 1L NSS at 125ml/hr + promote oral hydration repeat orthostatics in a.m. hold carvedilol and lasix until volume repleted and BP improves trend BMP #right wrist swelling Noted at [facility] that patient was on IV steroids and had a Medrol taper on discharge for right wrist swelling that is now improved uric acid level ordered ice prn #leukocytosis WBC 13.03 on admission Suspect elevated 2/2 recent steroid use low suspicion for infectious cause, no flulike symptoms, UA negative, afebrile Trend CBC #cardiomyopathy/HFpEF most recent echo 09/12 showed EF 55 to 60% stress echo in the a.m. Holding Lasix and carvedilol with hypotension and dehydration as above monitor for fluid overload with rehydration Chronic stable diagnoses: HLDcontinue atorvastatin and ASA Anemiacontinue iron supplement GERD/hiatal herniacontinue pantoprazole VTE ppx: SCDs, defer chemical PPx with fall risk Diet: heart healthy Dispo: med/telemetry Admission and Anticipated Discharge Date Admission Date: 11/19/24 History of Present Illness Chief Complaint: dizziness Primary Care Provider: Hunter Garcia MD Patient is a 83-year-old female with a past medical history of cardiomyopathy, GERD, hiatal hernia, anemia. She presented to the ED due to a fall secondary to dizziness, resulting in a head strike on her bathtub. Patient also endorses fatigue, weakness, and shakiness for several weeks. She is being admitted for cardiac workup including stress echocardiogram and PT/OT evals. Patient seen at bedside with her son and daughter present. She stated that today she got dizzy and fell in her bathroom hitting her head on her bathtub. She denies feeling short of breath or with chest pain prior to the fall. Patient stated that she recently was admitted at [facility] for 2 days due to her weakness. She stated that for the past few weeks she has felt fatigued, weak, she feels like she sleeps all the time and does not really care about things. Her family stated that she does not eat good, she eats unhealthy and not much at all. Patient stated she drinks plenty of fluids and does not feel dehydrated despite what her labs today. She stated that she also has been shaky for several weeks. She endorses diarrhea, she stated it is chronic and unchanged. She also stated she was vomiting prior to admission at [facility] which resolved on discharge. She was dry heaving in ED here but that resolved with Zofran. She denies current nausea. Patient denies fever, chills, headache, vision changes, rhinorrhea, sore throat, cough, sputum production, dyspnea, dyspnea on exertion, chest pain, abdominal pain, numbness, tingling. Patient does not use nicotine products or drink alcohol. She denies past history of previous VTE or DM. She stated she does have oxygen as needed at home for on exertion however she has not used in a long time. She did not get her evening medications, ordered on admission. She wishes to be full code after long discussion with patient and her family, she would not want mechanical ventilation or prolonged CPR. She is agreeable to attempting CPR if found to have no pulse. Reviewed patient's pertinent chart from [facility]. Appears patient presented to the emergency room secondary to complaints of shoulder and neck pain, weakness, and fatigue. Noted that she had COVID in the past and was formally on oxygen however never formally diagnosed with acute hypoxemia. Her son works for a [employer] and was giving her supplemental oxygen through his company on an as-needed basis. Note stated she was hypoxic and chest CTA revealed bilateral atelectasis. They completed a walking pulse ox to next which qualified her for home oxygen of 2L on exertion. She was found to have a low potassium which noted to be repleted. They noted the patient does have a history of gout however is not on any medications, she was treated with IV steroids for right wrist pain and sent with a Medrol Dosepak on discharge. She was discharged with home health. Patient's white count 12.7 on 11/08/2024. Creatinine 0.8 on 11/08/2024. Of note patient's granddaughter is a nurse here and stated that patient is not doing well at home due to the weakness and dizziness. Allergies Allergy/AdvReac Type Severity Reaction Status Date / Time amoxicillin [From Augmentin] Allergy Severe Anaphylaxis Verified 10/30/22 10:55 cefuroxime Allergy Severe Anaphylaxis Verified 10/30/22 10:55 clarithromycin Allergy Severe Anaphylaxis Verified 10/30/22 10:55 clavulanic acid Allergy Severe Anaphylaxis Verified 10/30/22 10:55 [From Augmentin] erythromycin base Allergy Severe Anaphylaxis Verified 10/30/22 10:55 Penicillins Allergy Severe Anaphylaxis Verified 10/30/22 10:55 phenobarbital Allergy Severe Anaphylaxis Verified 10/30/22 10:55 Home Medications Medication Instructions Recorded Confirmed Type aspirin 81 mg tablet,delayed 81 mg PO QAM 02/25/22 11/19/24 History release atorvastatin 80 mg tablet 80 mg PO HS 02/25/22 11/19/24 History cyanocobalamin (vitamin B-12) 1,000 mcg subcut .EVERY 3 WEEKS 02/25/22 11/19/24 History 1,000 mcg/mL injection solution ferrous sulfate 325 mg (65 mg 325 mg PO QAM 02/25/22 11/19/24 History iron) tablet (iron) naproxen 500 mg tablet 500 mg PO DAILY PRN Back Pain 02/25/22 11/19/24 History omega 4-qlr-vsy-fish oil 1,000 mg 1 cap PO HS 02/25/22 11/19/24 History (120 mg-180 mg) capsule (Fish Oil) paroxetine HCl 20 mg tablet 20 mg PO HS 02/25/22 11/19/24 History tolterodine 4 mg capsule,extended 4 mg PO HS 02/25/22 11/19/24 History release 24 hr vit C 250 mg-vit E 90 mg-zinc 40 1 tab PO DAILY ##0 02/25/22 11/19/24 History mg-copper 1 [id number] capsule (PreserVision AREDS-2) carvedilol 25 mg tablet 25 mg PO BID 04/04/22 11/19/24 History sacubitril 24 mg-valsartan 26 mg 1 tab PO BID 04/04/22 11/19/24 History tablet (Entresto) furosemide 40 mg tablet (Lasix) 20 mg PO MOWEFR 09/16/22 11/19/24 History pantoprazole 40 mg tablet,delayed 40 mg PO BID 90 days #180 tabs 10/24/22 11/19/24 Rx release (Protonix) calcium carbonate 600 mg PO DAILY 11/19/24 11/19/24 History diclofenac sodium 1 % topical gel 2 g topical QID PRN Pain 11/19/24 11/19/24 History tramadol 50 mg tablet 50 mg PO Q6H PRN Pain 11/19/24 11/19/24 History Past Med/Surg History Problem List (Updated 11/19/24 @ 20:35 by Chino Campos MD) Myalgia Abnormal TSH Hypotension Leukocytosis Swelling of right wrist Dehydration Dizziness (Acute) CHI (closed head injury) (Acute) Fall (Acute) Generalized weakness (Acute) Chronic cough GERD (gastroesophageal reflux disease) Weakness (Acute) Urinary tract infection (Acute) Hypomagnesemia (Acute) Hyperlipidemia MCHUGH (dyspnea on exertion) Hyponatremia Acute respiratory failure with hypoxia NYHA class 3 heart failure with preserved ejection fraction, with improvement of ejection fraction from prior measurement Bacteremia Dyspnea (Acute) Failure of outpatient treatment (Acute) Rhinovirus infection GERD (gastroesophageal reflux disease) Aspiration pneumonitis Lung nodule Hiatal hernia Chronic heart failure with preserved ejection fraction CAD (coronary artery disease) Urinary incontinence Anemia Hiatal hernia Cardiomyopathy follows with Dr. Asher in [place], [place] Medical History (Updated 11/19/24 @ 20:35 by Chino Campos MD) Osteoarthritis Frequent UTI Hearing deficit Chronic cough intermittent since pt had covid History of COVID-19 x3---last 07/2021--moderate symptoms (bronchitis--uses oxygen/nebulizer during the time)--still has mild SOB/cough intermittently On home oxygen therapy 2L N/C PRN for SOB/sickness Spinal stenosis Valvular heart disease High cholesterol Surgical History History of lumpectomy of left breast removal of calcium deposit History of bilateral breast reduction surgery History of colonoscopy History of tooth extraction all teeth removed History of blepharoplasty History of cardiac cath multiple, no stents placed--last 2018 H/O: hysterectomy History of appendectomy History of cholecystectomy Family History Other No family history of adverse response to anesthesia Social History Smoking Status: Never smoker Second Hand Exposure: No; Do You Dip or Chew Tobacco: No; Hx Alcohol Use: No Hx Substance Use: No Preferred Language: Nepalese Communication Ability: Effective Communication Ability Comment: pt can sign own consents Hand Sewer Required: No Beliefs That Will Affect Care: None marital status: / Current Living Situation: Alone How many Children do You have: 4 Feels Safe at Home: Yes Safety Concerns: Feels Safe At This Time Assistive Devices: Denture - Upper, Denture - Lower and Glasses Review of Systems Review of Systems: See HPI Physical Exam Physical Exam: The patient is awake, alert and oriented 3, well developed and well nourished, normocephalic and atraumatic, in no acute distress. Non-toxic appearing. HEENT- EOMI, mucous membranes dry. Hearing grossly intact. Heart-normal S1 and S2. No murmurs, rubs or gallops. Lungs-clear bilaterally, no respiratory distress, no accessory muscle use. Abdomen-normal bowel sounds and soft. No ascites noted. Non-tender. Extremities- no clubbing, cyanosis, or edema. Psychiatric-normal affect. Results & Data Results & Data Vital Signs (Past 12 Hours) Vital Signs Temp Pulse Pulse Resp BP BP Pulse Ox 11/19/24 00:31 64 18 105/60 95 11/19/24 00:31 11/18/24 21:31 60 19 113/82 97 11/18/24 21:24 61 11/18/24 20:59 36.6 C 64 18 101/59 L 96 O2 Del Method 11/19/24 00:31 Room Air 11/19/24 00:31 Room Air 11/18/24 21:31 Room Air 11/18/24 21:24 11/18/24 20:59 Room Air Laboratory Results reviewed CBC, CMP, magnesium, troponin, BNP, TSH, free T4, UA Diagnostic Findings reviewed head CT and cervical spine CT Medications Administered EDmeclizine, Zofran, 1L NSS at 125 mL/hour ECG Additional Comments: NSR, LBBB Code Status & VTE Plan Code Status full code VTE Prophylaxis Plan VTE Prophylaxis will be ordered: Yes Supervising Physician Co-Signing Physician Notes Attending addendum: I have physically seen this patient, have supervised the BETTYE's activities, and agree with the H&P unless as otherwise noted. Assessment and Plan: The patient is a 89-year-old female with past medical history including cardiomyopathy, GERD, heel hernia, and anemia. She presents to the emergency department due to dizziness leading to fall, resulting in her head striking the bathtub earlier this evening. She complains of fatigue, generalized weakness and shakiness for the past several weeks. [facility]. #Dizziness status post fall- The patient will be admitted to telemetry for serial cardiac enzymes, serial EKG's, cardiac rhythm monitoring and a 2-D echocardiogram with Dopplers. CT head and cervical spine are negative EKG with normal sinus rhythm with left bundle branch block Troponin of 13.1 with follow-up pending Consult PT/OT Order stress echocardiogram Order sedimentation rate, ANIKET, rheumatoid factor Dehydration/hypotension/hyponatremia hold- Naproxen and Entresto Zofran 4 mg IV every 6 hours as needed NSS at 125 mL/h x 1 L Orthostatic vital signs Hold carvedilol and furosemide Remaining orders and notations as noted PG Care Time/CCT Total # of Minutes Spent Total Time Spent with Patient: Total time spent is greater than 50% in coordination of care (as documented) at patient's floor/unit and/or counseling patient: Coding Level of Care Code 45686 INT INP/OBS CARE 75MIN Diagnoses Dizziness R42 Generalized weakness R53.1 Fall W19.XXXA Dehydration E86.0 Hypotension I95.9 Hyponatremia E87.1 Swelling of right wrist M25.431 Leukocytosis D72.829 Cardiomyopathy I42.9 Chronic heart failure with preserved ejection fraction I50.32
--- NOTE | 2024-11-19 00:56 | CT Scan Report ---
Exam(s): CT C SPINE EXAM: CT Cervical Spine Without Intravenous Contrast CLINICAL HISTORY: Reason for exam: fall. TECHNIQUE: Axial computed tomography images of the cervical spine without intravenous contrast. CTDI is 23.18 mGy and DLP is 466.85 mGy-cm. Automated exposure control was utilized for the study. A dose lowering technique was utilized adhering to the principles of ALARA. COMPARISON: No relevant prior studies available. FINDINGS: Vertebrae: Unremarkable. No acute fracture. Discs/spinal canal/neural foramina: No acute findings. No spinal canal stenosis. Soft tissues: Unremarkable. IMPRESSION: No evidence of acute cervical spine pathology. Electronically signed by: Nya Chen MD 11/19/24 00:56 AM
--- NOTE | 2024-11-19 01:14 | CT Scan Report ---
Exam(s): CT HEAD Without Contrast EXAM: CT Head Without Intravenous Contrast CLINICAL HISTORY: Reason for exam: fall. TECHNIQUE: Axial computed tomography images of the head/brain without intravenous contrast. CTDI is 23.18 mGy and DLP is 466.85 mGy-cm. Automated exposure control was utilized for the study. A dose lowering technique was utilized adhering to the principles of ALARA. COMPARISON: Prior head CT from September 20, 2022. FINDINGS: Brain: Unremarkable. No hemorrhage. Mild to moderate nonspecific white matter changes.. No edema. Ventricles: Unremarkable. No ventriculomegaly. Bones/joints: Unremarkable. No acute fracture. Soft tissues: Unremarkable. Sinuses: Chronic left maxillary and ethmoid sinusitis. No acute sinusitis. Mastoid air cells: Unremarkable as visualized. No mastoid effusion. IMPRESSION: No evidence of acute intracranial pathology. Electronically signed by: Nya Chen MD 11/19/24 01:13 AM
[2024-11-19] MEDS ORDERED: ACETAMINOPHEN 325 MG TAB PO PRN (02:12)
[2024-11-19] MEDS ORDERED: MECLIZINE 12.5 MG TAB PO PRN (02:12)
[2024-11-19] MEDS ORDERED: DOCUSATE SODIUM 100 MG CAP PO PRN (02:12)
[2024-11-19 02:34] LABS: Uric Acid 5.9 mg/dl (2.6-7.2)
--- NOTE | 2024-11-19 02:42 | Advance Care Plan Prog Note ---
Advanced Care Planning Note Date of Discussion November 19, 2024 ACP Discussion Diagnoses requiring ACP discussion: Generalized weakness, fall, cardiomyopathy A [id number] discussion with the patient, her daughter, and her son regarding the patient's advanced care planning took place during this hospitalization on the above date. The discussion included the explanation and discussion of advance directives and associated forms/documents, as well as the patient's current code status. We also discussed at length the patient's medical conditions (both acute and chronic), general prognosis, treatment options, and goals of care. The following summarizes the discussion: After discussion with patient and her family, patient wishes to be full code. The patient's son has her advance directive on file and stated that she wishes to be full code but would not want mechanical ventilation or prolonged CPR. She would want CPR and intubation if needed in the short-term setting however if CPR had to go on for a long course, would want it discontinued. She would not want any form of ventilation. she would like for her son and daughter to make decisions for her if she is unable to. Advance Care Planning/Goals of Care Continue current evaluation & management of any acute/chronic issues and Will continue to support the patient/family DPOA-HC/Surrogate Decision Maker patient's son and daughter Status Resuscitation Status Full Code Total Time I spent a total of 30 minutes was spent on this discussion, including counseling, answering questions, and completing, if any, pertinent advanced care planning forms/documents.
[2024-11-19 04:34] LABS: Basophils # (auto) 0.03 K/uL (0.00-0.20); Basophils % (auto) 0.3 %; Eosinophils # (auto) 0.19 K/uL (0.00-0.50); Eosinophils % (auto) 1.6 %; Hematocrit (blood only) 32.8 % (37.0-47.0); Hemoglobin 10.8 g/dl (12.0-16.0); Immature Granulocytes % (auto) 0.9 %; Lymphocytes % (auto) 26.4 %; Mean Corpuscular Hemoglobin 30.3 pg (25.0-34.0); Mean Corpuscular Hgb Conc 32.9 g/dL (32.0-36.0); Mean Corpuscular Volume 92.1 fL (80.0-100.0); Mean Platelet Volume 9.5 fL (9.4-12.4); Monocytes # (auto) 1.11 K/uL (0.11-0.59); Monocytes % (auto) 9.5 %; Neutrophils % (auto) 61.3 %; Platelet Count 213 K/uL (130-400); RDW Coefficient of Variation 13.5 % (11.5-14.5); RDW Standard Deviation 45.4 fL (36.4-46.3); Red Blood Count 3.56 M/uL (4.20-5.40); White Blood Count 11.73 K/ul (4.8-10.8)
[2024-11-19 04:52] LABS: BUN Creatinine Ratio 16.5 (10-20); Calcium 8.1 mg/dl (8.6-10.3); Magnesium 2.1 mg/dl (1.7-2.4); Potassium 4.4 mmol/L (3.5-5.1)
[2024-11-19 09:01] LABS: C Reactive Protein 3.47 mg/dl (0-0.5)
[2024-11-19] MEDS: PANTOprazole 40 MG TAB PO SCH (09:34)
[2024-11-19] MEDS: ASPIRIN 81 MG ECTAB PO SCH (09:34)
[2024-11-19] MEDS: FERROUS SULFATE 325 MG TAB PO SCH (09:34)
[2024-11-19 11:12] LABS: Influenza A virus by PCR Negative (Neg); Influenza B virus by PCR Negative (Neg); RSV by PCR Negative (Neg); SARS CoV2 RNA(COVID-19) Ceph NEGATIVE (Negative)
[2024-11-19] MEDS: traMADol HCL 50 MG TABLET PO PRN (13:11)
--- NOTE | 2024-11-19 14:51 | XCELERA ---
[id number]
--- NOTE | 2024-11-19 15:01 | Hospitalist Progress Note ---
Date of Service November 19, 2024 Assessment & Plan (1) Myalgia: Plan: the patient has had numerous systemic symptoms for at least 2 weeks, possibly as long as 4 weeks, including but not limited to headaches, diffuse upper body myalgias, fatigue/weakness, poor appetite, GI intolerance (nausea, etc), weight loss, dizziness, shakiness/tremors, and recent fever (which occurred just prior to her hospital stay at [facility] about 1 week ago) by her history she seemed to have had rapid improvement in her fatigue/weakness/upper body myalgias with IV steroids while at [facility] unfortunately there were no baseline inflammatory markers drawn while at the outside hospital I called to the lab at [facility] today and no blood cx's were sent during that hospitalization she was COVID/flu/RSV negative at this point I am concerned about either PMR and/or temporal arteritis vs some other autoimmune disease I cannot rule out occult infection given the recent fever, leukocytosis, etc. although her sed rate is normal and CRP is only mildly elevated at 3 it is very possible that the sed rate/crp were much higher prior to recent steroid use plan - * draw 2 sets of blood cx's * check lyme screen * check babesia/anaplasmosis screens * prednisone 20mg po x 1 --> if she has rapid improvement in her myalgias by tomorrow this would be highly suggestive of PMR * if headaches persist despite low-dose prednisone would need to increase prednisone to 40-60mg/day and obtain temporal artery bx to r/o TA * there can be considerable "overlap" between TA & PMR * cont IV fluids - I do feel she was volume contracted upon presentation leading to low BP with sitting/standing & her dizziness * SBP was in the 90s while sitting yesterday evening * hold Entresto, lasix, etc. * await echo results * check B12/CPK Consider MRI brain ANIKET & RF are sent/pending (2) Dizziness: Plan: 2nd to volume contraction/low BP improving nothing to suggest vertigo either of central or peripheral etiology (3) Generalized weakness: Plan: see #1 (4) Fall: Plan: fortunately no obvious injuries from such had head strike - CT head neg; CT c-spine neg (5) Dehydration: Plan: improving cont IV fluids; can reduce rate to 50ml/hr (6) Hypotension: Plan: improved (7) Hyponatremia: Plan: likely 2nd volume contraction repeat BMP am (8) Swelling of right wrist: Plan: possibly had gout or pseudogout attack while at [facility] recently responded rapidly to prednisone therapy no active synovitis on exam today (9) Leukocytosis: Plan: 2nd to occult infection? 2nd to recent medrol dosepack? blood cx's x 2 sets (10) Cardiomyopathy: Plan: await echo no evidence of decompensated CHF (11) Chronic heart failure with preserved ejection fraction: (12) Abnormal TSH: Plan: this will need repeating in about 4 weeks as outpatient even if she indeed has hypothyroidism it would not explain her wide variety of symptoms (13) CAD (coronary artery disease): Plan: non-obstructive 2018 heart cath - <30% non-obstructive CAD in all major and minor vessels (14) Hiatal hernia: Plan: large known issue dating back several years cont PPI Plan grand-daughter updated at bedside extensively will need PT/OT Admission and Anticipated Discharge Date Admission Date: November 19, 2024 Subjective saw patient in the ER as she had yet to get a bed on the floor pt's grand-daughter Josephine was at bedside the patient mentioned a host of symptoms over the last 2 weeks, and potentially even the last 4 weeks -- * fatigue with excessive sleeping * headaches; "I never get headaches" * myalgia - severe - extending from the upper chest to both shoulders to the upper back and posterior neck, then radiating to the rest of the head * pt's grand-daughter states that recently the pt's upper body was exquisitely tender to touch * headaches at times are over both temples * "shakiness" - tremors of arms, and also an internal feeling of "shakiness" / cold sensation (she points to her chest as the location) * dizziness/lightheadedness * poor appetite - ?near-10 pounds of weight loss last month * weakness of legs but no myalgias of legs while hospitalized at [facility] she was placed on steroids for ?gout of the right wrist & hand she had rapid improvement (24 hours) in her wrist/hand symptoms however, she also had what sounds like rapid improvement in her upper body/neck/head discomfort she mentions "that tramadol really helps my pain" she was released from [facility] last Friday or Friday; was discharged on a steroid taper by mid-week was feeling poor again "I Missed Bingo because of that" she had fever to 101 degrees when she entered [facility] over a week ago grand-daughter furnished some records from that hospital visit - COVID/flu/RSV neg WBC count was >12 ferritin level was elevated I did not see inflammatory markers or blood cultures pt's grand-daughter mentions there is strong famhx of thyroid disease & autoimmune disease including scleroderma Physical Exam Physical Exam: gen - lying in bed comfortably, NAD; awake/alert head - nontender to palpation over any location or the temporal arteries neck - cyst vs small lymph node posterior cervical chain on right; no fixed or firm lymphadenopathy; no thyroid nodules or goiter mouth - MM dry heart - RRR, s1 s2 lungs - CTA b/l abd - soft NT ND BS+ ext - no peripheral edema, pulses b/l feet 2+ musculo - OA changes of multiple fingers especially the thumb/wrist joint b/l; no active synovitis of any upper ext joint or lower ext joint; restricted active ROM of the right shoulder, left shoulder with better ROM neuro - minimal tremor of arms; no facial droop; moves all 4 limbs skin - no rash Results & Data Results & Data Vital Signs (Past 12 Hours) Vital Signs Pulse Pulse Resp BP Pulse Ox O2 Del Method O2 Flow Rate 11/19/24 11:37 68 18 124/65 92 Nasal Cannula 2 11/19/24 11:00 Room Air 11/19/24 09:33 77 22 120/67 93 Room Air 11/19/24 07:56 66 20 116/85 95 Nasal Cannula 2 11/19/24 07:26 66 Laboratory Results Laboratory Results - last 24 hr 11/18/24 11/18/24 11/19/24 21:16 22:35 04:17 WBC 13.03 H 11.73 H RBC 4.11 L 3.56 L Hgb 12.5 10.8 L Hct 37.7 32.8 L MCV 91.7 92.1 MCH 30.4 30.3 MCHC 33.2 32.9 RDW Std Deviation 45.4 45.4 RDW Coeff of [place] 13.7 13.5 Plt Count 281 213 MPV 10.0 9.5 Immature Gran % (Auto) 1.1 0.9 Neut % (Auto) 63.1 61.3 Lymph % (Auto) 24.5 26.4 [place] % (Auto) 9.7 9.5 Eos % (Auto) 1.4 1.6 Baso % (Auto) 0.2 0.3 Neut # (Auto) 8.22 H 7.20 H Lymph # (Auto) 3.19 3.10 [place] # (Auto) 1.27 H 1.11 H Eos # (Auto) 0.18 0.19 Baso # (Auto) 0.03 0.03 Immature Gran # (Auto) 0.14 0.10 ESR 27 Sodium 131 L 132 L Potassium 4.8 4.4 Chloride 97 L 102 Carbon Dioxide 27 27 Anion Gap 7 3 BUN 22 19 Creatinine 1.28 H 1.15 Est Cr Clr Drug Dosing 28.7 32.0 eGFR 41.05 46.68 BUN/Creatinine Ratio 17.2 16.5 Glucose 85 87 Uric Acid 5.9 Calcium 8.7 8.1 L Magnesium 2.2 2.1 Total Bilirubin 0.8 AST 12 L ALT 14 Alkaline Phosphatase 110 H Total Creatine Kinase Troponin I High Sens 13.1 C-Reactive Protein 3.47 H B-Natriuretic Peptide 28 Total Protein 6.7 Albumin 3.8 Globulin 2.9 Albumin/Globulin Ratio 1.3 Vitamin B12 TSH 9.515 H Free T4 1.11 Urine Color Yellow Urine Appearance Clear Urine pH >= 9.0 H Ur Specific [place] 1.015 Urine Protein Trace H Urine Glucose (UA) Negative Urine Ketones Negative Urine Blood Negative Urine Nitrite Negative Urine Bilirubin Negative Urine Urobilinogen Negative Ur Leukocyte Esterase Negative Urine WBC (Auto) 0-5 Urine RBC (Auto) 0-2 U Hyaline Cast (Auto) 0-2 U Epithel Cells (Auto) 0-2 Urine Bacteria (Auto) None Seen Rheumatoid Factor Pending ANIKET Screen Pending Anaplasma Smear Babesia Smear Lyme Disease Screen SARS-CoV-2 (PCR) Influenza Type A (PCR) Influenza Type B (PCR) RSV (RT-PCR) 11/19/24 11/19/24 10:18 15:41 WBC RBC Hgb Hct MCV MCH MCHC RDW Std Deviation RDW Coeff of [place] Plt Count MPV Immature Gran % (Auto) Neut % (Auto) Lymph % (Auto) [place] % (Auto) Eos % (Auto) Baso % (Auto) Neut # (Auto) Lymph # (Auto) [place] # (Auto) Eos # (Auto) Baso # (Auto) Immature Gran # (Auto) ESR Sodium Potassium Chloride Carbon Dioxide Anion Gap BUN Creatinine Est Cr Clr Drug Dosing eGFR BUN/Creatinine Ratio Glucose Uric Acid Calcium Magnesium Total Bilirubin AST ALT Alkaline Phosphatase Total Creatine Kinase 39 Troponin I High Sens C-Reactive Protein B-Natriuretic Peptide Total Protein Albumin Globulin Albumin/Globulin Ratio Vitamin B12 430 TSH Free T4 Urine Color Urine Appearance Urine pH Ur Specific [place] Urine Protein Urine Glucose (UA) Urine Ketones Urine Blood Urine Nitrite Urine Bilirubin Urine Urobilinogen Ur Leukocyte Esterase Urine WBC (Auto) Urine RBC (Auto) U Hyaline Cast (Auto) U Epithel Cells (Auto) Urine Bacteria (Auto) Rheumatoid Factor ANIKET Screen Anaplasma Smear See Comment Babesia Smear See Comment Lyme Disease Screen Negative SARS-CoV-2 (PCR) NEGATIVE Influenza Type A (PCR) Negative Influenza Type B (PCR) Negative RSV (RT-PCR) Negative PG Care Time/CCT Total # of Minutes Spent Total Time Spent with Patient: Total time spent is greater than 50% in coordination of care (as documented) at patient's floor/unit and/or counseling patient: Coding Level of Care Code None Diagnoses Myalgia M79.10 Dizziness R42 Generalized weakness R53.1 Fall W19.XXXA Dehydration E86.0 Hypotension I95.9 Hyponatremia E87.1 Swelling of right wrist M25.431 Leukocytosis D72.829 Cardiomyopathy I42.9 Chronic heart failure with preserved ejection fraction I50.32 Abnormal TSH R79.89 CAD (coronary artery disease) I25.10 Hiatal hernia K44.9
[2024-11-19] MEDS: predniSONE 20 MG TAB PO STA (15:13)
[2024-11-19] MEDS: ATORVASTATIN 40 MG TAB PO SCH (21:08)
[2024-11-19] MEDS: PARoxetine HCL 20 MG TAB PO SCH (21:08)
[2024-11-19] MEDS: OXYBUTYNIN CHLORIDE XL 5 MG TABCR PO SCH (21:08)
--- NOTE | 2024-11-19 23:01 | Electrocardiogram Report ---
Test Reason : Blood Pressure : */* mmHG Vent. Rate : 61 BPM Atrial Rate : 61 BPM P-R Int : 200 ms QRS Dur : 156 ms QT Int : 452 ms P-R-T Axes : 101 -41 122 degrees QTcB Int : 455 ms Normal sinus rhythm Left axis deviation Left bundle branch block Abnormal ECG When compared with ECG of 20-Sep-2022 21:47, No significant change was found Confirmed by Eliot Sheikh ([id number]) on 11/19/2024 11:00:51 PM Referred By: REFERRED SELF Confirmed By: Eliot Sheikh
[2024-11-20 07:37] LABS: Basophils # (auto) 0.02 K/uL (0.00-0.20); Basophils % (auto) 0.2 %; Eosinophils # (auto) 0.01 K/uL (0.00-0.50); Eosinophils % (auto) 0.1 %; Hematocrit (blood only) 31.5 % (37.0-47.0); Hemoglobin 10.3 g/dl (12.0-16.0); Immature Granulocytes # (auto) 0.07 K/uL (0.01-0.20); Immature Granulocytes % (auto) 0.7 %; Lymphocytes # (auto) 2.12 K/uL (1.20-3.40); Lymphocytes % (auto) 19.7 %; Mean Corpuscular Hemoglobin 30.1 pg (25.0-34.0); Mean Corpuscular Hgb Conc 32.7 g/dL (32.0-36.0); Mean Corpuscular Volume 92.1 fL (80.0-100.0); Mean Platelet Volume 10.1 fL (9.4-12.4); Monocytes % (auto) 6.5 %; Neutrophils # (auto) 7.84 K/uL (1.40-6.50); Neutrophils % (auto) 72.8 %; Platelet Count 212 K/uL (130-400); RDW Coefficient of Variation 13.3 % (11.5-14.5); Red Blood Count 3.42 M/uL (4.20-5.40); White Blood Count 10.76 K/ul (4.8-10.8)
[2024-11-20 07:52] LABS: BUN Creatinine Ratio 13.8 (10-20); Creatinine Clr Calc Pharmacy 39.4 ml/min; Potassium 5.1 mmol/L (3.5-5.1)
--- NOTE | 2024-11-20 13:23 | Hospitalist Progress Note ---
Date of Service November 20, 2024 Assessment & Plan (1) Myalgia: (2) Headache: Plan (1) Myalgia: the patient has had numerous systemic symptoms for at least 2 weeks, possibly as long as 4 weeks, including but not limited to headaches, diffuse upper body myalgias, fatigue/weakness, poor appetite, GI intolerance (nausea, etc), weight loss, dizziness, shakiness/tremors, and recent fever (which occurred just prior to her hospital stay at [facility] about 1 week ago) by her history she seemed to have had rapid improvement in her fatigue/weakness/upper body myalgias with IV steroids while at [facility] right wrist & right hand arthropathy also resolved rapidly with steroids unfortunately there were no baseline inflammatory markers drawn while at the outside hospital she was COVID/flu/RSV negative during that stay at this point I am concerned about either PMR and/or temporal arteritis (overlap) vs some other autoimmune disease I cannot rule out occult infection given the recent fever, leukocytosis, etc. although her sed rate is normal and CRP is only mildly elevated at 3 it is very possible that the sed rate/crp were much higher prior to recent steroid use (she was on IV steroids at [facility], then sent home on Medrol dose pack) today she is MARKEDLY improved with all symptoms following a single dose of 20mg prednisone yesterday this is especially suggestive of PMR blood cx's remain negative lyme was negative babesia/anaplasmosis screens were negative B12/CPK were both normal MRI brain w/o acute findings; no CVA, no ICH, etc. 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 ANIKET & RF sent/pending plan - keep prednisone but increase to 40mg to cover for possibility of temporal arteritis; consult gen surg for TA bx; if bx returns negative can stop higher-dose prednisone, reduce prednisone to 10mg/day to Rx suspected PMR, then send to rheumatology post-d/c plan d/w pt's family at bedside today (2) Dizziness: 2nd to volume contraction/low BP resolved although technically still mildly orthostatic today (BP drop about 24 pts with standing) she is asymptomatic nothing to suggest vertigo either of central or peripheral etiology will try to restart low-dose coreg tomorrow hold Entresto - EF is normal hold lasix (3) Generalized weakness: Markedly improved s/p prednisone 20mg x 1 see #1 (4) Fall: fortunately no obvious injuries from such had head strike - CT head neg; CT c-spine neg MRI brain and MRI c-spine w/o acute findings (5) Dehydration: resolved s/p IV fluids (6) Hypotension: resolved s/p IV fluids and holding multiple BP lowering meds (coreg, Entresto, etc) (7) Hyponatremia: 2nd volume contraction s/p isotonic fluids; Na level wnl today (8) Swelling of right wrist: possibly had gout or pseudogout attack while at [facility] recently responded rapidly to steroid therapy there no active synovitis on exam today (9) Leukocytosis: 2nd to occult infection? 2nd to recent medrol dosepack? 2nd to autoimmune or inflammatory disease? WBC count wnl today (10) Cardiomyopathy: EF preserved on echo this admission no evidence of decompensated CHF try to resume coreg tomorrow hold Entresto resume lasix on Friday (takes //) (11) Chronic heart failure with preserved ejection fraction: (12) Abnormal TSH: this will need repeating in about 4 weeks as outpatient even if she indeed has hypothyroidism it would not explain her wide variety of symptoms (weight loss, headaches, fever, etc) (13) CAD (coronary artery disease): non-obstructive 2018 heart cath - <30% non-obstructive CAD in all major and minor vessels (14) Hiatal hernia: large known issue dating back several years cont PPI family extensively updated at bedside today including 2 daughters & grand- daughter care d/w gen surg by Иван Correspondence Admission and Anticipated Discharge Date Admission Date: November 19, 2024 Subjective tele overnight wnl patient feeling much better today pain in head/neck resolved pain in upper body resolved eating robustly energy improved no joint pains still some mild tenderness over the temporal artery areas but otherwise no further headaches denies any new complaints during a 2nd visit later in the day her 2 daughters & grand-daughter were updated extensively at bedside we discussed ?PMR dx and getting a temporal artery bx to r/o TA just to be safe discussed continuing prednisone while awaiting other labs (ANIKET, RF, etc) discussed MRI results (severe DJD c-spine; negative MRI brain) Review of Systems Review of Systems: gen - no fevers or chills neuro - no dizziness or lightheadedness GI - no nausea/emesis/pain CV - no chest pain pulm - no dyspnea Physical Exam Physical Exam: gen - looks much better today head - minimal-mild tenderness right temporal artery neck - no JVD mouth - MMM heart - RRR, s1 s2, 1/6 systolic murmur LSB lungs - CTA b/l abd - soft NT ND BS+ ext - no peripheral edema, pulses b/l feet 2+ musculo - OA changes of multiple fingers especially the thumb/wrist joint b/l; no active synovitis of any upper ext joint or lower ext joint neuro - mild tremor of arms Results & Data Results & Data Vital Signs (Past 12 Hours) Vital Signs Temp Pulse Pulse Resp BP Pulse Ox O2 Del Method 11/20/24 11:20 36.6 C 70 18 120/67 92 Room Air 11/20/24 08:31 73 11/20/24 07:35 36.7 C 76 20 130/77 93 Room Air 11/20/24 02:12 36.8 C 74 16 149/80 H 95 Room Air Laboratory Results Laboratory Results - last 24 hr 11/20/24 06:49 WBC 10.76 RBC 3.42 L Hgb 10.3 L Hct 31.5 L MCV 92.1 MCH 30.1 MCHC 32.7 RDW Std Deviation 45.0 RDW Coeff of [place] 13.3 Plt Count 212 MPV 10.1 Immature Gran % (Auto) 0.7 Neut % (Auto) 72.8 Lymph % (Auto) 19.7 [place] % (Auto) 6.5 Eos % (Auto) 0.1 Baso % (Auto) 0.2 Neut # (Auto) 7.84 H Lymph # (Auto) 2.12 [place] # (Auto) 0.70 H Eos # (Auto) 0.01 Baso # (Auto) 0.02 Immature Gran # (Auto) 0.07 Sodium 135 L Potassium 5.1 Chloride 105 Carbon Dioxide 27 Anion Gap 3 BUN 13 Creatinine 0.94 Est Cr Clr Drug Dosing 39.4 eGFR 59.46 BUN/Creatinine Ratio 13.8 Glucose 105 H Calcium 8.0 L Diagnostic Findings Brain MRI 11/20/24 13:22 HISTORY: Head pain. TECHNIQUE: Multiplanar multiecho MR imaging of the brain was performed without the use of IV contrast COMPARISON: Head CT dated 11/18/2024. FINDINGS: The cerebellar tonsils do not extend below the foramen magnum. The sella is not expanded. The included upper cervical spinal cord is unremarkable. No areas of restricted diffusion to suggest acute infarct. Patchy T2/FLAIR hyperintensity throughout the periventricular and subcortical white matter is nonspecific. There is moderate diffuse volume loss. No areas of susceptibility artifact to suggest acute intracranial hemorrhage. Ventricular caliber is appropriate. The fourth ventricle is midline. The basal cisterns are patent. The major intracranial flow voids are maintained. The globes and orbits are unremarkable. Soft tissues about the skull base and scalp are unremarkable. The paranasal sinuses and mastoid air cells are well aerated. IMPRESSION: 1. No evidence of acute intracranial hemorrhage, infarct, or mass effect. 2. Patchy T2/FLAIR hyperintensity involving the periventricular and subcortical white matter is nonspecific, but commonly attributed to chronic microvascular ischemic changes. Other differential considerations include demyelinating disease or other infectious or inflammatory etiologies. 3. Moderate diffuse volume loss. Electronically signed by Kuldip Christie 11-20-2024 3:15 PM Cervical Spine MRI 11/20/24 13:22 HISTORY: Pain radiating into the head. Neck pain. TECHNIQUE: Multiplanar multiecho MR imaging of the cervical spine was performed without the use of IV contrast. COMPARISON: None. FINDINGS: Cervical spine alignment is relatively well-preserved. The vertebral body heights are maintained without compression deformity. Degenerative endplate marrow changes are noted, which are most pronounced in the upper thoracic spine. The cervical spinal cord is normal in caliber and signal intensity. The included posterior fossa is unremarkable. The paraspinal and prevertebral soft tissues are unremarkable. The included lung apices are unremarkable. At C2-3: Mild degenerative disc disease and facet arthrosis. Mild central canal stenosis related to posterior disc osteophyte complex. Mild left neuroforaminal narrowing. The right neuroforamen is patent. At C3-4: Broad-based posterior disc osteophyte complex mildly narrows the central canal. Severe left and mild right neuroforaminal stenosis related uncovertebral and facet arthrosis. At C4-5: Mild degenerative disc disease. Broad-based posterior disc osteophyte complex mildly narrows the central canal. Mild bilateral neuroforaminal stenosis related to uncovertebral and facet arthrosis. At C5-6: Severe degenerative disc disease. Broad-based posterior disc osteophyte complex moderately narrows the central canal. Severe bilateral neuroforaminal stenosis related to uncovertebral and facet arthrosis. At C6-7: Severe degenerative disc disease. Broad-based posterior disc osteophyte complex mildly narrows the central canal. Moderate left neuroforaminal stenosis related to uncovertebral and facet arthrosis. Mild right neuroforaminal stenosis. At C6-7: Mild degenerative disc disease. No significant canal or foraminal stenosis. IMPRESSION: 1. Advanced multilevel degenerative spondylosis of the cervical spine as detailed above by level with varying degrees of central canal and neuroforaminal stenosis. Findings are most pronounced at C5-6 resulting in moderate central canal stenosis and severe bilateral neuroforaminal stenosis. 2. No cord edema or cord signal change. 3. Additional findings as above. Electronically signed by Kuldip Christie 11-20-2024 3:41 PM PG Care Time/CCT Total # of Minutes Spent Total Time Spent with Patient: Total time spent is greater than 50% in coordination of care (as documented) at patient's floor/unit and/or counseling patient: Coding Level of Care Code 25242 SUB INP/OBS CARE 3/50MIN Diagnoses Myalgia M79.10 Headache R51.9
[2024-11-20] MEDS: predniSONE 20 MG TAB PO STA (13:59)
--- NOTE | 2024-11-20 15:16 | Magnetic Resonance Report ---
HISTORY: Head pain. TECHNIQUE: Multiplanar multiecho MR imaging of the brain was performed without the use of IV contrast COMPARISON: Head CT dated 11/18/2024. FINDINGS: The cerebellar tonsils do not extend below the foramen magnum. The sella is not expanded. The included upper cervical spinal cord is unremarkable. No areas of restricted diffusion to suggest acute infarct. Patchy T2/FLAIR hyperintensity throughout the periventricular and subcortical white matter is nonspecific. There is moderate diffuse volume loss. No areas of susceptibility artifact to suggest acute intracranial hemorrhage. Ventricular caliber is appropriate. The fourth ventricle is midline. The basal cisterns are patent. The major intracranial flow voids are maintained. The globes and orbits are unremarkable. Soft tissues about the skull base and scalp are unremarkable. The paranasal sinuses and mastoid air cells are well aerated. IMPRESSION: 1. No evidence of acute intracranial hemorrhage, infarct, or mass effect. 2. Patchy T2/FLAIR hyperintensity involving the periventricular and subcortical white matter is nonspecific, but commonly attributed to chronic microvascular ischemic changes. Other differential considerations include demyelinating disease or other infectious or inflammatory etiologies. 3. Moderate diffuse volume loss. Electronically signed by Kuldip Christie 11-20-2024 3:15 PM
--- NOTE | 2024-11-20 15:42 | Magnetic Resonance Report ---
HISTORY: Pain radiating into the head. Neck pain. TECHNIQUE: Multiplanar multiecho MR imaging of the cervical spine was performed without the use of IV contrast. COMPARISON: None. FINDINGS: Cervical spine alignment is relatively well-preserved. The vertebral body heights are maintained without compression deformity. Degenerative endplate marrow changes are noted, which are most pronounced in the upper thoracic spine. The cervical spinal cord is normal in caliber and signal intensity. The included posterior fossa is unremarkable. The paraspinal and prevertebral soft tissues are unremarkable. The included lung apices are unremarkable. At C2-3: Mild degenerative disc disease and facet arthrosis. Mild central canal stenosis related to posterior disc osteophyte complex. Mild left neuroforaminal narrowing. The right neuroforamen is patent. At C3-4: Broad-based posterior disc osteophyte complex mildly narrows the central canal. Severe left and mild right neuroforaminal stenosis related uncovertebral and facet arthrosis. At C4-5: Mild degenerative disc disease. Broad-based posterior disc osteophyte complex mildly narrows the central canal. Mild bilateral neuroforaminal stenosis related to uncovertebral and facet arthrosis. At C5-6: Severe degenerative disc disease. Broad-based posterior disc osteophyte complex moderately narrows the central canal. Severe bilateral neuroforaminal stenosis related to uncovertebral and facet arthrosis. At C6-7: Severe degenerative disc disease. Broad-based posterior disc osteophyte complex mildly narrows the central canal. Moderate left neuroforaminal stenosis related to uncovertebral and facet arthrosis. Mild right neuroforaminal stenosis. At C6-7: Mild degenerative disc disease. No significant canal or foraminal stenosis. IMPRESSION: 1. Advanced multilevel degenerative spondylosis of the cervical spine as detailed above by level with varying degrees of central canal and neuroforaminal stenosis. Findings are most pronounced at C5-6 resulting in moderate central canal stenosis and severe bilateral neuroforaminal stenosis. 2. No cord edema or cord signal change. 3. Additional findings as above. Electronically signed by Kuldip Christie 11-20-2024 3:41 PM
--- NOTE | 2024-11-20 20:17 | Surgery Consultation ---
<Statement entered by Jese Newman, - 11/21/24 10:45> I saw the patient this am and agree with this PA's assessment in that the patient denies any significant headaches with me either. Similar to the PA's report, she admitted to occasional soreness she would note at the cheondoism areas just when she would rub there but no real headaches and no associated visual disturbance. Similarly she c/o weakness, tremors along with shoulder, back and neck pain. As of this am, she is not amenable to having her temporal artery biopsied and is currently denying symptoms that would warrant it. The medical service states they have gathered other information from the patient with her daughters and will follow with surgery with updates or changes. Date of Consultation November 20, 2024 Assessment & Plan (1) Myalgia: The patient is an 83-year-old female who was admitted to the hospital on 11/19/2024 with concerns of fall and ongoing generalized weakness, dizziness, intermittent headaches, upper body myalgias, and tremors for a few weeks. The patient is currently undergoing extensive workup by the medical service and general surgery was consulted for possibly temporal arteritis. The patient denies any "headaches" however states at times she does get pain near her b/l temporal region along with pains extending down into her neck and shoulder. The patient denies any visual disturbances or facial pain. Sed rate was found to be normal and CRP which is only mildly elevated at 3. Patient has also undergone CT and MRI of her head and neck which did not reveal any acute findings. I did discuss with the patient about the possibility about temporal artery biopsy to further evaluate for TA. At this time the patient states she is not sure about undergoing any procedure due to her age and cardiac history. I told the patient I will discuss her case with attending surgeon, Dr. Newman, and will provide further recommendations. If patient does warrant biopsy, would recommend holding ASA 11/21/2024. History of Present Illness Reason for Consultation: Possible temporal arteritis History of Present Illness The patient is an 83-year-old female who was admitted to the hospital on 11/19/2024 with concerns of fall and generalized weakness. The patient states she had gotten dizzy which caused her to fall in her bathroom, striking her head off of the bathtub at the time. She also states that for the last 4 or so weeks she has been feeling fatigued and ongoing weakness. The patient has also been complaining of intermittent headaches, upper body myalgias, tremors, and recent fever. The patient is currently undergoing cardiac workup and has had labs drawn to further evaluate ongoing systemic symptoms including a sed rate which was found to be normal and CRP which is only mildly elevated at 3. However given her ongoing symptoms general surgery was consulted for concerns of possible temporal arteritis. The patient was seen and evaluated this evening at bedside. She is resting comfortably, VSS, and NAD. The patient denies "headaches" however tells me she does at times get pain on both sides of her head. She denies any changes in vision when this happens. She also denies any jaw pain. Patient states she also has been experiencing pain that radiates down her neck and into her shoulders which seems to be the most bothersome to her during my evaluation. Allergies Allergy/AdvReac Type Severity Reaction Status Date / Time amoxicillin [From Augmentin] Allergy Severe Anaphylaxis Verified 10/30/22 10:55 cefuroxime Allergy Severe Anaphylaxis Verified 10/30/22 10:55 clarithromycin Allergy Severe Anaphylaxis Verified 10/30/22 10:55 clavulanic acid Allergy Severe Anaphylaxis Verified 10/30/22 10:55 [From Augmentin] erythromycin base Allergy Severe Anaphylaxis Verified 10/30/22 10:55 Penicillins Allergy Severe Anaphylaxis Verified 10/30/22 10:55 phenobarbital Allergy Severe Anaphylaxis Verified 10/30/22 10:55 Home Medications Medication Instructions Recorded Confirmed Type aspirin 81 mg tablet,delayed 81 mg PO QAM 02/25/22 11/19/24 History release atorvastatin 80 mg tablet 80 mg PO HS 02/25/22 11/19/24 History cyanocobalamin (vitamin B-12) 1,000 mcg subcut .EVERY 3 WEEKS 02/25/22 11/19/24 History 1,000 mcg/mL injection solution ferrous sulfate 325 mg (65 mg 325 mg PO QAM 02/25/22 11/19/24 History iron) tablet (iron) naproxen 500 mg tablet 500 mg PO DAILY PRN Back Pain 02/25/22 11/19/24 History omega 3-fnx-ynf-fish oil 1,000 mg 1 cap PO HS 02/25/22 11/19/24 History (120 mg-180 mg) capsule (Fish Oil) paroxetine HCl 20 mg tablet 20 mg PO HS 02/25/22 11/19/24 History tolterodine 4 mg capsule,extended 4 mg PO HS 02/25/22 11/19/24 History release 24 hr vit C 250 mg-vit E 90 mg-zinc 40 1 tab PO DAILY ##0 02/25/22 11/19/24 History mg-copper 1 [id number] capsule (PreserVision AREDS-2) carvedilol 25 mg tablet 25 mg PO BID 04/04/22 11/19/24 History sacubitril 24 mg-valsartan 26 mg 1 tab PO BID 04/04/22 11/19/24 History tablet (Entresto) furosemide 40 mg tablet (Lasix) 20 mg PO MOWEFR 09/16/22 11/19/24 History pantoprazole 40 mg tablet,delayed 40 mg PO BID 90 days #180 tabs 10/24/22 Rx release (Protonix) calcium carbonate 600 mg PO DAILY 11/19/24 11/19/24 History diclofenac sodium 1 % topical gel 2 g topical QID PRN Pain 11/19/24 11/19/24 History tramadol 50 mg tablet 50 mg PO Q6H PRN Pain 11/19/24 11/19/24 History Patient History Medical History (Updated 11/20/24 @ 23:15 by Holly Richey PA-C) Osteoarthritis Frequent UTI Hearing deficit Chronic cough intermittent since pt had covid History of COVID-19 x3---last 07/2021--moderate symptoms (bronchitis--uses oxygen/nebulizer during the time)--still has mild SOB/cough intermittently On home oxygen therapy 2L N/C PRN for SOB/sickness Spinal stenosis Valvular heart disease High cholesterol Surgical History History of lumpectomy of left breast removal of calcium deposit History of bilateral breast reduction surgery History of colonoscopy History of tooth extraction all teeth removed History of blepharoplasty History of cardiac cath multiple, no stents placed--last 2018 H/O: hysterectomy History of appendectomy History of cholecystectomy Family History Other No family history of adverse response to anesthesia Social History Smoking Status: Never smoker Second Hand Exposure: No; Do You Dip or Chew Tobacco: No; Hx Alcohol Use: No Hx Substance Use: No Preferred Language: [place] Communication Ability: Effective Communication Ability Comment: pt can sign own consents Electrical Continuity Inspector Required: No Beliefs That Will Affect Care: None marital status: / Current Living Situation: Alone How many Children do You have: 4 Feels Safe at Home: Yes Safety Concerns: Feels Safe At This Time Assistive Devices: Glasses Review of Systems Review of Systems: All systems reviewed & are unremarkable except as noted in HPI & below Physical Exam Constitutional: WD/WN, vitals as above ENMT: Nontender to palpation over temporal artery region Respiratory: normal respiratory effort, lungs clear to auscultation Cardiovascular: Rate/Rhythm: regular rate Gastrointestinal (Abdomen): normal bowel sounds, soft, nontender, no hepatosplenomegaly Results & Data Vital Signs (Past 12 Hours) Vital Signs Temp Pulse Pulse Resp BP Pulse Ox O2 Del Method 11/20/24 19:20 36.6 C 82 18 137/81 95 Room Air 11/20/24 17:27 70 11/20/24 11:20 36.6 C 70 18 120/67 92 Room Air 11/20/24 08:31 73 Diagnostic Findings Exam(s): CT HEAD Without Contrast EXAM: CT Head Without Intravenous Contrast CLINICAL HISTORY: Reason for exam: fall. TECHNIQUE: Axial computed tomography images of the head/brain without intravenous contrast. CTDI is 23.18 mGy and DLP is 466.85 mGy-cm. Automated exposure control was utilized for the study. A dose lowering technique was utilized adhering to the principles of ALARA. COMPARISON: Prior head CT from September 20, 2022. FINDINGS: Brain: Unremarkable. No hemorrhage. Mild to moderate nonspecific white matter changes.. No edema. Ventricles: Unremarkable. No ventriculomegaly. Bones/joints: Unremarkable. No acute fracture. Soft tissues: Unremarkable. Sinuses: Chronic left maxillary and ethmoid sinusitis. No acute sinusitis. Mastoid air cells: Unremarkable as visualized. No mastoid effusion. IMPRESSION: No evidence of acute intracranial pathology. HISTORY: Head pain. TECHNIQUE: Multiplanar multiecho MR imaging of the brain was performed without the use of IV contrast COMPARISON: Head CT dated 11/18/2024. FINDINGS: The cerebellar tonsils do not extend below the foramen magnum. The sella is not expanded. The included upper cervical spinal cord is unremarkable. No areas of restricted diffusion to suggest acute infarct. Patchy T2/FLAIR hyperintensity throughout the periventricular and subcortical white matter is nonspecific. There is moderate diffuse volume loss. No areas of susceptibility artifact to suggest acute intracranial hemorrhage. Ventricular caliber is appropriate. The fourth ventricle is midline. The basal cisterns are patent. The major intracranial flow voids are maintained. The globes and orbits are unremarkable. Soft tissues about the skull base and scalp are unremarkable. The paranasal sinuses and mastoid air cells are well aerated. IMPRESSION: 1. No evidence of acute intracranial hemorrhage, infarct, or mass effect. 2. Patchy T2/FLAIR hyperintensity involving the periventricular and subcortical white matter is nonspecific, but commonly attributed to chronic microvascular ischemic changes. Other differential considerations include demyelinating disease or other infectious or inflammatory etiologies. 3. Moderate diffuse volume loss. HISTORY: Pain radiating into the head. Neck pain. TECHNIQUE: Multiplanar multiecho MR imaging of the cervical spine was performed without the use of IV contrast. COMPARISON: None. FINDINGS: Cervical spine alignment is relatively well-preserved. The vertebral body heights are maintained without compression deformity. Degenerative endplate marrow changes are noted, which are most pronounced in the upper thoracic spine. The cervical spinal cord is normal in caliber and signal intensity. The included posterior fossa is unremarkable. The paraspinal and prevertebral soft tissues are unremarkable. The included lung apices are unremarkable. At C2-3: Mild degenerative disc disease and facet arthrosis. Mild central canal stenosis related to posterior disc osteophyte complex. Mild left neuroforaminal narrowing. The right neuroforamen is patent. At C3-4: Broad-based posterior disc osteophyte complex mildly narrows the central canal. Severe left and mild right neuroforaminal stenosis related uncovertebral and facet arthrosis. At C4-5: Mild degenerative disc disease. Broad-based posterior disc osteophyte complex mildly narrows the central canal. Mild bilateral neuroforaminal stenosis related to uncovertebral and facet arthrosis. At C5-6: Severe degenerative disc disease. Broad-based posterior disc osteophyte complex moderately narrows the central canal. Severe bilateral neuroforaminal stenosis related to uncovertebral and facet arthrosis. At C6-7: Severe degenerative disc disease. Broad-based posterior disc osteophyte complex mildly narrows the central canal. Moderate left neuroforaminal stenosis related to uncovertebral and facet arthrosis. Mild right neuroforaminal stenosis. At C6-7: Mild degenerative disc disease. No significant canal or foraminal stenosis. IMPRESSION: 1. Advanced multilevel degenerative spondylosis of the cervical spine as detailed above by level with varying degrees of central canal and neuroforaminal stenosis. Findings are most pronounced at C5-6 resulting in moderate central canal stenosis and severe bilateral neuroforaminal stenosis. 2. No cord edema or cord signal change. 3. Additional findings as above. PG Care Time/CCT Total # of Minutes Spent Total Time Spent with Patient: Total time spent is greater than 50% in coordination of care (as documented) at patient's floor/unit and/or counseling patient: [place] [address] INT INP/OBS CARE 1/40MIN Patient Type New History Problem Focused Exam Problem Focused Medical Decision Making Straight Forward Diagnoses Myalgia M79.10
[2024-11-21 07:04] LABS: BUN Creatinine Ratio 18.8 (10-20); Creatinine Clr Calc Pharmacy 38.6 ml/min; Potassium 4.7 mmol/L (3.5-5.1)
[2024-11-21] MEDS: carvediloL 3.125 MG TAB PO SCH (07:57)
[2024-11-21] MEDS: MECLIZINE HCL 25 MG TAB PO PRN (07:58)
[2024-11-21] MEDS: predniSONE 20 MG TAB PO SCH (09:58)
--- NOTE | 2024-11-21 17:06 | Hospitalist Progress Note ---
Date of Service November 21, 2024 Assessment & Plan (1) Myalgia: (2) Headache: Plan (1) Myalgia: the patient has had numerous systemic symptoms for at least 2 weeks, possibly as long as 4 weeks, including but not limited to headaches, diffuse upper body myalgias, fatigue/weakness, excessive sleeping, poor appetite, GI intolerance (nausea, etc), weight loss, dizziness, shakiness/tremors, and recent fever (which occurred just prior to her hospital stay at [facility] about 7-10 days ago) by her history she seemed to have had rapid improvement in her fatigue/weakness/upper body myalgias/etc with IV steroids while at [facility] right wrist & right hand arthropathy also resolved rapidly with steroids unfortunately there were no baseline inflammatory markers drawn while at the outside hospital per the labs that I saw in her discharge packet she did have a mild leukocytosis at time of admission there she was COVID/flu/RSV negative during that stay at this point I am concerned about either PMR and/or temporal arteritis (overlap) vs some other autoimmune disease I cannot rule out occult infection given the recent fever, leukocytosis, etc. although her sed rate is normal and CRP is only mildly elevated at 3 it is very possible that the sed rate/crp were much higher prior to recent steroid use (she was on IV steroids at [facility], then sent home on Medrol dose pack) she MARKEDLY improved with all symptoms following a single dose of 20mg prednisone on 11/19/24 this is especially suggestive of PMR blood cx's remain negative lyme was negative babesia/anaplasmosis screens were negative B12/CPK were both normal MRI brain w/o acute findings; no CVA, no ICH, etc. 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 ANIKET & RF sent/pending unfortunately she is declining a temporal artery biopsy gen surg was consulted and offered to perform such on 11/22/24 but patient consistently is NOT wanting to pursue this I counseled her family that the only way to rule out temporal arteritis is to perform a TA biopsy discussed that the typical prednisone dosing for PMR (10mg/day or less) is lower than what is used for temporal arteritis (40-60mg/day) discussed risk of stroke, blindness, etc if temporal arteritis goes undiagnosed/untreated although the risk of TA is low, I believe it is sizable enough to pursue biopsy with her vague head/neck symptoms plan - keep prednisone at 40mg/day today, then cut to 30mg/day tomorrow, then continue to wean down to 10mg daily send to rheumatology in [place] post-d/c for ongoing PMR management await RF/ANIKET/anaplasmosis DNA testing plan d/w pt's family at bedside again today (son, grand-daughter, etc) (2) Dizziness: 2nd to volume contraction/low BP resolved although technically still mildly orthostatic today she does not have any dizziness nothing to suggest vertigo either of central or peripheral etiology started coreg back today at 3.125mg BID she tolerated this; thus increase to 6.25mg BID tomorrow I don't think she will need the previous 25mg BID hold Entresto for now; defer to outpatient cardiology if & when to resume (EF is normal) hold lasix (3) Generalized weakness: Markedly improved s/p prednisone 20mg x 1 on 11/19, followed by additional prednisone yesterday and today as noted in #1 above (4) Fall: fortunately no obvious injuries from such had head strike - CT head neg; CT c-spine neg MRI brain and MRI c-spine w/o acute findings (5) Dehydration: resolved s/p IV fluids (6) Hypotension: resolved s/p IV fluids and holding multiple BP lowering meds (coreg, Entresto, etc) (7) Hyponatremia: initially thought 2nd volume contraction Na level improved from about 130 to 135 with isotonic fluids Na level then began to drift down again this am was 130 this afternoon was 127 she appears euvolemic on exam today urine osm is not elevated urine Na is 60s she is on chronic lasix thus urine Na likely to not be terribly helpful add NaCl tabs 1gm BID repeat BMP am if Na level proves stubborn to fix then have nephrology see in consult will attempt to get records from [facility] to see what she chronically runs (8) Swelling of right wrist: possibly had gout or pseudogout attack while at [facility] recently responded rapidly to steroid therapy there no active synovitis on exam once again today ANIKET and RF pending (9) Leukocytosis: present on admission 2nd to occult infection? 2nd to recent medrol dosepack? 2nd to autoimmune or inflammatory disease? WBC count normalized without antibiotic therapy blood cx's negative (10) Cardiomyopathy: EF preserved on echo this admission no evidence of decompensated CHF resume coreg today at 3.125mg BID, and since she tolerated such will increase to 6.25mg BID tomorrow hold Entresto hold lasix (usually takes M/W/F) (11) Chronic heart failure with preserved ejection fraction: as above (12) Abnormal TSH: this will need repeating in about 4 weeks as outpatient even if she indeed has hypothyroidism it would not explain her wide variety of symptoms (weight loss, headaches, fever, etc) (13) CAD (coronary artery disease): non-obstructive 2018 heart cath - <30% non-obstructive CAD in all major and minor vessels (14) Hiatal hernia: large known issue dating back several years cont PPI family extensively updated at bedside again today including 1 son, 1 daughter in law, and grand-daughter Aga yobani d/w gen surg by [place] [employer] Na level tomorrow will dictate if discharge is possible tomorrow Admission and Anticipated Discharge Date Admission Date: November 19, 2024 Subjective tele overnight wnl - NSR patient feeling very well no specific complaints other than occasional tenderness over her head from the recent head injury she is eating well denies any dizziness or lightheadedness still "shaky" inside and outside does NOT want the temporal artery biopsy- she simply is not interested denies any neck pain, shoulder pain, upper chest pain, etc. denies excessive fatigue Review of Systems Review of Systems: gen - no fevers or chills musculo - denies myalgias; denies new joint pains; no swelling in any joint cv - no chest pain pulm - no dyspnea; took a walk with nursing staff - lowest O2 sat 90-91%; was talking the whole walk per staff, mild MCHUGH noted during the walk Physical Exam Physical Exam: gen - looks great, animated with good energy; NAD head - minimal-mild tenderness right temporal artery; none on left neck - no JVD mouth - MMM heart - RRR, s1 s2, 1/6 systolic murmur LSB lungs - CTA b/l abd - soft NT ND BS+ ext - no peripheral edema, pulses b/l feet 2+ musculo - OA changes of multiple fingers especially the thumb/wrist joint b/l; no active synovitis of shoulders, elbows, fingers, knees, ankles Results & Data Results & Data Vital Signs (Past 12 Hours) Vital Signs Temp Pulse Pulse Resp BP Pulse Ox O2 Del Method 11/21/24 14:53 36.5 C 74 20 139/74 94 Room Air 11/21/24 14:49 74 11/21/24 11:12 36.8 C 71 18 142/80 H 94 Room Air 11/21/24 07:26 37.1 C 73 18 135/72 93 Room Air 11/21/24 07:08 72 Laboratory Results Laboratory Results - last 24 hr 11/21/24 11/21/24 11/21/24 06:07 11:54 15:09 Sodium 130 L 127 L Potassium 4.7 Chloride 99 Carbon Dioxide 26 Anion Gap 5 BUN 18 Creatinine 0.96 Est Cr Clr Drug Dosing 38.6 eGFR 57.98 BUN/Creatinine Ratio 18.8 Glucose 146 H Calcium 8.0 L Urine Osmolality 266 L Ur Random Sodium 66 A. phagocytophilum DNA Pending PG Care Time/CCT Total # of Minutes Spent Total Time Spent with Patient: Total time spent is greater than 50% in coordination of care (as documented) at patient's floor/unit and/or counseling patient: Coding Level of Care Code 64259 SUB INP/OBS CARE 3/50MIN Diagnoses Myalgia M79.10 Headache R51.9
[2024-11-21] MEDS: SODIUM CHLORIDE 1 GM TABLET PO SCH (17:38)
[2024-11-21] MEDS: ONDANSETRON INJ 2 MG/ML 2 ML VIAL IV PRN (20:44)
[2024-11-22] MEDS: MELATONIN 3 MG TAB PO PRN (02:16)
[2024-11-22 07:28] LABS: BUN Creatinine Ratio 18.6 (10-20); C Reactive Protein 1.23 mg/dl (0-0.5); Calcium 8.6 mg/dl (8.6-10.3); Creatinine Clr Calc Pharmacy 38.2 ml/min; Potassium 3.9 mmol/L (3.5-5.1)
[2024-11-22] MEDS: predniSONE 10 MG TABLET PO SCH (08:13)
[2024-11-22] MEDS: carvediloL 6.25 MG TAB PO SCH (08:14)
[2024-11-22 11:14] VITALS: RESP 20; TEMP 98.6; O2SAT 91
--- NOTE | 2024-11-22 12:02 | Discharge Summary ---
Discharge Summary Date of Service date of admission - November 19, 2024 date of discharge - November 22, 2024 Principal Dx & Hospital Course #1 = Principal Diagnosis (1) Myalgia: (2) Headache: Plan (1) Myalgia: the patient reported numerous systemic symptoms for at least 2 weeks, possibly as long as 4 weeks, including but not limited to headaches, diffuse upper body myalgias (shoulders/neck region), fatigue/weakness, excessive sleeping, poor appetite, GI intolerance (nausea, etc), weight loss, dizziness, shakiness/tremors, and recent fever (which occurred just prior to her hospital stay at [facility] about 7-10 days prior to this admission) by her history she seemed to have had rapid improvement in her fatigue/weakness/upper body myalgias/etc with IV steroids while at [facility] right wrist & right hand arthropathy also resolved rapidly with steroids unfortunately there were no baseline inflammatory markers (ie ESR, CRP) drawn while at the [facility] per review of her records she did have a mild leukocytosis at time of admission there she was COVID/flu/RSV negative during that stay although she has considerable cervical DJD this would not account for her systemic symptoms (fatigue, weakness, weight loss, etc) thus, there were considerable concerns for polymyalgia rheumatica (PMR) and/or temporal arteritis vs some other autoimmune disease although her sed rate was normal here (27) and CRP was only mildly elevated at 3 it is very possible that the sed rate/crp were much higher prior to recent steroid use (she was on IV steroids at [facility], then sent home on Medrol dose pack) while at [facility] she MARKEDLY improved with all symptoms following a single dose of 20mg prednisone on 11/19/24 within 24 hours of this dose of prednisone her energy was improved, her neck/shoulder/head discomforts were improved, and other systemic symptoms were better (appetite, etc) this rapid response to low-dose prednisone was suggestive of PMR blood cx's were negative while hospitalized lyme screen was negative babesia/anaplasmosis screens were negative anaplasmosis DNA test returned negative B12/CPK were both normal MRI brain w/o acute findings; no CVA, no ICH, etc. 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 ANIKET returned negative Rheumatoid factor was negative Uric acid level was 5.9 TSH was high at 9.5, and free T4 was 1.1 She is not on thyroid replacement therapy Doubt a mild hypothyroid state is the cause of all presenting symptoms [id number] recommend a repeat TSH in 4-6 weeks and, if still elevated, could consider replacement at that time the patient had vague bitemporal tenderness/head pain while hospitalized, especially on the right although this discomfort could have been from her recent fall with head injury I was concerned that she could have temporal arteritis (especially given the constellation of systemic symptoms she had been having) unfortunately she ultimately declined a temporal artery biopsy general surgery was consulted and offered to perform such on 11/22/24 but patient consistently declined the biopsy I counseled the patient & her family that the only way to rule out temporal arteritis is to perform a temporal artery biopsy discussed that the typical prednisone dosing for PMR is lower than what is used for temporal arteritis discussed risk of stroke, blindness, etc if temporal arteritis goes undiagnosed/untreated discussed time frame of getting the biopsy (within 2 weeks of starting prednisone) patient stated she would think about the biopsy after discharge patient was discharged home on prednisone 10mg daily and she was asked to remain on such until she has follow-up with rheumatology, Dr Phillip Taylor (2) Dizziness: 2nd to volume contraction/low BP resolved with gentle IV fluids and making multiple adjustments to her cardiac/BP meds even by time of discharge she had about a 20-25 point drop in BP with standing but fortunately was asymptomatic from this amount of orthostasis nothing to suggest vertigo either of central or peripheral etiology MRI brain without old or new CVA Entresto, lasix, and coreg were all held initially will cont to hold Entresto at discharge lasix dosing was reduced to twice weekly from 3 times/week coreg was resumed and titrated to 6.26mg BID (but much lower than prior dose of 25mg BID) defer to outpatient cardiology if & when to resume Entresto (EF is normal) defer to cardiology & her PCP additional titration of coreg (3) Generalized weakness: Markedly improved s/p prednisone 20mg x 1 on 11/19, followed by additional low- dose prednisone for the rest of her stay see #1 above re: discussion about possible PMR (4) Fall: occurred day of admission hit her head on the bathtub at home fortunately no obvious injuries from such (other than a bruise on her forehead) orthostasis/volume depletion the likely cause of her fall CT head negative; CT c-spine negative MRI brain and MRI c-spine w/o acute findings (5) Dehydration: resolved s/p IV fluids (6) Hypotension: resolved s/p IV fluids and holding multiple BP lowering meds (coreg, Entresto, etc) (7) Hyponatremia: initially thought 2nd volume contraction Na level improved from about 130 to 135 with isotonic fluids Na level then began to drift down once again, hitting 127 at the lowest when the Na level dropped later in the stay by this point she appeared euvolemic on exam urine osm was not elevated urine Na was 60s she is on chronic lasix thus urine Na likely to not be terribly helpful added NaCl tabs 1gm BID repeat Na level before discharge was 132 records from [facility] were reviewed and Na level there was also mildly low --> * Na 131 on 11/17/24 * Na 133 on 11/08/24 recommended a repeat BMP on November 26 to ensure stability of her Na level chronic lasix use, abnormal TSH, fluctuating PO intake, etc could all be contributing to her mild hyponatremia (8) Swelling of right wrist: experienced such while hospitalized at [facility] (11/06/24 to 11/08/24) suspect she had had a pseudogout attack records were received & reviewed from [place] she had a right hand x-ray on 11/07/24 showing --> her right wrist/hand probable pseudogout flare responded rapidly to steroid therapy while at [facility] she had no active synovitis on exam during her stay at [facility] again ANIKET and RF both returned negative (9) Leukocytosis: present on admission 2nd to occult infection? 2nd to recent medrol dosepack usage? 2nd to autoimmune or inflammatory disease? WBC count normalized without antibiotic therapy blood cx's were negative extensive work-up during the stay showed NO infectious etiology (10) Cardiomyopathy: EF preserved on echo this admission no evidence of decompensated CHF at any point while here * resumed coreg and discharged home on dose of 6.25mg BID (previously on 25mg BID) * Entresto on hold at discharge * lasix resumed albeit at lower dose of twice weekly rather than 3 days/week (11) Chronic heart failure with preserved ejection fraction: as above (12) Abnormal TSH: TSH was high at 9.5, and free T4 was 1.1 She is not on thyroid replacement therapy at baseline Doubt a mild hypothyroid state was the cause of all presenting symptoms (weight loss, poor appetite, etc) [id number] recommend a repeat TSH in 4-6 weeks and, if still elevated, could consider replacement at that time (13) CAD (coronary artery disease): non-obstructive 2018 heart cath - <30% non-obstructive CAD in all major and minor vessels (14) Hiatal hernia: large known issue dating back several years cont PPI twice daily added carafate 1gm qid prn for refractory symptoms (15) Shortness of breath: had such during her stay at [facility] earlier in October underwent 2 chest CTs during that hospitalization CTA chest negative for PE, negative for pneumonia, negative for pulmonary edema/effusions COVID/flu/RSV here were negative she did not have any dyspnea during this hospital stay (16) Shakiness/Tremors: minimal at time of discharge due to steroid side effect? due to low blood pressure at time of admission? other? no evidence of hyperthyroidism no evidence of myoclonus on exam patient denied anxiety f/u with PCP for this Notes For Next Care Provider 1. Referral to rheumatology in [place] for suspected PMR 2. Return visit to her primary insurance claims examiner due to med changes while here 3. BMP on November 26, 2024 to ensure stability of sodium level Medication Changes From Visit 1. prednisone 10mg daily at least until seen by [place] [facility] 2. HOLD Entresto 3. RESUME lasix but lower dose from 3 days/week to twice weekly 4. LOWER coreg to 6.25mg BID 5. Carafate prn for GERD Admission HPI Per Admitting Provider Patient is a 83-year-old female with a past medical history of cardiomyopathy, GERD, hiatal hernia, anemia. She presented to the ED due to a fall secondary to dizziness, resulting in a head strike on her bathtub. Patient also endorses fatigue, weakness, and shakiness for several weeks. She is being admitted for cardiac workup including stress echocardiogram and PT/OT evals. Patient seen at bedside with her son and daughter present. She stated that today she got dizzy and fell in her bathroom hitting her head on her bathtub. She denies feeling short of breath or with chest pain prior to the fall. Patient stated that she recently was admitted at [facility] for 2 days due to her weakness. She stated that for the past few weeks she has felt fatigued, weak, she feels like she sleeps all the time and does not really care about things. Her family stated that she does not eat good, she eats unhealthy and not much at all. Patient stated she drinks plenty of fluids and does not feel dehydrated despite what her labs today. She stated that she also has been shaky for several weeks. She endorses diarrhea, she stated it is chronic and unchanged. She also stated she was vomiting prior to admission at [place] which resolved on discharge. She was dry heaving in ED here but that resolved with Zofran. She denies current nausea. Patient denies fever, chills, headache, vision changes, rhinorrhea, sore throat, cough, sputum production, dyspnea, dyspnea on exertion, chest pain, abdominal pain, numbness, tingling. Patient does not use nicotine products or drink alcohol. She denies past history of previous VTE or DM. She stated she does have oxygen as needed at home for on exertion however she has not used in a long time. She did not get her evening medications, ordered on admission. She wishes to be full code after long discussion with patient and her family, she would not want mechanical ventilation or prolonged CPR. She is agreeable to attempting CPR if found to have no pulse. Reviewed patient's pertinent chart from [facility]. Appears patient presented to the emergency room secondary to complaints of shoulder and neck pain, weakness, and fatigue. Noted that she had COVID in the past and was formally on oxygen however never formally diagnosed with acute hypoxemia. Her son works for a [employer] and was giving her supplemental oxygen through his company on an as-needed basis. Note stated she was hypoxic and chest CTA revealed bilateral atelectasis. They completed a walking pulse ox to next which qualified her for home oxygen of 2L on exertion. She was found to have a low potassium which noted to be repleted. They noted the patient does have a history of gout however is not on any medications, she was treated with IV steroids for right wrist pain and sent with a Medrol Dosepak on discharge. She was discharged with home health. Patient's white count 12.7 on 11/08/2024. Creatinine 0.8 on 11/08/2024. Of note patient's granddaughter is a nurse here and stated that patient is not doing well at home due to the weakness and dizziness. Discharge Exam gen - looks great, animated with good energy; NAD head - minimal tenderness right temporal artery; none on left; bruise upper portion of forehead neck - no JVD mouth - MMM heart - RRR, s1 s2, 1/6 systolic murmur LSB lungs - CTA b/l abd - soft NT ND BS+ ext - no peripheral edema, pulses b/l feet 2+ musculo - OA changes of multiple fingers especially the thumb/wrist joint b/l; no active synovitis of shoulders, elbows, fingers, knees, ankles, or wrists Discharge Plan Discharge Items Patient Disposition: Home - Self-Care Reason For Visit: DIZZINESS, FALL, WEAKNESS Discharge Diagnosis: 1. dizziness - due to low blood pressure - resolved 2. fall - due to #1 3. weakness - likely multiple factors including low blood pressure, possible "PMR," etc 4. suspected polymyalgia rheumatica ("PMR") 5. recent pseudogout of the right wrist and hand - resolved 6. history of cardiomyopathy 7. large hiatal hernia 8. abnormal TSH (thyroid level) - this will need to be repeated within 3-4 weeks 9. severe arthritis of the cervical spine 10. shakiness/tremors - due to low blood pressure? steroid side effects? 11. concern for temporal arteritis (giant cell arteritis) - biopsy declined 12. mildly low sodium - discharge level 132 Activity: As commented below Activity Comment: gradually increase activities as tolerated Non-emergency contact: Primary Care Provider and Specialist Call non-emergency contact if: you have any medication questions, your symptoms worsen, your pain is not controlled, your pain is worsening, your pain is unusual for you, your pain is concerning for you and you have a fever Follow-up/Referrals: Phillip Taylor [Outside Practitioners] - 12/17/24 8:20 am (Rheumatology appointment scheduled for February 16, 2025 at 8:20 am. They will mail you a paperwork packet. ) Hunter Garcia MD [Primary Care Provider] - 12/03/24 12:15 pm (Hospital follow up is scheduled for December 03, 2024 at 12:15pm) Diet: Heart Healthy Ambulatory Orders: Basic Metabolic Panel (Routine) Timeframe: [id number] Location: Determined by Patient Ordered By: Chino Lerner Attending Provider Instructions: Mrs Sd, You were hospitalized after having had a fall in your bathroom at home. You had hit your head when you fell. Leading up to the fall you had been feeling poorly for several weeks including upper chest/shoulders/neck discomfort & tenderness, severe fatigue/weakness, lack of appetite, weight loss, dizziness, shakiness, etc. You were recently hospitalized at [facility] for fever, right hand/wrist swelling, and other symptoms. We performed a large number of tests to determine why you have been feeling so poorly. MRI brain showed no old or new stroke. We did not see tumor, bleeding, or fracture of the skull. 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 Testing for lyme disease, pneumonia, COVID, influenza, anaplasmosis, and bloodstream infection were all negative. You responded very rapidly to a small dose of prednisone (20mg). Many of your symptoms either improved or resolved within 24 hours of receiving the prednisone. This may suggest that you have a condition called "PMR" (polymyalgia rheumatica) - see handouts. PMR, gout, and a small number of other conditions respond very rapidly to prednisone. You had received steroids at [facility] and, by report from your family, your symptoms had gotten better rapidly at that time as well. We are still trying to rule out other conditions such as lupus, rheumatoid arthritis, etc - labs for these conditions are pending. Due to nonspecific pain in your neck, on top of your head, and some pain over the sides of the head (temporal artery region) at times - and given your other symptoms - I recommended a temporal artery biopsy but you have declined this. The only way to rule this condition out is by way of a biopsy. If you reconsider this please let us know as soon as possible as missing this diagnosis could lead to stroke, loss of vision, etc. You would need to let us know within the next 7-10 days at the latest. Your dizziness was likely due to low blood pressure. We adjusted your medicines to improve the blood pressure. Recommendations - 1. Take prednisone as follows - * take 20mg (2 tablets of 10mg) on 11/23/24 only * starting 11/24/24 take 10mg once daily * take the prednisone with food * do not stop the prednisone unless your doctors back home instruct you to do so 2. Heart medicines - * carvedilol - take a lower dose of 6.25mg twice daily; take your first dose tonight * HOLD Entresto * change your furosemide from Fri/Fri/Friday to Tuesdays & 3. If you have heartburn or stomach upset you can take carafate (sucralfate) 1gm up to 4 times a day as needed. Continue your pantoprazole 40mg twice daily as previous. 4. Please have a blood draw THIS FRIDAY back home to recheck your sodium. I have included a lab slip for that purpose. You don't have to fast for this. Follow-up - see separate section Return to [facility] if - * you have fevers over 100 degrees * you have nausea and/or vomiting * you have worsening shortness of breath * you have severe dizziness or lightheadedness * you develop severe headaches, jaw pain, loss of vision or visual disturbance, etc. * any other concerns It was our pleasure to care for you! -Dr Campos Pending Studies at Discharge: Yes Studies:: ANIKET, rheumatoid arthritis testing, anaplasmosis testing (a form of tick-borne disease), blood cultures Stand-Alone Forms: My [facility], Smoking Cessation Medications and DC Order Prescriptions: New prednisone 10 mg Tablet 10 mg PO DAILY Qty: 30 2RF sucralfate [Carafate] 1 gram tablet 1 g PO ACHS PRN (Reason: stomach upset/heartburn) Qty: 30 0RF Continued pantoprazole [Protonix] 40 mg tablet,delayed release (DR/EC) 40 mg PO BID 90 Days Qty: 180 3RF atorvastatin 80 mg tablet 80 mg PO HS tolterodine 4 mg capsule,extended release 24hr 4 mg PO HS aspirin 81 mg Tablet,Delayed Release (Dr/Ec) 81 mg PO QAM paroxetine HCl 20 mg tablet 20 mg PO HS cyanocobalamin (vitamin B-12) 1,000 mcg/mL solution 1,000 mcg subcut .EVERY 3 WEEKS ferrous sulfate [iron] 325 mg (65 mg iron) Tablet 325 mg PO QAM omega 0-pyv-txd-fish oil [Fish Oil] 1,000 mg (120 mg-180 mg) Capsule 1 cap PO HS PreserVision AREDS-2 250-90-40-1 mg Capsule 1 tab PO DAILY Qty: 0 Rx Instructions: Calcium 1000mg-Magnesium 400mg-Zinc 15mg-Vitamin D3 600iu tramadol 50 mg tablet 50 mg PO Q6H PRN (Reason: Pain) calcium carbonate 600 mg calcium (1,500 mg) Tablet 600 mg PO DAILY diclofenac sodium 1 % Gel 2 g TOPICAL QID PRN (Reason: Pain) Rx Instructions: apply to single elbow, wrist or hand; for hand includes palm/fingers/back of hand Changed furosemide [Lasix] 40 mg tablet 20 mg PO TUTH Qty: 1 0RF Patient Comments: takes at hs and takes prn if weight gain Rx Instructions: take on Tuesdays and carvedilol 6.25 mg tablet 6.25 mg PO BID Qty: 60 2RF Rx Instructions: must administer with a meal/food; note lower dose Held Entresto 24-26 mg tablet 1 tab PO BID Hold Instructions: please hold unless your family doctor or insurance claims examiner recommends continuing it Patient Comments: Hypotensive on higher doses. naproxen 500 mg tablet 500 mg PO DAILY PRN (Reason: Back Pain) Hold Instructions: hold since you will be taking prednisone Krames/Other Patient Handouts: Polymyalgia Rheumatica, ED Temporal Arteritis Admission Data Admit Date/Time: 11/19/24 01:02 Attending Provider: Chino Campos Admit Provider: Zina Hooper Primary Care Provider: Hunter Garcia Other Providers: Kris Mae; Jese Newman Other Interventions: Discharge Summary Assessment (RN) Last Done: 11/22/24 12:06 Hospital Stay Data Consultations 11/20/24 15:48 Consult General Surgery Routine 11/22/24 09:03 HIM [Consult Health Information Management] Stat PT, OT Procedures Performed Echocardiogram: Diagnostic Imagining Performed Cervical Spine CT 11/18/24 21:19 Exam(s): CT C SPINE EXAM: CT Cervical Spine Without Intravenous Contrast CLINICAL HISTORY: Reason for exam: fall. TECHNIQUE: Axial computed tomography images of the cervical spine without intravenous contrast. CTDI is 23.18 mGy and DLP is 466.85 mGy-cm. Automated exposure control was utilized for the study. A dose lowering technique was utilized adhering to the principles of ALARA. COMPARISON: No relevant prior studies available. FINDINGS: Vertebrae: Unremarkable. No acute fracture. Discs/spinal canal/neural foramina: No acute findings. No spinal canal stenosis. Soft tissues: Unremarkable. IMPRESSION: No evidence of acute cervical spine pathology. Electronically signed by: Nya Chen MD 11/19/24 00:[address] 11/18/24 21:19 Exam(s): CT HEAD Without Contrast EXAM: CT Head Without Intravenous Contrast CLINICAL HISTORY: Reason for exam: fall. TECHNIQUE: Axial computed tomography images of the head/brain without intravenous contrast. CTDI is 23.18 mGy and DLP is 466.85 mGy-cm. Automated exposure control was utilized for the study. A dose lowering technique was utilized adhering to the principles of ALARA. COMPARISON: Prior head CT from September 20, 2022. FINDINGS: Brain: Unremarkable. No hemorrhage. Mild to moderate nonspecific white matter changes.. No edema. Ventricles: Unremarkable. No ventriculomegaly. Bones/joints: Unremarkable. No acute fracture. Soft tissues: Unremarkable. Sinuses: Chronic left maxillary and ethmoid sinusitis. No acute sinusitis. Mastoid air cells: Unremarkable as visualized. No mastoid effusion. IMPRESSION: No evidence of acute intracranial pathology. Electronically signed by: Nya Chen MD 11/19/24 01:13 AM Brain MRI 11/20/24 13:22 HISTORY: Head pain. TECHNIQUE: Multiplanar multiecho MR imaging of the brain was performed without the use of IV contrast COMPARISON: Head CT dated 11/18/2024. FINDINGS: The cerebellar tonsils do not extend below the foramen magnum. The sella is not expanded. The included upper cervical spinal cord is unremarkable. No areas of restricted diffusion to suggest acute infarct. Patchy T2/FLAIR hyperintensity throughout the periventricular and subcortical white matter is nonspecific. There is moderate diffuse volume loss. No areas of susceptibility artifact to suggest acute intracranial hemorrhage. Ventricular caliber is appropriate. The fourth ventricle is midline. The basal cisterns are patent. The major intracranial flow voids are maintained. The globes and orbits are unremarkable. Soft tissues about the skull base and scalp are unremarkable. The paranasal sinuses and mastoid air cells are well aerated. IMPRESSION: 1. No evidence of acute intracranial hemorrhage, infarct, or mass effect. 2. Patchy T2/FLAIR hyperintensity involving the periventricular and subcortical white matter is nonspecific, but commonly attributed to chronic microvascular ischemic changes. Other differential considerations include demyelinating disease or other infectious or inflammatory etiologies. 3. Moderate diffuse volume loss. Electronically signed by Kuldip Christie 11-20-2024 3:15 PM Cervical Spine MRI 11/20/24 13:22 HISTORY: Pain radiating into the head. Neck pain. TECHNIQUE: Multiplanar multiecho MR imaging of the cervical spine was performed without the use of IV contrast. COMPARISON: None. FINDINGS: Cervical spine alignment is relatively well-preserved. The vertebral body heights are maintained without compression deformity. Degenerative endplate marrow changes are noted, which are most pronounced in the upper thoracic spine. The cervical spinal cord is normal in caliber and signal intensity. The included posterior fossa is unremarkable. The paraspinal and prevertebral soft tissues are unremarkable. The included lung apices are unremarkable. At C2-3: Mild degenerative disc disease and facet arthrosis. Mild central canal stenosis related to posterior disc osteophyte complex. Mild left neuroforaminal narrowing. The right neuroforamen is patent. At C3-4: Broad-based posterior disc osteophyte complex mildly narrows the central canal. Severe left and mild right neuroforaminal stenosis related uncovertebral and facet arthrosis. At C4-5: Mild degenerative disc disease. Broad-based posterior disc osteophyte complex mildly narrows the central canal. Mild bilateral neuroforaminal stenosis related to uncovertebral and facet arthrosis. At C5-6: Severe degenerative disc disease. Broad-based posterior disc osteophyte complex moderately narrows the central canal. Severe bilateral neuroforaminal stenosis related to uncovertebral and facet arthrosis. At C6-7: Severe degenerative disc disease. Broad-based posterior disc osteophyte complex mildly narrows the central canal. Moderate left neuroforaminal stenosis related to uncovertebral and facet arthrosis. Mild right neuroforaminal stenosis. At C6-7: Mild degenerative disc disease. No significant canal or foraminal stenosis. IMPRESSION: 1. Advanced multilevel degenerative spondylosis of the cervical spine as detailed above by level with varying degrees of central canal and neuroforaminal stenosis. Findings are most pronounced at C5-6 resulting in moderate central canal stenosis and severe bilateral neuroforaminal stenosis. 2. No cord edema or cord signal change. 3. Additional findings as above. Electronically signed by Kuldip Christie 11-20-2024 3:41 PM Pending Results Patient Have Any Pending Studies at Discharge: Yes Discharge Instructions Given to Patient (Per Discharging Provider) Mrs Beaver, You were hospitalized after having had a fall in your bathroom at home. You had hit your head when you fell. Leading up to the fall you had been feeling poorly for several weeks including upper chest/shoulders/neck discomfort & tenderness, severe fatigue/weakness, lack of appetite, weight loss, dizziness, shakiness, etc. You were recently hospitalized at [facility] for fever, right hand/wrist swelling, and other symptoms. We performed a large number of tests to determine why you have been feeling so poorly. MRI brain showed no old or new stroke. We did not see tumor, bleeding, or fracture of the skull. 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 Testing for lyme disease, pneumonia, COVID, influenza, anaplasmosis, and bloodstream infection were all negative. You responded very rapidly to a small dose of prednisone (20mg). Many of your symptoms either improved or resolved within 24 hours of receiving the prednisone. This may suggest that you have a condition called "PMR" (polymyalgia rheumatica) - see handouts. PMR, gout, and a small number of other conditions respond very rapidly to prednisone. You had received steroids at [facility] and, by report from your family, your symptoms had gotten better rapidly at that time as well. We are still trying to rule out other conditions such as lupus, rheumatoid arthritis, etc - labs for these conditions are pending. Due to nonspecific pain in your neck, on top of your head, and some pain over the sides of the head (temporal artery region) at times - and given your other symptoms - I recommended a temporal artery biopsy but you have declined this. The only way to rule this condition out is by way of a biopsy. If you reconsider this please let us know as soon as possible as missing this diagnosis could lead to stroke, loss of vision, etc. You would need to let us know within the next 7-10 days at the latest. Your dizziness was likely due to low blood pressure. We adjusted your medicines to improve the blood pressure. Recommendations - 1. Take prednisone as follows - * take 20mg (2 tablets of 10mg) on 11/23/24 only * starting 3/5/25 take 10mg once daily * take the prednisone with food * do not stop the prednisone unless your doctors back home instruct you to do so 2. Heart medicines - * carvedilol - take a lower dose of 6.25mg twice daily; take your first dose tonight * HOLD Entresto * change your furosemide from Fri/Fri/Friday to Tuesdays & 3. If you have heartburn or stomach upset you can take carafate (sucralfate) 1gm up to 4 times a day as needed. Continue your pantoprazole 40mg twice daily as previous. 4. Please have a blood draw THIS FRIDAY back home to recheck your sodium. I have included a lab slip for that purpose. You don't have to fast for this. Follow-up - see separate section Return to [facility] if - * you have fevers over 100 degrees * you have nausea and/or vomiting * you have worsening shortness of breath * you have severe dizziness or lightheadedness * you develop severe headaches, jaw pain, loss of vision or visual disturbance, etc. * any other concerns It was our pleasure to care for you! -Dr Campos Total Time Total Time Spent Total Time Spent (In Minutes): 50 Coding Level of Care Code 40759 INP/OBS DISCH >30 MIN Diagnoses Myalgia M79.10 Headache R51.9
[2024-11-22 12:07] VITALS: BP 152/75; PULSE 67
[2024-11-23 09:28] LABS: Anti Nuclear Antibody Screen NEGATIVE (NEGATIVE); Rheumatoid Factor <10 IU/mL (<14)
== END 2024-11-22 15:36 | disposition home or self-care (01) | DRG 546 ==
LOC: EDINP 20:50 → ED 20:50 → SUATTDRO 11-19 01:02 → 2N 11-19 02:13